=== PATIENT | female | born 1940 | race Caucasian/White ===

== ENCOUNTER 2020-02-10 16:51 | Outpatient (REF) | payer MEDICARE, SELFPAY ==
--- NOTE | 2020-02-10 16:55 | MM_ITS ---
EXAMINATION: MM SCREENING DIGITAL BREAST TOMOSYNTHESIS, BILATERAL CLINICAL INFORMATION: Screening. Asymptomatic. The lifetime risk of breast cancer based on the Tyrer-Cuzick Model is 4%. COMPARISON: Mammography: 08/01/2018, 07/24/2017 TECHNIQUE: Digital breast tomosynthesis is performed in both the craniocaudal and mediolateral oblique views along with computer-aided detection (CAD). Synthesized 2D images are generated from the tomosynthesis. FINDINGS: There are scattered areas of fibroglandular density (ACR BI-RADS breast composition Category b). There are no significant masses, abnormal calcifications, or other abnormalities. There is biopsy clip marker central left breast again noted. No significant changes from prior studies. The axilla and skin contours are unremarkable. MM/MM tomosynthesis screening BI IMPRESSION: No mammographic evidence of malignancy. ASSESSMENT: BI-RADS 1: Negative RECOMMENDATION: Routine annual mammography screening. This patient's information was entered into a reminder system with a target due date for their next mammogram.
== END 2020-02-10 16:52 | disposition home or self-care (01) ==
LOC: HO.MAMMO 16:51
PROVIDERS: PCP Internal Medicine; Visit Provider Internal Medicine
DX: Z12.31 Encounter for screening mammogram for malignant neoplasm of breast (principal)
CPT/HCPCS: 77063; 77067

== ENCOUNTER 2020-04-04 12:34 | Emergency (ER) | payer MEDICARE, SELFPAY ==
[2020-04-04 12:52] VITALS: BP 152/94; BP 187/78; PULSE 80; PULSE 83; RESP 16; TEMP 36.1; O2SAT 96; O2SAT 97; BMI 24.0
--- NOTE | 2020-04-04 13:12 | XR_ITS ---
EXAMINATION: XR KNEE, LEFT CLINICAL INFORMATION: Fall, trauma, pain COMPARISON: None TECHNIQUE: Left knee is imaged in 4 views including crosstable lateral projection. FINDINGS: There is a fracture involving the lateral tibial plateau with mild depression. There may be fracture line extending through the lateral tibial spine. There is no dislocation. The distal femur, fibula, and patella appear intact. There is moderate suprapatellar effusion without visible fatty fluid level. No bony destructive process. XR/XR knee LT 4V IMPRESSION: Fracture lateral tibial plateau with mild depression.
--- NOTE | 2020-04-04 13:14 | ED.GENADULT ---
HPI - General Adult General Chief complaint: Extremity Injury, Lower <Ainsley Mejia NP - Last Filed: 04/04/20 17:49> Stated complaint: left knee pain <Ainsley Mejia NP - Last Filed: 04/04/20 17:49> Time Seen by Provider: 04/04/20 12:56 <Ainsley Mejia NP - Last Filed: 04/04/20 17:49> Source: patient and EMS <Ainsley Mejia NP - Last Filed: 04/04/20 17:49> Mode of arrival: EMS <Ainsley Mejia NP - Last Filed: 04/04/20 17:49> Limitations: no limitations <Ainsley Mejia NP - Last Filed: 04/04/20 17:49> History of Present Illness HPI narrative: 79-year-old female with a past medical history of AFib on Eliquis, anxiety, high cholesterol, hypothyroidism here with left knee pain. The patient tells me she was standing on a step stool which was 1 step up and when she stepped back step stool fell forward onto her causing her to twist her left knee. She was able to catch herself with her arms but landed on her left knee. She denies hitting her head or loss of consciousness. No headache, dizziness, vision changes, nausea or vomiting. No neck pain. The patient tells me she is unable to bear weight on the knee since the injury. <Ainsley Mejia NP - Last Filed: 04/04/20 17:49> Onset (ago): hour(s) <Ainsley Mejia NP - Last Filed: 04/04/20 17:49> Location: lower extremity (left knee) <Ainsley Mejia NP - Last Filed: 04/04/20 17:49> Radiation: non-radiation <Ainsley Mejia NP - Last Filed: 04/04/20 17:49> Severity: moderate <Ainsley Mejia NP - Last Filed: 04/04/20 17:49> Quality: aching <PEGGY Mix Last Filed: 04/04/20 17:49> Pain Consistency: constant <PEGGY Mix Last Filed: 04/04/20 17:49> Relieving factors: immobilization <PEGGY Mix Last Filed: 04/04/20 17:49> Exacerbating factors: movement <Ainsley Mejia NP - Last Filed: 04/04/20 17:49> Associated symptoms: denies other symptoms <PEGGY Mix Last Filed: 04/04/20 17:49> Treatments prior to arrival: none <PEGGY Mix Last Filed: 04/04/20 17:49> Related Data Home medications: Previous Rx's Medication Instructions Recorded levothyroxine 50 mcg tablet 50 mcg PO DAILY #90 tab 01/31/20 oxycodone 2.5 mg PO Q6H PRN #5 tab 04/04/20 baclofen 10 mg tablet 10 mg PO BEDTIME #20 tab 04/05/20 <PEGGY Mix Last Filed: 04/04/20 17:49> Allergies/adverse reactions: Allergies Allergy/AdvReac Type Severity Reaction Status Date / Time lovastatin Allergy Unknown Verified 10/18/19 00:00 No Known Allergies Allergy Unknown Unverified 01/06/20 15:29 atorvastatin AdvReac Unknown stomach Verified 12/22/19 00:00 upset <PEGGY Mix Last Filed: 04/04/20 17:49> Review of Systems Review of Systems: Yes all other systems are reviewed and are negative <PEGGY Mix Last Filed: 04/04/20 17:49> Constitutional: Constitutional: Reports no additional constitutional complaints, Denies body ache(s), Denies chills, Denies fever(s), Denies headache(s) and Denies weakness <PEGGY Mix Last Filed: 04/04/20 17:49> Eyes: Eyes: Reports no additional eye complaints and Denies change in vision <PEGGY Mix Last Filed: 04/04/20 17:49> ENT: Reports system reviewed and no additional complaints, except as documented, Denies dizziness, Denies headache(s), Denies nasal congestion, Denies nasal discharge and Denies neck pain <Ainsley Mejia NP - Last Filed: 04/04/20 17:49> Cardiovascular: Cardiovascular: Reports no additional cardiovascular complaints, Denies chest pain, Denies leg edema and Denies dyspnea <Ainsley Mejia NP - Last Filed: 04/04/20 17:49> Respiratory: Respiratory: Reports no additional respiratory complaints, Denies cough and Denies dyspnea <Ainsley Mejia NP - Last Filed: 04/04/20 17:49> Gastrointestinal: Gastrointestinal: Reports no additional gastrointestinal complaints, Denies abdominal pain, Denies diarrhea, Denies nausea and Denies vomiting <Ainsley Mejia NP - Last Filed: 04/04/20 17:49> Genitourinary: Genitourinary: Reports no additional female genitourinary complaints and Denies urinary incontinence <Ainsley Mejia NP - Last Filed: 04/04/20 17:49> Musculoskeletal: Musculoskeletal: Reports no additional musculoskeletal complaints, Denies back pain, Reports arthralgias, Reports joint swelling, Denies neck pain, Denies numbness and Denies tingling <Ainsley Mejia NP - Last Filed: 04/04/20 17:49> Integumentary/Breasts: Skin/Breast: Reports system reviewed and no additional complaints, except as docu and Denies rash <Ainsley Mejia NP - Last Filed: 04/04/20 17:49> Neurologic: Reports system reviewed and no additional complaints, except as documented, Denies Abnormal speech present, Denies dizziness, Denies headache(s), Denies numbness, Denies tingling and Denies weakness <Ainsley Mejia NP - Last Filed: 04/04/20 17:49> PMFSH Past Medical History Attestation statement: The following information was validated with the patient. <Ainsley Mejia NP - Last Filed: 04/04/20 17:49> Source: old records reviewed and nursing notes reviewed <Ainsley Mejia NP - Last Filed: 04/04/20 17:49> Medical History: Medical History Afib Anxiety High cholesterol Hypothyroid <Ainsley Mejia NP - Last Filed: 04/04/20 17:49> Physical Exam Vital Signs: Vital Signs: Last Vital Signs Temp 97.0 F 04/04/20 12:52 Pulse 93 04/04/20 16:45 Resp 16 04/04/20 16:45 BP 150/72 H 04/04/20 16:45 Pulse Ox 96 04/04/20 16:45 Body Mass Index 24.0 <Ainsley Mejia NP - Last Filed: 04/04/20 17:49> Vital Signs: Last Vital Signs Temp 97.0 F 04/04/20 12:52 Pulse 93 04/04/20 16:45 Resp 16 04/04/20 16:45 BP 150/72 H 04/04/20 16:45 Pulse Ox 96 04/04/20 16:45 Body Mass Index 24.0 <Nick Mcdonald MD - Last Filed: 04/16/20 09:37> Const: General: cooperative, healthy appearing, comfortable and no acute distress <Ainsley Mejia NP - Last Filed: 04/04/20 17:49> Orientation/consciousness: patient oriented x3 <Ainsley Mejia NP - Last Filed: 04/04/20 17:49> Limitations: no limitations <Ainsley Mejia NP - Last Filed: 04/04/20 17:49> HENMT: Head: Yes normal to inspection <Ainsley Mejia NP - Last Filed: 04/04/20 17:49> Ears: hearing grossly normal bilaterally <Ainsley Mejia NP - Last Filed: 04/04/20 17:49> General nose exam: Normal external nose present <Ainsley Mejia NP - Last Filed: 04/04/20 17:49> Face and sinus: Yes normal facial exam <Ainsley Mejia NP - Last Filed: 04/04/20 17:49> Mouth: Normal oral and palatal mucosa present <Ainsley Mejia NP - Last Filed: 04/04/20 17:49> Throat: Yes posterior oropharynx normal <Ainsley Mejia NP - Last Filed: 04/04/20 17:49> Eyes: General: appearance normal, both eyes and all related structures <Ainsley Mejia NP - Last Filed: 04/04/20 17:49> Pupils: Equal, round and reactive pupils present <Ainsley Mejia NP - Last Filed: 04/04/20 17:49> Neck: Neck: Yes normal visual inspection <Ainsley Mejia BOOM CONVEYOR OPERATOR - Last Filed: 04/04/20 17:49> Chest: Chest palpation & inspection: normal inspection of the chest <Ainsley Mejia NP - Last Filed: 04/04/20 17:49> Resp: Effort & Inspection: normal respiratory effort <Ainsley Mejia NP - Last Filed: 04/04/20 17:49> Auscultation: clear to auscultation bilaterally <Ainsley Mejia NP - Last Filed: 04/04/20 17:49> Cardio: Rate: regular rate <Ainsley Mejia NP - Last Filed: 04/04/20 17:49> Rhythm: regular rhythm <Ainsley Mejia NP - Last Filed: 04/04/20 17:49> Peripheral pulses: Peripheral pulses 2+ throughout <Ainsley Mejia NP - Last Filed: 04/04/20 17:49> GI: Inspection: Yes normal to inspection <Ainsley Mejia NP - Last Filed: 04/04/20 17:49> Palpation (GI): Soft to palpation and nontender <Ainsley Mejia BOOM CONVEYOR OPERATOR - Last Filed: 04/04/20 17:49> Auscultation: normal bowel sounds <Ainsley Mejia NP - Last Filed: 04/04/20 17:49> Back/Spine/Pelvis: Thoracic/Lumbar Spine: thoracic and lumbar spine normal to inspection <Ainsley Mejia NP - Last Filed: 04/04/20 17:49> Skin: General skin exam: no rashes or lesions noted <Ainsley Mejia NP - Last Filed: 04/04/20 17:49> Neuro: General: patient oriented x3, no focal motor deficits and normal sensation to monofilament <Ainsley Mejia NP - Last Filed: 04/04/20 17:49> Cranial nerves: Yes Equal, round and reactive pupils present <Ainsley Mejia NP - Last Filed: 04/04/20 17:49> Cognition (Neuro): normal cognition <Ainsley Mejia NP - Last Filed: 04/04/20 17:49> Speech: No Abnormal speech present <Ainsley Mejia NP - Last Filed: 04/04/20 17:49> Gait exam (Neuro): Normal gait present <Ainsley Mejia NP - Last Filed: 04/04/20 17:49> Motor exam (neuro): 5/5 motor strength present throughout <Ainsley Mejia NP - Last Filed: 04/04/20 17:49> Extrem: Other: Left knee has moderate swelling, tenderness with a joint effusion. Able to extend the knee. Pain with flexion. NV intact distally. <Ainsley Mejia NP - Last Filed: 04/04/20 17:49> General: Yes normal to inspection <Ainsley Mejia NP - Last Filed: 04/04/20 17:49> Course Course Course Narrative: 79-year-old female here with left knee pain status post twisting injury. Will need imaging, analgesia. 1400-x-ray consistent with a lateral tibial plateau fracture with moderate effusion. Call out to orthopedics as discussed. 1454-discussed with [facility]. recommended CT without contrast to evaluate fracture. Knee immobilizer and nonweightbearing. 1730-CT shows Comminuted depressed and displaced lateral tibial plateau fracture, as detailed above. Bsnydmte-zf-axeaw lipohemarthrosis. Diffuse bone demineralization. [facility] from Orthopedics was updated on this finding. Recommended knee immobilizer and nonweightbearing and follow up in the office for outpatient surgical procedure. Patient was updated on this. She does live with a family member. She tells me she is able to live on the ground floor and has 2-3 steps to get up into her house. Case Management was made aware of the patient and they did arrange for services in the home as well. Patient wants to go home and does not want any short-term rehab placement. Reviewed worrisome signs and symptoms and when to return to the emergency department. Comfortable discharge home. <Ainsley Mejia NP - Last Filed: 04/04/20 17:49> I have reviewed the chart <Nick Mcdonald MD - Last Filed: 04/16/20 09:37> Procedures Orthopedic Splinting/Casting Injury #1: Side: left <Ainsley Mejia NP - Last Filed: 04/04/20 17:49> Lower Extremity Injury Location: knee <Ainsley Mejia NP - Last Filed: 04/04/20 17:49> Lower Extremity Immobilizer: knee immobilizer <Ainsley Mejia NP - Last Filed: 04/04/20 17:49> Medical Decision Making Imaging Data knee xtray: Attestation: I personally reviewed and interpreted this imaging study as follows: <Ainsley Mejia NP - Last Filed: 04/04/20 17:49> Radiologist's impression: CLINICAL INFORMATION: Fall, trauma, pain COMPARISON: None TECHNIQUE: Left knee is imaged in 4 views including crosstable lateral projection. FINDINGS: There is a fracture involving the lateral tibial plateau with mild depression. There may be fracture line extending through the lateral tibial spine. There is no dislocation. The distal femur, fibula, and patella appear intact. There is moderate suprapatellar effusion without visible fatty fluid level. No bony destructive process. XR/XR knee LT 4V IMPRESSION: Fracture lateral tibial plateau with mild depression. <Ainsley Mejia NP - Last Filed: 04/04/20 17:49> Discharge Plan Discharge Clinical Impression: Fracture of tibial plateau, closed <Ainsley Mejia NP - Last Filed: 04/04/20 17:49> Patient Disposition: Home, Self-Care <Ainsley Mejia NP - Last Filed: 04/04/20 17:49> Instructions: Leg Fracture (ED) <Ainsley Mejia NP - Last Filed: 04/04/20 17:49> Additional Instructions: Call orthopedic department tomorrow to schedule an appointment You should be strict nonweightbearing but are allowed to toe tap as we discussed Use the walker or wheelchair whenever is easier for you Ice the limb, splint with movement but you may loosen at rest Elevation Take the pain medicine with food <Ainsley Mejia NP - Last Filed: 04/04/20 17:49> Prescriptions: New oxycodone 5 mg tablet 2.5 mg PO Q6H PRN (Reason: pain) Qty: 5 RF: 0 No Action levothyroxine 50 mcg tablet 50 mcg PO DAILY Qty: 90 RF: 2 baclofen 10 mg tablet 10 mg PO BEDTIME Qty: 20 RF: 0 <Ainsley Mejia NP - Last Filed: 04/04/20 17:49> Referrals: Yamile Hearn MD [Primary Care Provider] - 2 days Fredrick Curtis MD [Physician] - 2 days <Ainsley Mejia NP - Last Filed: 04/04/20 17:49> Interventions: ED Discharge Assessment Last Done: 04/04/20 17:52 <Ainsley Mejia NP - Last Filed: 04/04/20 17:49> Discharge Date/Time: 04/04/20 17:40 <Ainsley Mejia NP - Last Filed: 04/04/20 17:49>
[2020-04-04 13:45] VITALS: BP 187/78; PULSE 73; RESP 16; O2SAT 99
[2020-04-04] MEDS: Acetaminophen 325 MG TABLET 975 MG PO (13:50)
--- NOTE | 2020-04-04 14:53 | CT_ITS ---
EXAMINATION: CT KNEE, LEFT CLINICAL INFORMATION: Evaluate tibial plateau fracture. COMPARISON: X-ray 04/04/2020 TECHNIQUE: Axial imaging. Sagittal and coronal reconstructions. FINDINGS: Comminuted fracture of the lateral tibial plateau. There is intra-articular extension of the fracture planes, as well as the fracture planes inferiorly extending to the lateral cortex of the proximal tibial metaphysis. There is depression of the articular surface, of approximately up to 7-8 mm. There is associated displacement present, including a region of fracture gap at the articular surface measuring approximately 0.8 cm AP, as seen on image 173 series 10. Fracture planes extending through the tibial spines. There is diffuse bone demineralization. No additional acute fractures identified. Quadriceps tendon insertional enthesopathy. There is zezdyidc-cd-ywzkz lipohemarthrosis. CT/CT knee LT wo con IMPRESSION: Comminuted depressed and displaced lateral tibial plateau fracture, as detailed above. Jibojocw-sx-tuygl lipohemarthrosis. Diffuse bone demineralization.
[2020-04-04] MEDS: oxyCODONE HCl Immed Release 5 MG TABLET 2.5 MG PO (15:14)
--- NOTE | 2020-04-04 15:43 | MHC.CM.ED ---
Met with patient. C/O severe knee pain. Has just medicated with oxycodone about [address] ago[address] knee report and knee immobilizer. Family has walker. Pt states she lives alone, but grand daughter sleeps at her home and her son or daughter live nearby and can help her. CM explained that someone would have to stay with her, as she will need help getting up and using BR. Pt states family will be able to care for her. Pt does not want to go to rehab. Will call family for transportation home. Relayed above conversation to ANDREW
--- NOTE | 2020-04-04 16:16 | MHC.CM.ED ---
Met with pat. Much more comfortable with knee emobilizer applied. Pain medication binging to work. Will complete HCP with pt. Eliza Wayne, daughter, will be HCP.
--- NOTE | 2020-04-04 16:39 | MHC.CM.ED ---
HCP review, completed and signed. Scanned into medical record and faxed to [employer]. Copies to pt
[2020-04-04 16:45] VITALS: BP 150/72; PULSE 93; RESP 16; O2SAT 96
--- NOTE | 2020-04-04 16:49 | PC.NURSE ---
case management at bedside, pt to go home, states family able to assist her, pt states son has walker and her friend has wc
== END 2020-04-04 17:40 | disposition home or self-care (01) ==
PROVIDERS: Emergency Provider Emergency Medicine; PCP Internal Medicine
DX: S82.142A Displaced bicondylar fracture of left tibia, initial encounter for closed fracture (principal); M25.562 Pain in left knee; W01.0XXA Fall on same level from slipping, tripping and stumbling without subsequent striking against object, initial encounter; Y93.9 Activity, unspecified; Y92.9 Unspecified place or not applicable; Y99.9 Unspecified external cause status; Z79.899 Other long term (current) drug therapy
CPT/HCPCS: 29505; 73564; 73700; 99284

== ENCOUNTER 2020-08-22 10:22 | Outpatient (REF) | payer MEDICARE, SELFPAY ==
[2020-08-22 11:31] LABS: Hematocrit 41.7 % (37-47); Hemoglobin 13.4 g/dl (12.0-16.0); Mean Corpuscular HGB Conc 32.1 g/dl (31.0-35.0); Mean Corpuscular Hemoglobin 30.2 pg (27.0-33.0); Mean Corpuscular Volume 94.1 fL (80-98); Mean Platelet Volume 10.4 fL (9.4-12.3); Platelet Count 202 X10*3/uL (160-400); Red Blood Count 4.43 X10*6/uL (4.20-5.50); Red Cell Distribution Width 13.5 % (11.0-16.0); White Blood Count 5.3 X10*3/uL (4.8-10.8)
[2020-08-22 12:01] LABS: Alanine Aminotransferase 19 U/L (0-31); Albumin Level 4.2 g/dL (3.5-5.0); Alkaline Phosphatase 107 U/L (39-117); Anion Gap 10 (12-20); Aspartate Amino Transferase 27 U/L (5-31); Bilirubin Total 0.5 mg/dL (0.0-1.0); Blood Urea Nitrogen 17 mg/dL (9-16); Calcium 9.4 mg/dL (8.4-10.2); Carbon Dioxide 30 mmol/L (22-29); Chloride 105 mmol/L (96-108); Cholesterol 134 mg/dL; Estimated Glomerular Filt Rate > 60; Glucose Fasting 84 mg/dL (60-99); HDL Cholesterol 62 mg/dL; LDL Cholesterol Calculated 63 mg/dl; Potassium 4.1 mmol/L (3.3-5.1); Sodium 141 mmol/L (135-145); Total Protein 6.5 g/dL (6.5-8.0); Triglycerides 46 mg/dL
[2020-08-22 12:08] LABS: TSH reflex Free T4 1.45 uIU/mL (0.32-4.0); Vitamin D 25-OH Total 50.1 ng/mL (>30)
== END 2020-08-22 10:23 | disposition home or self-care (01) ==
LOC: HO.HMGCLDS 10:22
PROVIDERS: PCP Internal Medicine; Visit Provider Internal Medicine
DX: E03.9 Hypothyroidism, unspecified (principal); I48.91 Unspecified atrial fibrillation; S82.209A Unspecified fracture of shaft of unspecified tibia, initial encounter for closed fracture; X58.XXXA Exposure to other specified factors, initial encounter; Y93.9 Activity, unspecified; Y92.9 Unspecified place or not applicable; Y99.9 Unspecified external cause status
CPT/HCPCS: 36415; 80053; 80061; 82306; 84443; 85027

== ENCOUNTER → 2020-08-23 13:08 | Outpatient (REF) | payer MEDICARE, SELFPAY ==
--- NOTE | 2020-08-23 13:12 | ECG_ITS ---
Hook-up date: 2020-08-23 13:17:00 Duration: 41:55:00 Test Indications: Persistent A FIB Medications: 694304 QRS complexes 1424 Ventricular ectopics which represent 1 % of total QRS comp. * Supraventricular ectopics which represent % of total QRS comp. * Paced QRS complexs which represent % of total QRS comp. VENTRICULAR ECTOPY 1279 Isolated 0 Bigeminal Cycles 71 Couplets 1 Runs 3 Beats in Runs 3 Beats LONGEST at 147 BPM at 10:18:42 2020-08-24 3 Beats FASTEST at 147 BPM at 10:18:42 2020-08-24 SUPRAVENTRICULAR ECTOPY * Isolated * Couplets * Runs * Beats in Runs * Beats LONGEST at * BPM at :: -- * Beats FASTEST at * BPM at :: -- HEART RATES 44 MIN at 03:07:36 2020-08-24 75 AVG 129 MAX at 20:42:49 2020-08-23 LONGEST RR 1.8800 secs at 02:15:11 2020-08-24 S-T LEVELS Channel 1 - 128 mm at 13:17:00 2020-08-23 - 128 mm at 13:17:00 2020-08-23 Channel 2 - 128 mm at 13:17:00 2020-08-23 - 128 mm at 13:17:00 2020-08-23 Channel 3 - 128 mm at 03:23:61 -- - 128 mm at 03:23:61 Underlying rhythm is atrial fibrillation; Average ventricular rate 75/min; range 44-129/min; Occasional PVCs (1%); mostly isolated; one 3 beat run at 147/min; Overall, atrial fibrillation appears well controlled; Patient did not report any symptoms in the diary Referred By: Laura Patterson Overread By: LAURA PATTERSON
== END ==
LOC: HO.CARD 13:08
PROVIDERS: Visit Provider Internal Medicine
DX: I48.19 Other persistent atrial fibrillation (principal)
CPT/HCPCS: 93225; 93226

== ENCOUNTER → 2020-09-06 08:03 | Outpatient (BNVA) | payer MEDICARE, SELFPAY | PROVIDERS: PCP Internal Medicine; Visit Provider Internal Medicine | DX: I48.19 Other persistent atrial fibrillation (principal); I36.1 Nonrheumatic tricuspid (valve) insufficiency; I10 Essential (primary) hypertension; I05.9 Rheumatic mitral valve disease, unspecified; R94.39 Abnormal result of other cardiovascular function study; Z87.74 Personal history of (corrected) congenital malformations of heart and circulatory system; Z98.890 Other specified postprocedural states | CPT/HCPCS: 93005; 99212 ==

== ENCOUNTER → 2021-02-13 09:15 | Outpatient (REF) | payer MEDICARE, SELFPAY ==
--- NOTE | 2021-02-13 09:17 | CA_ITS ---
Transthoracic Echocardiogram Patient (Last, First, Middle): Aneta Broussard A Gender: Female Date of : 1940 Age: 80 Procedure Date: 02/13/2021 Procedure Type: Transthoracic Echocardiogram Location: OP Height: 162.56 cm Weight: 65.77 kg BSA: 1.71 m2 Heart Rate: bpm BP: 160 / 80 mmHg Insert Cutter: WINSOME Referring MD: Juarez Coreas MD Symptoms: I36.1 - Nonrheumatic tricuspid (valve) insufficiency Study Quality: Fair ECG Rhythm: Frequent atrial premature beats Conclusions: - The left ventricular systolic function is normal. The visually estimated ejection fraction is between 55-60%. - Moderate biatrial enlargement. - There is mild calcification of the aortic valve. - There is moderate mitral annular calcification. There is mild mitral valve regurgitation. - Mild pulmonary hypertension is present. Findings Left Ventricle Normal left ventricular cavity size. There is mildly increased left ventricular wall thickness. The left ventricular systolic function is normal. The visually estimated ejection fraction is between 55-60%. There is no evidence of regional wall motion abnormalities. Diastolic function is indeterminate on the basis of available data. LV peak GLS -13.5%. Right Ventricle Normal right ventricular cavity size. There is mildly decreased right ventricular systolic function. Atria Moderate biatrial enlargement. Aortic Valve There is mild calcification of the aortic valve. There is no aortic valve stenosis. There is no aortic valve regurgitation. Mitral Valve There is moderate mitral annular calcification. There is mild mitral valve regurgitation. There is no mitral valve stenosis. Pulmonic Valve The pulmonic valve was not well visualized. Tricuspid Valve There is mild tricuspid valve regurgitation. The right ventricular systolic pressure is 39 mmHg. Mild pulmonary hypertension is present. Great Vessels The aortic annulus, sinuses of valsalva, and asc aorta are normal in size. Venous The inferior vena cava is normal in size and collapses greater than 50% with inspiration. Pericardium/Pleural There is no evidence of pericardial effusion. Prior Study Comparison Changes noted compared to prior study dated: 10/01/2019. Tricuspid regurgitation is less prominent. Measurements 2D Linear Measurements IVSd: 1.23 0.6-0.9/0.6-1.0 cm LVIDd: 4.37 3.9-5.3/4.2-5.9 cm LVIDd Index: 2.56 2.4-3.2/2.2-3.1 cm/m2 LVIDs: 3.08 2.0-3.6 cm LVPWd: 1.11 0.7-1.1 cm Ao Root: 2.80 2.1-3.5 cm LA Diam: 4.90 2.7-3.8/3.0-4.0 cm LAIDs Index: 2.87 1.5-2.3 cm/m2 LV Mass: 227.40 67-162/88-224 g LV Mass Index: 132.99 43-95/49-115 g/m2 LVOT Diam: 1.90 3.0+(-)1.3 cm 2D Systolic Function EF 4C: 33.20 >55% EF 2C: 54.30 >55% EF BiP: 45.50 >55% Mitral Valve MV Pk E: 1.02 MV Decel Time: 161.00 E'Lateral: 13.60 E'Medial: 8.73 E/E' Med: 11.70 E/E' Lat: 7.50 PHT: 47.00 MVA PHT: 4.68 Decel [place]: 6.31 Aortic Valve AoV Pk Forrest: 1.37 AoV Pk Grad: 8.00 LVOT LVOT Pk Forrest: 0.92 LVOT Mn Forrest: 0.56 LVOT VTI: 0.17 LVOT Pk Grad: 3.00 LVOT Mn Grad: 2.00 LVOT Diam: 1.90 LVOT Area: 2.84 Diastolic Function MV Pk E: 1.02 E'Medial: 8.73 E/E' Med: 11.70 E' Laterial: 13.60 E/E' Lat: 7.50 Tricuspid Valve TR Pk Forrest: 3.00 TR Pk Grad: 36.00 RA Press: 3.00 RVSP: 39.00 Great Vessels Aorta Ao Root-2D: 2.80 2.0-3.7 cm Ao Asc: 3.10 2.1-3.4 cm Updated in Other Vendor System with Status of Final Juarez Coreas MD electronically signed on 02/14/2021 8:50:54 AM with status of Final
== END ==
LOC: HO.CARD 09:15
PROVIDERS: PCP Internal Medicine; Visit Provider Internal Medicine
DX: I05.9 Rheumatic mitral valve disease, unspecified (principal); I36.1 Nonrheumatic tricuspid (valve) insufficiency; Z87.74 Personal history of (corrected) congenital malformations of heart and circulatory system
CPT/HCPCS: 93306; 93356

== ENCOUNTER → 2021-02-21 08:22 | Outpatient (BNVA) | payer MEDICARE, SELFPAY | PROVIDERS: PCP Internal Medicine; Referring Provider Internal Medicine; Visit Provider Internal Medicine | DX: I48.19 Other persistent atrial fibrillation (principal); I50.9 Heart failure, unspecified; I36.1 Nonrheumatic tricuspid (valve) insufficiency; I10 Essential (primary) hypertension; R94.39 Abnormal result of other cardiovascular function study; Z98.890 Other specified postprocedural states; Z87.74 Personal history of (corrected) congenital malformations of heart and circulatory system | CPT/HCPCS: 99212 ==

== ENCOUNTER 2021-02-22 13:10 | Outpatient (REF) | payer MEDICARE, SELFPAY ==
--- NOTE | ~2021-02-22 | MM_ITS ---
EXAMINATION: MM SCREENING DIGITAL BREAST TOMOSYNTHESIS, BILATERAL CLINICAL INFORMATION: Screening. Asymptomatic. The lifetime risk of breast cancer based on the Tyrer-Cuzick Model is 3.7%. COMPARISON: Mammography: February 10, 2020 and studies dating back to June 13, 2009 TECHNIQUE: Digital breast tomosynthesis is performed in both the craniocaudal and mediolateral oblique views along with computer-aided detection (CAD). Synthesized 2D images are generated from the tomosynthesis. FINDINGS: There are scattered areas of fibroglandular density (ACR BI-RADS breast composition Category b). There are no new significant masses, abnormal calcifications, or other abnormalities. Stable region of architectural distortion seen upper outer aspect of the left breast. MM/MM tomosynthesis screening BI IMPRESSION: There are no significant changes from prior study. ASSESSMENT: BI-RADS 2: Benign RECOMMENDATION: Routine annual mammography screening. This patient's information was entered into a reminder system with a target due date for their next mammogram.
--- NOTE | ~2021-02-22 | MM_ITS ---
EXAMINATION: BONE DENSITOMETRY CLINICAL INDICATION: Unspecified fracture of shaft of unspecified tibia. COMPARISON: Baseline BD dated 06/02/2008. TECHNIQUE: Using a [employer] DXA System (software version: 13.1) manufactured by [employer], dual-energy x-ray absorptiometry was performed of the lumbar spine and left hip. The images are of good technical quality. Summary results are attached. FINDINGS: AP SPINE L1-L4: Current: BMD 1.227 g/cm2, Z-score 2.1, T-score 0.4, normal, 0.2% increase from baseline (<5% change is not significant). Baseline: BMD 1.225 g/cm2. LEFT FEMUR, NECK: Current: BMD 0.713 g/cm2, Z-score -0.3, T-score -2.3, osteopenia. Baseline: BMD 0.831 g/cm2. LEFT FEMUR, TOTAL: Current: BMD 0.765 g/cm2, Z-score -0.1, T-score -1.9, osteopenia, 14.7% decrease from baseline (<5% change is not significant). Baseline: BMD 0.897 g/cm2. IDENTIFIED RISK FACTORS: Menopause, history of fracture (adult). HISTORY OF FRACTURE: None listed. MEDICATIONS: Vitamin D. MM/XR DEXA axial skeleton IMPRESSION: 1. DIAGNOSIS: Osteopenia based on the lowest T-score value of -2.3 in the femoral neck applying World Health Organization criteria. 2. 10-YEAR FRACTURE RISK PREDICTION, FRAX: Major osteoporotic fracture (clinical spine, forearm, hip or shoulder) 25.5%. Hip fracture 7.8%. 3. Treatment Recommendations: NOF guidelines recommend consideration for treatment in postmenopausal women and men age 50 and older presenting with the following: -A hip or vertebral (clinical or morphometric) fracture. -T-score less than or equal to -2.5 at the femoral neck or spine after appropriate evaluation to exclude secondary causes. -Low bone mass at the hip or spine and a 10-year fracture probability by FRAX of greater than or equal to 3% for hip fracture or greater than or equal to 20% for major osteoporotic fracture based on the [place] adapted WHO algorithm. 4. Other Recommendations: All treatment decisions require clinical judgment and consideration of individual patient factors, including patient preferences, comorbidities, previous drug use, risk factors not captured in the FRAX model (e.g. frailty, falls, vitamin D deficiency, increased bone turnover, interval significant decline in bone density) and possible under or overestimation of fracture risk by FRAX. Additional medical evaluation for secondary cause of low bone mineral density may be appropriate. FUTURE SCAN RECOMMENDATION: People with diagnosed cases of osteoporosis or at high risk for fracture should have regular bone mineral density tests. For patients eligible for Medicare, routine testing is allowed once every 2 years. The testing frequency can be increased to one year for patients who have rapidly progressing disease, those who are receiving or discontinuing medical therapy to restore bone mass, or have additional risk factors.
== END 2021-02-22 13:11 | disposition home or self-care (01) ==
LOC: HO.MAMMO 13:10
PROVIDERS: Visit Provider Internal Medicine
DX: Z12.31 Encounter for screening mammogram for malignant neoplasm of breast (principal); Z13.820 Encounter for screening for osteoporosis; M81.0 Age-related osteoporosis without current pathological fracture; Z78.0 Asymptomatic menopausal state; S82.209A Unspecified fracture of shaft of unspecified tibia, initial encounter for closed fracture; Z87.81 Personal history of (healed) traumatic fracture; Z79.899 Other long term (current) drug therapy
CPT/HCPCS: 77063; 77067; 77080

== ENCOUNTER → 2021-08-28 08:37 | Outpatient (BNVA) | payer MEDICARE, SELFPAY | PROVIDERS: PCP Internal Medicine; Referring Provider Internal Medicine; Visit Provider Internal Medicine | DX: I48.19 Other persistent atrial fibrillation (principal); I05.9 Rheumatic mitral valve disease, unspecified; I36.1 Nonrheumatic tricuspid (valve) insufficiency; I10 Essential (primary) hypertension; R94.39 Abnormal result of other cardiovascular function study; Z87.74 Personal history of (corrected) congenital malformations of heart and circulatory system; Z98.890 Other specified postprocedural states | CPT/HCPCS: 93005; 99212 ==

== ENCOUNTER 2021-09-21 08:15 | Outpatient (REF) | payer MEDICARE, SELFPAY ==
[2021-09-21 11:28] LABS: MANUAL DIFF FLAG NO
[2021-09-21 11:39] LABS: Basophils Percent Auto 0.3 % (0-2); Eosinophils Absolute Auto 0.1 X10*3/uL (0.0-0.4); Eosinophils Percent Auto 1.4 % (0-4); Hematocrit 40.8 % (37.0-47.0); Hemoglobin 13.2 g/dl (12.0-16.0); Imm Gran Abs Auto 0.02 X10*3/uL (0.00-0.03); Imm Gran Pct Auto 0.3 % (0.0-0.4); Lymphocytes Absolute Auto 2.1 X10*3/uL (1.2-4.9); Mean Corpuscular HGB Conc 32.4 g/dl (31.0-35.0); Mean Corpuscular Hemoglobin 30.1 pg (27.0-33.0); Mean Corpuscular Volume 93.2 fL (80.0-98.0); Monocytes Absolute Auto 0.8 X10*3/uL (0.1-1.2); Monocytes Percent Auto 11.6 % (2-11); Neutrophils Absolute Auto 3.7 x10*3/uL (2.0-8.3); Neutrophils Percent Auto 55.4 % (45-73); Platelet Count 261 X10*3/uL (160-400); Red Blood Count 4.38 X10*6/uL (4.20-5.50); Red Cell Distribution Width 13.1 % (11.0-16.0); White Blood Count 6.6 X10*3/uL (4.8-10.8)
[2021-09-21 12:01] LABS: Alanine Aminotransferase 18 U/L (0-31); Albumin Level 4.2 g/dL (3.5-5.0); Alkaline Phosphatase 100 U/L (39-117); Anion Gap 11 (12-20); Aspartate Amino Transferase 27 U/L (5-31); Bilirubin Total 0.5 mg/dL (0.0-1.0); Blood Urea Nitrogen 17 mg/dL (9-16); Calcium 9.7 mg/dL (8.4-10.2); Carbon Dioxide 28 mmol/L (22-29); Chloride 105 mmol/L (96-108); Cholesterol 138 mg/dL; Estimated Glomerular Filt Rate > 60; Glucose Fasting 92 mg/dL (60-99); HDL Cholesterol 60 mg/dL; LDL Cholesterol Calculated 68 mg/dl; Potassium 4.1 mmol/L (3.3-5.1); Sodium 140 mmol/L (135-145); Total Protein 6.9 g/dL (6.5-8.0); Triglycerides 50 mg/dL
[2021-09-21 12:05] LABS: TSH reflex Free T4 2.79 uIU/mL (0.32-4.0)
== END 2021-09-21 08:16 | disposition home or self-care (01) ==
LOC: HO.HMGCLDS 08:15
PROVIDERS: PCP Internal Medicine; Visit Provider Internal Medicine
DX: J44.9 Chronic obstructive pulmonary disease, unspecified (principal); I48.19 Other persistent atrial fibrillation; I10 Essential (primary) hypertension; E03.9 Hypothyroidism, unspecified
CPT/HCPCS: 36415; 80053; 80061; 84443; 85025

== ENCOUNTER → 2021-11-09 08:20 | Outpatient (BNVA) | payer MEDICARE, SELFPAY | PROVIDERS: PCP Internal Medicine; Visit Provider Nurse Practitioner Family | DX: K64.9 Unspecified hemorrhoids (principal); K58.2 Mixed irritable bowel syndrome; K59.00 Constipation, unspecified | CPT/HCPCS: 99202; 99212 ==

== ENCOUNTER → 2022-01-11 08:17 | Outpatient (BNVA) | payer MEDICARE, SELFPAY | PROVIDERS: PCP Internal Medicine; Referring Provider Internal Medicine; Visit Provider Nurse Practitioner Family | DX: Z01.818 Encounter for other preprocedural examination (principal); K62.5 Hemorrhage of anus and rectum; K58.9 Irritable bowel syndrome, unspecified | CPT/HCPCS: 99212 ==

== ENCOUNTER 2022-02-27 10:38 | Outpatient (REF) | payer MEDICARE, SELFPAY ==
--- NOTE | ~2022-02-27 | MM_ITS ---
EXAMINATION: MM SCREENING DIGITAL BREAST TOMOSYNTHESIS, BILATERAL CLINICAL INFORMATION: Screening. Asymptomatic. Family history breast cancer, sister. COMPARISON: Mammography: 02/22/2021, 02/10/2020, 08/01/2018 TECHNIQUE: Digital breast tomosynthesis is performed in both the craniocaudal and mediolateral oblique views along with computer-aided detection (CAD). Synthesized 2D images are generated from the tomosynthesis. FINDINGS: There are scattered areas of fibroglandular density (ACR BI-RADS breast composition Category b). There are no significant masses, abnormal calcifications, or other abnormalities. There is biopsy clip marker again noted central left breast. There are scattered bilateral predominantly vascular calcifications. The axilla and skin contours are unremarkable. No significant changes. MM/MM tomosynthesis screening BI IMPRESSION: No mammographic evidence of malignancy. ASSESSMENT: BI-RADS 2: Benign RECOMMENDATION: Routine annual mammography screening. This patient's information was entered into a reminder system with a target due date for their next mammogram.
== END 2022-02-27 10:39 | disposition home or self-care (01) ==
LOC: HO.MAMMO 10:38
PROVIDERS: PCP Internal Medicine; Visit Provider Internal Medicine
DX: Z12.31 Encounter for screening mammogram for malignant neoplasm of breast (principal)
CPT/HCPCS: 77063; 77067

== ENCOUNTER 2022-03-18 08:39 | Day surgery (SDC) | payer MEDICARE, SELFPAY ==
[2022-03-07 13:34] VITALS: BMI 24.0
[2022-03-18 09:20] VITALS: BP 105/88; PULSE 89; RESP 18; TEMP 36.6; O2SAT 95
--- NOTE | 2022-03-18 09:28 | P.HPSUR_ITS ---
Pre-Procedural Eval Section A Date of Service: 03/18/22 The patient is an INPATIENT: No The History & Physical has been completed within 30 days and I have reviewed it.: No Section B Chief Complaint: IBS,bleeding Details of Present Illness: Colon cancer screening, IBS with diarrhea and constipation, rectal bleeding Relevant Family History (Specify if Yes): No Relevant Social History: None Present Medications: see Short Stay Collaborative assessment Medical History: Significant History (Abnormal myocardial perfusion study Afib A nnual physical exam Anxiety Atrial septal defect Cancer, skin, squamous cell COPD (chronic obstructive pulmonary disease) High cholesterol Hypothyroid Osteoporosis Persistent atrial fibrillation Tibia fracture) History of Previous Operations: Relevant previous surgery/procedure and date(s) (Status post atrial septal defect repair Status post bilateral carotid endarterectomy Status post cardiac surgery Status post carotid endarterectomy) Allergies: Allergies Allergy/AdvReac Type Severity Reaction Status Date / Time lovastatin Allergy Intermediate Gastrointestinal Verified 03/07/22 13:36 Upset atorvastatin AdvReac Intermediate Gastrointestinal Verified 03/07/22 13:36 Upset Review of Systems Sugical H&P ROS: Negative: Constitution, Cardiovascular and Respiratory and Yes, Specify: Gastrointestinal (IBS, rectal bleeding) Exam Surgical H&P Exam: Normal: Lungs and Normal: Abdomen and Significant Findings: Heart (Irregularly irregular due to AF) Plan Diagnosis/Plan: Unchanged I have reviewed the history and physical and performed a pertinent physical examination on my patient. No changes have occurred unless specified.
--- NOTE | 2022-03-18 09:29 | P.OP_ITS ---
Operative Note Operative Note Date of Service: 03/18/22 Narrative: Pre-op diagnosis: Colon cancer screening, IBS with diarrhea and constipation, rectal bleeding Post-op diagnosis:?other (Colon polyps, diverticulosis, hemorrhoids) Surgeon: Александр Jackson MD Anesthesia:?MAC Housing Coordinator:?[employer] COLONOSCOPY TILL CECUM WITH BIOPSIES, SNARE POLYPECTOMY, SUBMUCOSAL INJECTION, HEMOCLIP PLACEMENT Consent: Indications for the procedure and potential complications of bleeding, perforation, reaction to medications and missed diagnosis were discussed with the patient and informed consent was obtained. Instrument: Olympus PCF H 190 L variable stiffness pediatric colonoscope Monitoring: Vital signs and clinical assessment, intermittent blood pressure monitoring, continuous EKG monitoring, Pulse oximetry and Carbon Dioxide monitoring were done throughout the procedure. Colon withdrawl time was 52 minutes. Procedure: The patient was placed in the left lateral decubitis position and pre-procedure medications were administered. After a digital rectal examination of the ano-rectum, the video colonoscope was inserted into the rectum and advanced through the colon to the cecum. The colonoscope was slowly withdrawn in a retrograde panoramic fashion and the colon mucosa was carefully examined including a retroflexed view of the rectum. Findings and interventions are described below. Procedure Difficulty: Without difficulty Findings: Terminal Ileum: Not evaluated Cecum: Normal Ascending Colon: Normal Transverse Colon: A 7-8 mm sessile polyp removed with a hot snare Descending Colon: Moderate diverticulosis Sigmoid Colon: Severe diverticulosis with luminal narrowing Rectum: A 4 x 3 cms carpet polyp in the rectum at 5 cms. Polyp was raised with 10 cc of normal saline and removed piece-meal with a stiff snare. Margins of polypectomy site were treated with APC and marked by magalis ink. Polypectomy site was closed with hemoclips x 2. Ano-rectum: Moderate internal hemorrhoids Colon preparation: Good Impression and Post Procedure Diagnosis: Colonoscopy Findings: One small and one large polyps removed Random biopsies were obtained from the right colon. Moderate to severe diverticulosis seen in the left colon Moderate hemorrhoids on retroflexed exam. Plan: Await pathology results. Resume Eliquis on 03/24/22 Patient has an appointment on 04/01/22 in the [facility] with Toshia Contreras FNP-BC. Repeat sigmoidoscopy with colon prep in 3-4 months if rectal polyp is adenomatous to check polypectomy site and 10 years if polyps are hyperplastic. Above findings were reviewed with the patient and colon polyps and diverticulo sis handouts were given in the discharge area
--- NOTE | 2022-03-18 09:29 | PM.OP ---
Brief Operative Note Date of Service: 03/18/22 Pre-op diagnosis: Colon cancer screening, IBS with diarrhea and constipation, rectal bleeding Post-op diagnosis: other (Colon polyps, diverticulosis, hemorrhoids) Procedure: COLONOSCOPY TO CECUM WITH BIOPSIES, SNARE POLYPECTOMY, APC, SUBMUCOSAL INJECTION AND HEMOCLIP PLACEMENT Surgeon: Александр Jackson MD Anesthesia: MAC Was an Health Care / Medical Job Titles used for this Procedure?: Yes Health Care / Medical Job Titles: [employer] Estimated blood loss (mL): 0 Pathology: other ( A. RANDOM RIGHT COLON B. TRANSVERSE COLON POLYP C. RECTAL POLYP) Condition: stable Disposition: PACU
[2022-03-18 09:30] VITALS: BMI 24.0
--- NOTE | 2022-03-18 10:01 | HO.ANESPROP2 ---
HPI - Anesthesia Eval Consult details Narrative: 81 yo female patient for colonoscopy [facility] Active Problems Active Problems: All Active Problems (Updated 03/07/22 @ 13:15 by Sari Purvis RN) Status post atrial septal defect repair (Acute) Mitral annular calcification (Acute) Non-rheumatic tricuspid valve insufficiency (Acute) Essential hypertension (Acute) Rectal bleeding (Acute) Annual physical exam (Acute) Abnormal myocardial perfusion study (Acute). Denies chest pain Status post bilateral carotid endarterectomy (Acute) Atrial septal defect (Acute) Persistent atrial fibrillation (Acute) COPD (chronic obstructive pulmonary disease) (Acute) Osteoporosis (Acute) Hypothyroid (Acute) Afib (Acute). On eliquis. Last dose 03/16/22 Tibia fracture (Acute) Past Medical History Medical History Abnormal myocardial perfusion study Annual physical exam Anxiety Atrial septal defect Cancer, skin, squamous cell COPD (chronic obstructive pulmonary disease) High cholesterol Hypothyroid Osteoporosis Persistent atrial fibrillation Tibia fracture Family History Family History Maternal Aunt Cervical cancer Family history of problems with anesthesia: No Surgical History Surgical History H/O colonoscopy History of esophagogastroduodenoscopy (EGD) Hx of bilateral cataract extraction Status post bilateral carotid endarterectomy Status post cardiac surgery History of Problems with Anesthesia: No Social History Social History Housing: House Are you a primary child care associate teacher to a significant other at home: No Alcohol intake: current Alcohol intake frequency: does not drink Patient Tobacco Use Status: Former Tobacco user Quit Date: 2013 Tobacco use type: Cigarette e-Cigarette/Vaping Use: Never Used Use of substances other than those prescribed or required for medical reasons: No Have you been hit, kicked, punched, or otherwise hurt by someone within the past year? If so, by whom?: No Advance Directives: Yes Advance Directives Information Provided: Yes Advance Directives on File: Yes Advance Directives Date on File: 04/04/20 Recently lost weight without trying: No Eating poorly because of decreased appetite: No Nutrition Risks: Surgical patient >75years Poor oral hygiene: No (upper full denture) Current occupational status: retired Cognitive needs: No Hearing needs: No Vision needs: Yes Meds Allergies Allergy/AdvReac Type Severity Reaction Status Date / Time lovastatin Allergy Intermediate Gastrointestinal Verified 03/07/22 13:36 Upset atorvastatin AdvReac Intermediate Gastrointestinal Verified 03/07/22 13:36 Upset Home Medications Medication Instructions Recorded Confirmed Last Taken Type triamcinolone acetonide 0.1 % appl topical 08/22/20 08/28/21 Unknown History topical cream Exam Exam Date and Time: March 18, 2022 1001 Height,Weight and Vital Signs: Height 5 ft 4 in Weight 63.503 kg Last Vital Signs Temp 97.9 F 03/18/22 09:20 Pulse 89 03/18/22 09:20 Resp 18 03/18/22 09:20 BP 105/88 03/18/22 09:20 Pulse Ox 95 03/18/22 09:20 O2 Del Method 03/18/22 09:20 Airway Mallampati Class: II TM Dist: >3cm Neck ROM: Full Denture: Upper Loose/Missing/Broken Teeth: Yes (Some missing lower) Heart: Irregularly irregular Lungs: CTAB Assessment and Plan Assessment Anesthesia Assessment: Anesthesia Plan Discussed and Chart Reviewed Final Anesthetic Review Family History of Problems with Anesthesia: No History of Problems with Anesthesia: No NPO: Yes ASA Class: III Final Preanesthetic Review: No Changes in Pt Med Stat, Meds/Allgs Chart Reviewed, Consent Obtained/Reviewed and Anes Risks/Benef Reviewed Patient Risk: Intermediate Procedure Risk: Low Assessment/Block/Sedation in SS: Assess/Block/Sedation-SS Anesthetic Plan Anesthetic Plan: MAC: Disposition: Standard PACU
[2022-03-18] MEDS: Lactated Ringers 1,000 ML 100 ML IVCONT (10:07)
[2022-03-18 11:53] VITALS: BP 102/46; PULSE 79; RESP 17; TEMP 36.6; O2SAT 100
[2022-03-18 12:08] VITALS: BP 122/51; PULSE 60; RESP 18; TEMP 36.3; O2SAT 97
[2022-03-18 12:23] VITALS: BP 135/62; PULSE 63; RESP 18; TEMP 36.1; O2SAT 96
== END 2022-03-18 13:50 | disposition home or self-care (01) ==
PROVIDERS: PCP Internal Medicine; Visit Provider Internal Medicine Gastroenterology
PROC: 0DJD8ZZ Inspection of Lower Intestinal Tract, Via Natural or Artificial Opening Endoscopic (ICD-10-PCS; CPT 45378; principal; 2022-03-18 10:10)
DX: K62.5 Hemorrhage of anus and rectum (principal); D12.7 Benign neoplasm of rectosigmoid junction; D12.3 Benign neoplasm of transverse colon; K64.9 Unspecified hemorrhoids; K57.30 Diverticulosis of large intestine without perforation or abscess without bleeding; K58.2 Mixed irritable bowel syndrome; I10 Essential (primary) hypertension; I48.19 Other persistent atrial fibrillation; J44.9 Chronic obstructive pulmonary disease, unspecified; Z79.01 Long term (current) use of anticoagulants; Z88.8 Allergy status to other drugs, medicaments and biological substances
CPT/HCPCS: 45385; 45380; 45381; 88305

== ENCOUNTER → 2022-04-10 09:41 | Outpatient (BNVA) | payer MEDICARE, SELFPAY | PROVIDERS: PCP Internal Medicine; Visit Provider Nurse Practitioner Family | DX: D12.3 Benign neoplasm of transverse colon (principal); D12.8 Benign neoplasm of rectum; K57.30 Diverticulosis of large intestine without perforation or abscess without bleeding; K64.9 Unspecified hemorrhoids; Z98.890 Other specified postprocedural states | CPT/HCPCS: 99212 ==

== ENCOUNTER → 2022-05-27 09:34 | Outpatient (BNVA) | payer MEDICARE, SELFPAY | PROVIDERS: PCP Internal Medicine; Referring Provider Internal Medicine; Visit Provider Internal Medicine | DX: I48.19 Other persistent atrial fibrillation (principal); R94.39 Abnormal result of other cardiovascular function study; I05.9 Rheumatic mitral valve disease, unspecified; I36.1 Nonrheumatic tricuspid (valve) insufficiency; I10 Essential (primary) hypertension; Z87.74 Personal history of (corrected) congenital malformations of heart and circulatory system; Z98.890 Other specified postprocedural states | CPT/HCPCS: 99212 ==

== ENCOUNTER 2022-07-22 08:05 | Day surgery (SDC) | payer MEDICARE, SELFPAY ==
[2022-07-17 10:18] VITALS: BMI 24.7
--- NOTE | 2022-07-19 10:55 | HO.ANESPROP2 ---
Documented by User: Inna Francisco NP 07/19/22 10:59 HPI - Anesthesia Eval Consult details Narrative: 82yo F for Sigmoidoscopy Flexible Cardiac optimized Eliquis for afib PMFSH Active Problems Active Problems: All Active Problems (Updated 05/10/22 @ 12:14 by Yamile Hearn MD) Vitamin D deficiency (Acute) Tubular adenoma (Acute) Tubulovillous adenoma (Acute) Status post atrial septal defect repair (Acute) Mitral annular calcification (Acute) Non-rheumatic tricuspid valve insufficiency (Acute) Essential hypertension (Acute) Rectal bleeding (Acute) Annual physical exam (Acute) Abnormal myocardial perfusion study (Acute) Status post bilateral carotid endarterectomy (Acute) Atrial septal defect (Acute) Persistent atrial fibrillation (Acute) COPD (chronic obstructive pulmonary disease) (Acute) Osteoporosis (Acute) Hypothyroid (Acute) Afib (Acute) Tibia fracture (Acute) Past Medical History Medical History (Updated 05/10/22 @ 12:14 by Yamile Hearn MD) Abnormal myocardial perfusion study Annual physical exam Anxiety Atrial septal defect Cancer, skin, squamous cell COPD (chronic obstructive pulmonary disease) High cholesterol Hypothyroid Osteoporosis Persistent atrial fibrillation Tibia fracture Tubular adenoma Tubulovillous adenoma Family History Family History Maternal Aunt Cervical cancer Family history of problems with anesthesia: No Surgical History Surgical History H/O colonoscopy History of esophagogastroduodenoscopy (EGD) Hx of bilateral cataract extraction Status post bilateral carotid endarterectomy Status post cardiac surgery History of Problems with Anesthesia: No Social History Social History Housing: House Are you a primary childcare center director to a significant other at home: No Alcohol intake: current Alcohol intake frequency: does not drink Patient Tobacco Use Status: Former Tobacco user Quit Date: 2014 Tobacco use type: Cigarette e-Cigarette/Vaping Use: Never Used Use of substances other than those prescribed or required for medical reasons: No Are you DNR?: No Advance Directives: Yes Advance Directives Information Provided: No Advance Directives on File: Yes Advance Directives Date on File: 04/04/20 Current occupational status: retired Cognitive needs: No Hearing needs: No Vision needs: Yes Meds Allergies Allergy/AdvReac Type Severity Reaction Status Date / Time atorvastatin AdvReac Intermediate Gastrointestinal Verified 07/22/22 08:42 Upset lovastatin AdvReac Intermediate Gastrointestinal Verified 07/22/22 08:42 Upset Home Medications Medication Instructions Recorded Confirmed Last Taken Type amlodipine 2.5 mg tablet 2.5 mg PO BEDTIME 07/22/22 07/22/22 07/21/22 History Exam Exam Date and Time: July 19, 2022 1055 Height,Weight and Vital Signs: Height 5 ft 3 in Weight 63.503 kg Narrative Narrative: ECHO 2020 Conclusions: - The left ventricular systolic function is normal.? The visually estimated ejection fraction is between 55-60%. ? - Moderate biatrial enlargement. ? - There is mild calcification of the aortic valve. ? - There is moderate mitral annular calcification.? There is mild mitral valve regurgitation.? - Mild pulmonary hypertension is present.? Per cardiac note: Prior myocardial perfusion imaging showed possible mild ischemia in the distal lateral wall and apex.? No angina.? Continue statins.? LDL is well controlled in the 60s. Assessment and Plan Assessment Anesthesia Assessment: Chart Reviewed Final Anesthetic Review Family History of Problems with Anesthesia: No History of Problems with Anesthesia: No Documented by User: Iraida Roberto MD 07/22/22 09:31 [facility] Past Medical History Medical History (Updated 05/10/22 @ 12:14 by Yamile Hearn MD) Abnormal myocardial perfusion study Annual physical exam Anxiety Atrial septal defect Cancer, skin, squamous cell COPD (chronic obstructive pulmonary disease) High cholesterol Hypothyroid Osteoporosis Persistent atrial fibrillation Tibia fracture Tubular adenoma Tubulovillous adenoma Family History Family History Maternal Aunt Cervical cancer Surgical History Surgical History H/O colonoscopy History of esophagogastroduodenoscopy (EGD) Hx of bilateral cataract extraction Status post bilateral carotid endarterectomy Status post cardiac surgery Social History Social History Housing: House Are you a primary childcare center director to a significant other at home: No Alcohol intake: current Alcohol intake frequency: does not drink Patient Tobacco Use Status: Former Tobacco user Quit Date: 2014 Tobacco use type: Cigarette e-Cigarette/Vaping Use: Never Used Use of substances other than those prescribed or required for medical reasons: No Are you DNR?: No Advance Directives: Yes Advance Directives Information Provided: No Advance Directives on File: Yes Advance Directives Date on File: 04/04/20 Current occupational status: retired Cognitive needs: No Hearing needs: No Vision needs: Yes Meds Allergies Allergy/AdvReac Type Severity Reaction Status Date / Time atorvastatin AdvReac Intermediate Gastrointestinal Verified 07/22/22 08:42 Upset lovastatin AdvReac Intermediate Gastrointestinal Verified 07/22/22 08:42 Upset Home Medications Medication Instructions Recorded Confirmed Last Taken Type amlodipine 2.5 mg tablet 2.5 mg PO BEDTIME 07/22/22 07/22/22 07/21/22 History Exam Airway Mallampati Class: II TM Dist: >3cm Neck ROM: Full Heart: rrr Lungs: cta Assessment and Plan Assessment Anesthesia Assessment: Anesthesia Plan Discussed Final Anesthetic Review NPO: Yes ASA Class: III Final Preanesthetic Review: No Changes in Pt Med Stat, Meds/Allgs Chart Reviewed and Consent Obtained/Reviewed Patient Risk: Intermediate Procedure Risk: Intermediate Anesthetic Plan Anesthetic Plan: MAC: Disposition: Standard PACU
[2022-07-22 08:46] VITALS: BP 166/69; PULSE 75; RESP 16; TEMP 36.5; O2SAT 96
--- NOTE | 2022-07-22 08:49 | P.HPSUR_ITS ---
Pre-Procedural Eval Section A Date of Service: 07/22/22 Changes since office visit: Yes Cold of Flu in the past 2 weeks The History & Physical has been completed within 30 days and I have reviewed it.: No Section B Chief Complaint: Personal history of colonic polyps Details of Present Illness: screening, fu of a large rectal polyp Relevant Family History (Specify if Yes): No Relevant Social History: Tobacco Use (former smoker) Present Medications: see Short Stay Collaborative assessment Medical History: Significant History (Atrial septal defect Cancer, skin, squamous cell COPD (chronic obstructive pulmonary disease) High cholesterol Hypothyroid Osteoporosis Persistent atrial fibrillation Tibia fracture Tubular adenoma Tubulovillous adenoma) History of Previous Operations: Relevant previous surgery/procedure and date(s) (H/O colonoscopy History of esophagogastroduodenoscopy (EGD) Hx of bilateral c ataract extraction Status post bilateral carotid endarterectomy Status post cardiac surgery) Allergies: Allergies Allergy/AdvReac Type Severity Reaction Status Date / Time atorvastatin AdvReac Intermediate Gastrointestinal Verified 07/22/22 08:42 Upset lovastatin AdvReac Intermediate Gastrointestinal Verified 07/22/22 08:42 Upset Review of Systems Sugical H&P ROS: Negative: Constitution, Cardiovascular, Respiratory and Gastrointestinal Exam Surgical H&P Exam: Normal: Heart, Normal: Lungs, Normal: Extremities and Normal: Abdomen Plan Diagnosis/Plan: Unchanged I have reviewed the history and physical and performed a pertinent physical examination on my patient. No changes have occurred unless specified. Time Spent With Patient Time: Total time managing care of this patient today ____ minutes.
[2022-07-22] MEDS: Sodium Phosphate,Mono-Dibasic 133 ML ENEMA PR (09:00)
[2022-07-22] MEDS: Lactated Ringers 1,000 ML 100 ML IVCONT (09:29)
--- NOTE | 2022-07-22 09:44 | W.PM.OPN ---
Operative Note Operative Note Date of Service: 07/22/22 Narrative: FLEXIBLE SIGMOIDOSCOPY TILL 10 CMS WITH SNARE POLYPECTOMY Pre-op diagnosis: Follow-up of a large flat rectal polyp Post-op diagnosis:? Rectal polyp, diverticulosis, hemorrhoids Endoscopist:? Александр Jackson MD Anesthesia:?MAC Consent: Indications for the procedure and potential complications of bleeding, perforation, reaction to medications and missed diagnosis were discussed with the patient and informed consent was obtained. Instrument: Olympus PCF H 190 L variable stiffness pediatric colonoscope Monitoring: Vital signs and clinical assessment, intermittent blood pressure monitoring, continuous EKG monitoring, Pulse oximetry and Carbon Dioxide monitoring were done throughout the procedure. Please see anesthesia flowsheet. Procedure: The patient was placed in the left lateral decubitis position and pre-procedure medications were administered. After a digital rectal examination of the ano-rectum, the video colonoscope was inserted into the rectum and advanced through the colon to 10 cms. It was not possible to advanced further due to solid stools blocking the lumen The colonoscope was slowly withdrawn in a retrograde panoramic fashion and the colon mucosa was carefully examined including a retroflexed view of the rectum. Findings and interventions are described below. Findings: Rectum: A 10-12 mm sessile polyp at site of past polypectomy at 5 cms - removed piecemeal with a cold snare Ano-rectum: Normal Colon preparation: Fair to poor Impression and Post Procedure Diagnosis: Colonoscopy Findings: Recurrent rectal polyp - removed with a cold snare Plan: Await pathology results Repeat Flexible Sigmoidoscopy with Colon prep - in 6 months (unable to use a hot snare or cautery today since pt did not take a colon prep before the procedure) Above findings were reviewed with the patient and colon polyps handout was given in the discharge area ADDENDUM: BIOPSIES SHOWED: Rectum, polypectomy:? Inflammatory polyp.
[2022-07-22 10:09] VITALS: BP 137/65; PULSE 77; RESP 16; TEMP 36.6; O2SAT 97
[2022-07-22 10:23] VITALS: BP 134/72; PULSE 79; RESP 16; TEMP 36.3; O2SAT 97
[2022-07-22 10:30] VITALS: BP 155/65; PULSE 64; RESP 16; TEMP 36.3; O2SAT 97
== END 2022-07-22 10:57 | disposition home or self-care (01) ==
PROVIDERS: PCP Internal Medicine; Visit Provider Internal Medicine Gastroenterology
PROC: 0DJD8ZZ Inspection of Lower Intestinal Tract, Via Natural or Artificial Opening Endoscopic (ICD-10-PCS; CPT 45330; principal; 2022-07-22 09:30)
DX: Z12.11 Encounter for screening for malignant neoplasm of colon (principal); Z86.010 Personal history of colon polyps; K62.1 Rectal polyp; K59.00 Constipation, unspecified; K58.9 Irritable bowel syndrome, unspecified; J44.9 Chronic obstructive pulmonary disease, unspecified; M81.0 Age-related osteoporosis without current pathological fracture; E03.9 Hypothyroidism, unspecified; E78.00 Pure hypercholesterolemia, unspecified; Z85.828 Personal history of other malignant neoplasm of skin; I48.19 Other persistent atrial fibrillation; Z79.01 Long term (current) use of anticoagulants; Z79.899 Other long term (current) drug therapy; Z88.8 Allergy status to other drugs, medicaments and biological substances; Z98.890 Other specified postprocedural states; Z87.891 Personal history of nicotine dependence
CPT/HCPCS: 45338; 88305

== ENCOUNTER 2022-08-27 11:14 | Outpatient (REF) | payer MEDICARE, SELFPAY ==
--- NOTE | ~2022-08-27 | XR_ITS ---
EXAMINATION: XR CHEST CLINICAL INFORMATION: Cough. COMPARISON: Chest 04/29/2018 TECHNIQUE: 2 views of the chest were obtained. FINDINGS: The lungs are well-expanded and clear of acute pneumonic process. There is platelike atelectasis left midlung. The heart size and pulmonary vascularity is normal. There are median sternotomy sutures from previous intervention. XR/XR chest 2V IMPRESSION: Platelike atelectasis left midlung.
[2022-08-27 14:29] LABS: Hematocrit 40.6 % (37.0-47.0); Mean Corpuscular Hemoglobin 29.8 pg (27.0-33.0); Mean Corpuscular Volume 93.1 fL (80.0-98.0); Mean Platelet Volume 10.2 fL (9.4-12.3); Platelet Count 229 X10*3/uL (160-400); Red Blood Count 4.36 X10*6/uL (4.20-5.50); Red Cell Distribution Width 13.6 % (11.0-16.0)
[2022-08-27 15:04] LABS: Alanine Aminotransferase 18 U/L (0-31); Albumin Level 4.2 g/dL (3.5-5.0); Alkaline Phosphatase 92 U/L (39-117); Anion Gap 14 (12-20); Aspartate Amino Transferase 31 U/L (5-31); Bilirubin Direct 0.2 mg/dL (0.0-0.5); Bilirubin Total 0.6 mg/dL (0.0-1.0); Blood Urea Nitrogen 14 mg/dL (9-16); Calcium 9.4 mg/dL (8.4-10.2); Carbon Dioxide 24 mmol/L (22-29); Chloride 108 mmol/L (96-108); Estimated Glomerular Filt Rate > 60; Glucose Random 82 mg/dL (60-115); Potassium 4.4 mmol/L (3.3-5.1); Sodium 142 mmol/L (135-145); Total Protein 6.7 g/dL (6.5-8.0)
[2022-08-27 15:06] LABS: Erythrocyte Sedimentation Rate 14 MM/HR (0-20)
[2022-08-27 15:16] LABS: Thyroid Stimulating Hormone 1.61 uIU/mL (0.32-4.0)
== END 2022-08-27 11:15 | disposition home or self-care (01) ==
LOC: HO.HMGCX 11:14
PROVIDERS: PCP Internal Medicine; Visit Provider Internal Medicine
DX: R05.9 Cough, unspecified (principal); R59.1 Generalized enlarged lymph nodes
CPT/HCPCS: 36415; 71046; 80048; 80076; 84443; 85027; 85652

== ENCOUNTER 2022-08-28 10:16 | Outpatient (REF) | payer MEDICARE, SELFPAY ==
--- NOTE | ~2022-08-28 | US_ITS ---
EXAMINATION: US SOFT TISSUE NECK CLINICAL INFORMATION: Pain and swelling left supraclavicular fossa. Generalized pain in neck but palpable abnormalities are new. COMPARISON: None available. TECHNIQUE: Targeted ultrasound evaluation of the left supraclavicular region approximately 3 cm superior to the clavicle.. FINDINGS: Multiple hypoechoic structures are seen within the region of palpable abnormality in the supraclavicular region of the left neck. Some have central fat however others do not. These have the appearance of possible abnormal lymph nodes. There is some distal sound enhancement present and possibly a complex fluid collection could also be considered adjacent to some abnormal lymph nodes. The largest abnormal lesion which may represent a lymph node measures approximately 1.8 x 1.2 x 1.5 cm in size with somewhat irregular margin and what would be cortical thickening if this does represent a lymph node. US/US soft tiss head and/or neck IMPRESSION: Hypoechoic structures likely representing abnormal lymph nodes about the left supraclavicular region in region of lump. Either short-term follow-up or ultrasound-guided biopsy could be considered.
== END 2022-08-28 10:17 | disposition home or self-care (01) ==
LOC: HO.HMGCX 10:16
PROVIDERS: PCP Internal Medicine; Visit Provider Internal Medicine
DX: R59.1 Generalized enlarged lymph nodes (principal)
CPT/HCPCS: 76536

== ENCOUNTER → 2022-09-19 12:52 | Outpatient (BNV) | payer MEDICARE, SELFPAY | PROVIDERS: PCP Internal Medicine; Visit Provider Internal Medicine | DX: R59.1 Generalized enlarged lymph nodes (principal); R21 Rash and other nonspecific skin eruption | CPT/HCPCS: 99204; 99212; 99213; 99214; G2211 ==

== ENCOUNTER 2022-09-25 13:17 | Outpatient (REF) | payer MEDICARE, SELFPAY ==
--- NOTE | ~2022-09-25 | CT_ITS ---
EXAMINATION: CT CHEST WITH CONTRAST CLINICAL INFORMATION: Lymphadenopathy, past smoker COMPARISON: 11/01/2014 TECHNIQUE: Multidetector volumetric CT imaging of the chest was obtained after the administration of 50 mL of Omnipaque 350 intravenous contrast without immediate adverse reactions. Axial MIP volume rendering provided. Sagittal and coronal reformatted images were obtained. This CT examination was performed using dose optimization techniques as appropriate, variously including the following: *Automated exposure control *Adjustment of mA and/or kV according to patient size (this includes techniques or standardized protocols for targeted exams where dose is matched to indication/reason for exam; i.e. 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 Aortic calcifications. Median sternotomy wires. LUNGS: 3.2 x 2.2 x 3.3 cm spiculated mass is identified in the medial right upper lobe. Spiculations extend to the medial pleural surface. Trachea and bronchi are patent. There is underlying hyperinflation with centrilobular emphysema. There is scattered atelectasis, most prominent in the lingula were 6 mm lung nodules are questioned on 4:39 and 6:23. 3 mm RML nodule, 4:40. MEDIASTINUM: Thyroid is unremarkable. Small hiatal hernia. Multiple abnormal appearing left supraclavicular lymph nodes are identified, largest 1.7 cm. Multiple mediastinal lymph nodes are seen, along largest in the pretracheal region in the range of 2.1 cm. There appears to be right hilar lymphadenopathy measuring 2 x 2.1 x 1.8 cm. HEART AND GREAT VESSELS: Heart is enlarged. No pericardial effusion. Degree of coronary calcifications: Severe. Aorta is nonaneurysmal with atherosclerotic calcifications. Pulmonary arteries are enlarged, main pulmonary artery measuring 4.2 cm. There is limited evaluation of the segmental pulmonary arterial branches due to phase of injection but no large central filling defects are identified to suggest pulmonary thromboembolism. PLEURA: There is no pleural effusion. No pleural mass or thickening. AXILLA: No lymphadenopathy. UPPER ABDOMEN: Renal cysts. Hypertrophic left adrenal gland unchanged from 2015. No upper abdominal pathology recognized. OSSEOUS STRUCTURES: No definite osseous lesions. CT/CT chest w IV con IMPRESSION: 3.3 cm right upper lobe mass with left supraclavicular and mediastinal lymphadenopathy highly suspicious for primary bronchogenic carcinoma. Potential lung nodules as described. At the time of this dictation, PSA service contacted to alert referring physician of findings.
--- NOTE | ~2022-09-25 | CT_ITS ---
EXAMINATION: CT SOFT TISSUE NECK WITH CONTRAST CLINICAL INFORMATION: Past smoker. Lymphadenopathy. COMPARISON: CT chest acquired at 09/25/2022. TECHNIQUE: Following intravenous administration of 65 mL of Omnipaque 350 contrast, helical imaging was performed in the axial plane with generation of coronal and sagittal reformatted images. This CT examination was performed using dose optimization techniques as appropriate, variously including the following: *Automated exposure control *Adjustment of mA and/or kV according to patient size (this includes techniques or standardized protocols for targeted exams where dose is matched to indication/reason for exam; i.e. extremities or head) *Use of iterative reconstruction technique DLP: 472 mGy-cm FINDINGS: There are peripherally enhancing centrally necrotic lymph nodes in the left supraclavicular fossa with a dominant node measuring approximately 1.7 cm in long axis dimension in the axial plane. There are smaller peripherally-enhancing and suspected centrally necrotic lymph nodes near the thoracic inlet in the carotid spaces bilaterally, measuring up to 0.8 cm in diameter. No additional cervical adenopathy is visible. A large spiculated mass measuring up to 3 cm in diameter is present in the right upper lobe with partially visualized mediastinal adenopathy, further assessed on the patient's dedicated chest CT exam. The pulmonary artery is dilated, measuring up to 4.2 cm in transverse dimension. Aside from scattered atherosclerotic wall calcifications, the carotid vasculature opacifies normally. The submandibular and parotid glands are homogeneous in attenuation. No contour abnormality or pathologic enhancement seen within the oral cavity, pharyngeal mucosal space, or larynx. The patient has had prior lens extractions bilaterally. The thyroid gland is mildly heterogeneous in attenuation from underlying subcentimeter nodules. No acute osseous abnormality is visible. Multilevel facet arthropathy noted. There is a rightward curvature of the cervical spine as well. The imaged paranasal sinuses and mastoid air cells are clear. The imaged portions of the brain demonstrate no acute abnormality. CT/CT soft tissue neck w IV con IMPRESSION: Peripherally-enhancing and centrally necrotic supraclavicular adenopathy, left greater than right side, with additional small pathologic lymph nodes in the carotid spaces at the thoracic inlet. Partially visualized 3 cm right upper lobe lung mass.
[2022-09-25] MEDS: iohexoL 350 MG/ML 100 ML INFUS..BTL 65 ML IV (13:57)
== END 2022-09-25 13:18 | disposition home or self-care (01) ==
LOC: HO.CT 13:17
PROVIDERS: PCP Internal Medicine; Visit Provider Internal Medicine
DX: R59.1 Generalized enlarged lymph nodes (principal)
CPT/HCPCS: 70491; 71260; Q9967

== ENCOUNTER 2022-10-04 13:22 | Outpatient (REF) | payer MEDICARE, SELFPAY ==
--- NOTE | ~2022-10-04 | US_ITS ---
EXAMINATION: Ultrasound-guided lymph node biopsy CLINICAL INFORMATION: Enlarged left supraclavicular lymph nodes COMPARISON: Previous ultrasound of the soft tissues of the neck 08/28/2022 TECHNIQUE: Procedure and risks and benefits including bleeding and infection were discussed with the patient and informed consent was obtained. The left neck was prepped and draped in the usual sterile fashion. The skin and soft tissues were anesthetized with 1% lidocaine plain. Using ultrasound guidance and a coaxial system, access to a left supraclavicular lymph node was obtained. 7 20-gauge core biopsies were performed and placed in formalin and flow cytometry solution. FINDINGS: There are abnormal appearing left cervical lymph nodes. Largest lymph node measuring 2.4 x 1.4 x 1.7 cm was targeted for ultrasound-guided core biopsy. US/US biopsy lymph node IMPRESSION: Left cervical supraclavicular lymph node biopsy.
[2022-10-04] MEDS: Lidocaine HCl 1 % MPF 5 ML VIAL SUBCUT (16:08)
== END 2022-10-04 13:23 | disposition home or self-care (01) ==
LOC: HO.US 13:22
PROVIDERS: PCP Internal Medicine; Visit Provider Internal Medicine
DX: R59.1 Generalized enlarged lymph nodes (principal)
CPT/HCPCS: 36415; 38505; 76942; 88184; 88185; 88305; 88341; 88342

== ENCOUNTER 2022-11-05 07:56 | Outpatient (REF) | payer MEDICARE, SELFPAY ==
--- NOTE | ~2022-11-05 | PE_ITS ---
EXAMINATION: Fluorine-18 FDG PET/CT Scan CLINICAL INDICATION: Initial treatment management. Staging lung cancer. PROCEDURE: 60 minutes following the intravenous administration of 17.1 mCi of fluorine 18 FDG, images from the base of the skull to the mid thighs were obtained using a combined PET/CT scanner with CT scan based attenuation correction. No intravenous contrast was administered. Transverse, coronal, sagittal, and volume reconstruction projections were obtained. The patient's blood glucose as determined by a finger stick, was 85 mg/dl immediately prior to injection. The radiotracer was injected intravenously through the right antecubital superficial vein, without any complications. Total CT exam dose-length product 510.52 mGy-cm * These CT images were obtained using dose optimization techniques as appropriate, variously including the following: Automated exposure control * Adjustment of mA and/or kV according to patient size (this includes techniques or standardized protocols for targeted exams where dose is matched to indication/reason for exam; i.e. extremities or head) * Use of iterative reconstruction technique COMPARISON: CT of the chest and soft tissue neck done on 09/25/2022 and ultrasound-guided left supraclavicular lymph node biopsy done on 10/04/2022. FINDINGS: NECK AND VISUALIZED HEAD: Previously biopsied 2.2 x 1.1 cm metastatic left supraclavicular lymph node shows FDG avidity with SUV max of 5.8 (38/223). THORAX: The index spiculated presumed primary malignancy at superior-posterior aspect of the right upper lobe currently measures approximately 2.1 x 1.9 cm with SUV max of 10.6 (57/223). There are no other additional suspicious FDG avid lung nodule identified in either side. Linear pleuroparenchymal opacities within the lingular segment of the left upper lobe likely represent hypoventilatory, atelectatic changes, infiltrate or pleural parenchymal scar or combination thereof. There are multiple FDG avid bilateral paratracheal, aortopulmonary, subcarinal and right perihilar lymph nodes present the most intense FDG avid lymph node is noted around the right hilum with SUV max of 6.4 (77/223). ABDOMEN AND PELVIS: No FDG avid focal liver or adrenal or splenic disease. The gallbladder, biliary tree, pancreas appear unremarkable. Incidental note is made of a unilocular photopenic large cortical renal cyst at the inferior anterior cortex of the right kidney. Colonic diverticulosis. No FDG avid retroperitoneal, mesenteric, pelvic and/or groin lymphadenopathy. MUSCULOSKELETAL: Solitary focal FDG avidity associated with subtle underlying subtle sclerosis involving the posterior superior aspect of L1 vertebral body with SUV max of 6.0 (119/223), highly suspicious for metastatic disease. Follow-up MRI of the spine with and without intravenous contrast may be considered for further full detail evaluation, if clinically appropriate. VASCULAR: Calcific atherosclerotic disease of the aorta and its branches including coronary artery calcifications are noted. No evidence of aneurysm. SUV max OF MEDIASTINAL BLOOD POOL: 2.6 SUV max OF LIVER: 3.0 PET/PET CT fusion skull to thigh IMPRESSION: 1. Previously biopsied 2.2 x 1.1 cm metastatic left supraclavicular lymph node shows FDG avidity with SUV max of 5.8. No additional FDG avid cervical lymphadenopathy is present. 2. The index spiculated presumed primary malignancy at the right lung apex currently measures 2.1 x 1.9 cm with SUV max of 10.6. Linear pleural parenchymal opacity within the lingular segment of the left upper lobe likely represent hypoventilatory, atelectatic changes, infiltrate or pleural parenchymal scar or combination thereof. 3. There are multiple FDG avid bilateral paratracheal, aortopulmonary, subcarinal and right perihilar lymph nodes present with the most intense FDG avid lymph node is seen at the right hilum with SUV max of 6.4. 4. No FDG avid focal liver or adrenal or splenic disease. 5. Solitary focal FDG avidity associated with subtle underlying sclerosis at posterior superior aspect of L1 vertebral body with SUV max of 6.0 (119/223), highly suspicious for metastatic disease. Follow-up MRI of the spine with and without intravenous contrast may be considered for further full detail evaluation, if clinically appropriate.
== END 2022-11-05 07:57 | disposition home or self-care (01) ==
LOC: HO.PET 07:56
PROVIDERS: PCP Internal Medicine; Visit Provider Internal Medicine
DX: Z13.89 Encounter for screening for other disorder (principal)

== ENCOUNTER 2022-11-07 08:32 | Outpatient (REF) | payer MEDICARE, SELFPAY ==
[2022-11-07 11:19] LABS: MANUAL DIFF FLAG NO
[2022-11-07 11:51] LABS: Basophils Percent Auto 0.5 % (0-2); Eosinophils Absolute Auto 0.1 X10*3/uL (0.0-0.4); Eosinophils Percent Auto 1.4 % (0-4); Hematocrit 43.2 % (37.0-47.0); Hemoglobin 13.6 g/dl (12.0-16.0); Imm Gran Abs Auto 0.01 X10*3/uL (0.00-0.03); Imm Gran Pct Auto 0.2 % (0.0-0.4); Lymphocytes Absolute Auto 1.6 X10*3/uL (1.2-4.9); Lymphocytes Percent Auto 28.6 % (20-40); Mean Corpuscular HGB Conc 31.5 g/dl (31.0-35.0); Mean Corpuscular Hemoglobin 29.2 pg (27.0-33.0); Mean Corpuscular Volume 92.7 fL (80.0-98.0); Mean Platelet Volume 10.7 fL (9.4-12.3); Monocytes Absolute Auto 0.7 X10*3/uL (0.1-1.2); Monocytes Percent Auto 11.9 % (2-11); Neutrophils Absolute Auto 3.2 x10*3/uL (2.0-8.3); Neutrophils Percent Auto 57.4 % (45-73); Platelet Count 228 X10*3/uL (160-400); Red Blood Count 4.66 X10*6/uL (4.20-5.50); Red Cell Distribution Width 13.3 % (11.0-16.0); White Blood Count 5.5 X10*3/uL (4.8-10.8)
[2022-11-07 14:23] LABS: Alanine Aminotransferase 17 U/L (0-31); Albumin Level 4.4 g/dL (3.5-5.0); Alkaline Phosphatase 93 U/L (39-117); Anion Gap 13 (12-20); Aspartate Amino Transferase 30 U/L (5-31); Bilirubin Total 0.5 mg/dL (0.0-1.0); Blood Urea Nitrogen 16 mg/dL (9-16); Carbon Dioxide 29 mmol/L (22-29); Chloride 103 mmol/L (96-108); Cholesterol 120 mg/dL; Estimated Glomerular Filt Rate > 60; Glucose Fasting 87 mg/dL (60-99); HDL Cholesterol 53 mg/dL; LDL Cholesterol Calculated 60 mg/dl; Sodium 141 mmol/L (135-145); TSH reflex Free T4 2.64 uIU/mL (0.32-4.0); Total Protein 7.3 g/dL (6.5-8.0); Triglycerides 37 mg/dL; Vitamin D 25-OH Total 33.4 ng/mL (>30)
== END 2022-11-07 08:33 | disposition home or self-care (01) ==
LOC: HO.HMGCLDS 08:32
PROVIDERS: PCP Internal Medicine; Visit Provider Internal Medicine
DX: I10 Essential (primary) hypertension (principal); I48.19 Other persistent atrial fibrillation; E55.9 Vitamin D deficiency, unspecified; E03.9 Hypothyroidism, unspecified
CPT/HCPCS: 36415; 80053; 80061; 82306; 84443; 85025

== ENCOUNTER 2022-11-11 09:37 | Outpatient (AMB) | payer MEDICARE, SELFPAY ==
[2022-11-11 09:38] VITALS: BP 135/60; PULSE 82; O2SAT 97
--- NOTE | 2022-11-11 09:38 | MHC.PC.OV ---
Vital Signs 11/11/22 09:38 Height 5 ft 4 in BMI Reason not done Patient refused/unable BP 135/60 Blood Pressure Location Rt brachial Position Sitting Pulse 82 Pulse Source Pulse Oximeter Pulse Oximetry (%) 97 Oxygen Delivery Method Room Air Intake Visit Reasons: 6 month follow up Allergies atorvastatin Adverse Reaction (Intermediate, Verified 11/11/22 09:38) Gastrointestinal Upset lovastatin Adverse Reaction (Intermediate, Verified 11/11/22 09:38) Gastrointestinal Upset Medication List - Last Reconciled 11/11/22 by Yamile Hearn MD albuterol sulfate 90 mcg/actuation 2 puffs inhalation Q6H PRN amlodipine 2.5 mg PO BEDTIME apixaban (Eliquis) 5 mg PO BID fluoxetine 10 mg PO DAILY levothyroxine 50 mcg PO DAILY lorazepam 0.5 mg PO DAILY PRN rosuvastatin 40 mg PO DAILY umeclidinium-vilanterol 62.5-25 mcg/actuation (Anoro Ellipta) 1 ea inhalation DAILY Tobacco use date assessed: 11/11/22 Fall risk assessment: No Falls in past year Last assessed Fall Risk: 11/11/22 Dental Screening Dental Screen Date: 11/11/22 Did you have a dental visit in the last 12 months?: No Did you have a dental problem in the last 6 months where you did not have access to dental care?: No Was dental information given to patient?: No HPI 6 month follow up HPI Details Pt presents for the follow-up of paroxysmal AFib, hypertension hyperlipidemia. Patient was diagnosed with metastatic adeno CA of the lung follows up with Oncology for the treatment to be started. Patient is feeling well. She denies any shortness of breath cough weight loss or excessive fatigue. She lives alone, taking care of her house [facility] Medical History (Updated 11/11/22 @ 10:12 by Yamile Hearn MD) Abnormal myocardial perfusion study Annual physical exam Anxiety Atrial septal defect Cancer, skin, squamous cell COPD (chronic obstructive pulmonary disease) High cholesterol Hypothyroid Osteoporosis Persistent atrial fibrillation Tibia fracture Tubular adenoma Tubulovillous adenoma Surgical History H/O colonoscopy History of esophagogastroduodenoscopy (EGD) Hx of bilateral cataract extraction Status post bilateral carotid endarterectomy Status post cardiac surgery Family History Maternal Aunt Cervical cancer Social History Household Members: Significant Other Housing: House Are you a primary care program resident to a significant other at home: No Alcohol intake: current Alcohol intake frequency: does not drink Patient Tobacco Use Status: Former Tobacco user Quit Date: 2014 Tobacco use type: Cigarette e-Cigarette/Vaping Use: Never Used Advance Directives Date on File: 04/04/20 service: No Current occupational status: retired Cognitive needs: No Hearing needs: No Vision needs: Yes Questionnaire Thrive Questionnaire Date Thrive assessed: 06/01/21 AUDIT C Alcohol Use Questionnaire (AUDIT-C) 1. How often do you have a drink containing alcohol?: Never 3. How often do you have six or more drinks on one occasion?: Never Total Score: 0 Score Reviewed/Action Taken: Yes SHADY-7 AMB Questionnaire SHADY-7 Date SHADY - 7 assessed: 11/09/21 Source: Developed by Drs. Devang Jordan, Terra Arias, Irvin Gonzalez and colleagues, with an educational kristel from [email or web address]. Review of Systems Const All systems reviewed & are unremarkable except as noted in HPI and below Reports no additional complaints Eyes Reports no additional complaints ENT Reports no additional complaints Card Reports no additional complaints Resp Reports no additional complaints GI Reports no additional complaints Reports no additional complaints Physical exam (Primary Care) Vital Signs: Last Vital Signs Pulse 82 11/11/22 09:38 BP 148/60 H 11/11/22 09:38 Pulse Ox 97 11/11/22 09:38 Oxygen Delivery Method Room Air 11/11/22 09:38 Tobacco/Smoking Status: Tobacco use Status Tobacco use date assessed 11/11/22 11/11/22 09:41 Patient Tobacco Use Status Former Tobacco user 11/11/22 09:41 Tobacco use type Cigarette 11/11/22 09:41 e-Cigarette/Vaping Use Never Used 11/11/22 09:41 Thrive Assessment: Date of Thrive Assessment Date Thrive assessed 06/01/21 11/11/22 09:41 Const General: no acute distress HENMT Head: Yes normal to inspection Face and sinus: Yes normal facial exam Mouth: Normal oral and palatal mucosa present Throat: Yes posterior oropharynx normal Resp Effort & Inspection: normal respiratory effort Auscultation: diminished lung sounds Cardio Rhythm: regular rhythm Heart sounds: S1 normal heart sound present and S2 normal heart sound present GI Inspection: Yes normal to inspection Palpation (GI): Soft to palpation Percussion: Yes normal to percussion Auscultation: normal bowel sounds Assessment and Plan Assessment & Plan (1) Non-small cell cancer of right lung: Comment: PET scan 10/11 showed mets to cervical, mediastinal LNs, ? verterbral body L1, f/u Code(s): C34.91 - Malignant neoplasm of unspecified part of right bronchus or lung Plan: Follow-up with oncology (2) Essential hypertension: Code(s): I10 - Essential (primary) hypertension Plan: Continue amlodipine and low-sodium diet follow-up in 2 month (3) Persistent atrial fibrillation: Comment: sees Dr. Coreas Code(s): I48.19 - Other persistent atrial fibrillation Plan: Continue Eliquis (4) COPD (chronic obstructive pulmonary disease): Code(s): J44.9 - Chronic obstructive pulmonary disease, unspecified Plan: Continue Anoro (5) Hypothyroid: Code(s): E03.9 - Hypothyroidism, unspecified Plan: Continue levothyroxine Medications: Discontinued amlodipine 2.5 mg PO DAILY 90 tabs 3RF Coding Level of Care Code Est Pt Level 4 (85941) Diagnoses Non-small cell cancer of right lung C34.91 Essential hypertension I10 Persistent atrial fibrillation I48.19 COPD (chronic obstructive pulmonary disease) J44.9 Hypothyroid E03.9
== END 2022-11-11 10:14 | disposition home or self-care (01) ==
PROVIDERS: PCP Internal Medicine; Visit Provider Internal Medicine
DX: I10 Essential (primary) hypertension (principal); C34.91 Malignant neoplasm of unspecified part of right bronchus or lung; I48.19 Other persistent atrial fibrillation; J44.9 Chronic obstructive pulmonary disease, unspecified; E03.9 Hypothyroidism, unspecified
CPT/HCPCS: 99214

== ENCOUNTER → 2022-11-21 09:40 | Outpatient (REF) | payer MEDICARE, SELFPAY ==
--- NOTE | 2022-11-21 09:44 | HM_ITS ---
* Total monitoring time 2 days. * Underlying rhythm is atrial fibrillation. [place] 100%. * Occasional ventricular ectopy. [place] of 0.5%. Short runs noted. Longest episode labeled as 15 beats. Overall, nothing sustained. * No significant pauses or AV blocks. * No patient markers or events in diary. MTDD
--- NOTE | 2022-11-21 09:44 | CA_ITS ---
Transthoracic Echocardiogram Patient (Last, First, Middle): Aneta Broussard A Gender: Female Date of : 1940 Age: 82 Procedure Date: 11/21/2022 Procedure Type: Transthoracic Echocardiogram Location: OP Height: 162.56 cm Weight: 65.77 kg BSA: 1.71 m2 Heart Rate: bpm BP: 160 / 72 mmHg Communicable Disease Specialist: TO Referring MD: Juarez Coreas MD Symptoms: I48.19 - Other persistent atrial fibrillation Study Quality: Adequate ECG Rhythm: Atrial Fibrillation Conclusions: - The left ventricular systolic function is mildly decreased. The calculated ejection fraction is 52% by biplane method. - Severe biatrial enlargement. - There is mild calcification of the aortic valve. - There is mild mitral annular calcification. - Mild pulmonary hypertension is present. Findings Left Ventricle Normal left ventricular cavity size. There is normal left ventricular wall thickness. The left ventricular systolic function is mildly decreased. The calculated ejection fraction is 52% by biplane method. There is no evidence of regional wall motion abnormalities. Diastolic function is indeterminate on the basis of available data. Right Ventricle Normal right ventricular cavity size. There is mildly decreased right ventricular systolic function. Atria Severe biatrial enlargement. Aortic Valve There is a normal trileaflet aortic valve. There is mild calcification of the aortic valve. There is no aortic valve stenosis. There is no aortic valve regurgitation. Mitral Valve There is mild mitral annular calcification. There is trace mitral valve regurgitation. There is no mitral valve stenosis. Pulmonic Valve There is trace pulmonic valve regurgitation. Tricuspid Valve Normal tricuspid valve structure. There is mild tricuspid valve regurgitation. Mild pulmonary hypertension is present. Great Vessels The asc aorta is normal in size. Venous The inferior vena cava is dilated and collapses greater than 50% with inspiration. Pericardium/Pleural There is no evidence of pericardial effusion. Prior Study Comparison Changes noted compared to prior study dated: 02/13/2021. Slight decrease in LVEF. Measurements 2D Linear Measurements IVSd: 0.90 0.6-0.9/0.6-1.0 cm LVIDd: 4.80 3.9-5.3/4.2-5.9 cm LVIDd Index: 2.81 2.4-3.2/2.2-3.1 cm/m2 LVIDs: 3.40 2.0-3.6 cm LVPWd: 0.90 0.7-1.1 cm LA Diam: 5.00 2.7-3.8/3.0-4.0 cm LAIDs Index: 2.92 1.5-2.3 cm/m2 LV Mass: 183.98 67-162/88-224 g LV Mass Index: 107.59 43-95/49-115 g/m2 LVOT Diam: 2.00 3.0+(-)1.3 cm 2D Systolic Function EF 4C: 51.20 >55% EF 2C: 54.60 >55% EF BiP: 52.20 >55% Mitral Valve MV Pk E: 1.02 MV Decel Time: 198.00 E'Lateral: 11.60 E'Medial: 8.05 E/E' Med: 12.70 E/E' Lat: 8.80 PHT: 58.00 MVA PHT: 3.79 Decel [place]: 5.18 Aortic Valve AoV Pk [place]: 1.52 AoV Pk Grad: 9.00 LVOT LVOT Pk [place]: 0.92 LVOT Mn [place]: 0.59 LVOT VTI: 0.19 LVOT Pk Grad: 3.00 LVOT Mn Grad: 2.00 LVOT Diam: 2.00 LVOT Area: 3.14 Diastolic Function MV Pk E: 1.02 E'Medial: 8.05 E/E' Med: 12.70 E' Laterial: 11.60 E/E' Lat: 8.80 Right Ventricle TAPSE (mm): 14.90 TVS' Forrest: 10.60 Tricuspid Valve TR Pk [place]: 3.24 TR Pk Grad: 42.00 RA Press: 8.00 RVSP: 50.00 Great Vessels Aorta Sinus of Valsalva: 3.10 2.0-3.[address] [place]: 2.00 1.7-3.4 cm Ao Asc: 3.00 2.1-3.4 cm Updated in Other Vendor System with Status of Final Juarez Coreas MD electronically signed on 11/23/2022 11:17:11 AM with status of Final
== END ==
LOC: HO.CARD 09:40
PROVIDERS: PCP Internal Medicine; Visit Provider Internal Medicine
DX: I48.19 Other persistent atrial fibrillation (principal); Z87.74 Personal history of (corrected) congenital malformations of heart and circulatory system
CPT/HCPCS: 93242; 93306

== ENCOUNTER → 2022-11-21 09:44 | Outpatient (BNV) | payer MEDICARE, SELFPAY | PROVIDERS: PCP Internal Medicine; Visit Provider Internal Medicine | DX: I48.91 Unspecified atrial fibrillation (principal) | CPT/HCPCS: 93244; 93306 ==

== ENCOUNTER 2022-11-29 12:41 | Outpatient (REF) | payer MEDICARE, SELFPAY ==
--- NOTE | ~2022-11-29 | MR_ITS ---
EXAMINATION: MR BRAIN WITHOUT AND WITH CONTRAST CLINICAL INFORMATION: Staging lung carcinoma. COMPARISON: CT scan of the head 05/29/2015. PET CT scan 10/06/2022. TECHNIQUE: Multiplanar, multisequence MRI of the brain was obtained before and after the intravenous administration of 6.5 mL Gadavist. FINDINGS: No diffusion abnormalities are identified to suggest an acute or subacute infarct. No mass effect or midline shift is seen. There is commensurate prominence of the ventricles and sulci consistent with diffuse volume loss. There are extensive areas of increased T2 and FLAIR signal in the periventricular white matter, and in the olga which are most consistent with chronic microvascular ischemic changes. There are chronic infarcts in the bilateral basal ganglia, and there are acute infarcts in the centra semiovale and basal ganglia bilaterally. No extra-axial fluid collections are seen. The brainstem appears normal. On postcontrast imaging, there is no abnormal parenchymal or leptomeningeal enhancement. No pathologic magnetic susceptibility artifact is identified on the gradient refocused acquisition. The cerebellar tonsils have normal contour and position, and the craniocervical junction appears normal. Marrow signal and midline structures are normal. The major intracranial flow-voids at the level of the [place] are preserved. The dural venous sinus flow-voids are maintained. There have been bilateral lens extractions. There is trace right mastoid air cell fluid. There is minimal fluid signal in the bilateral pneumatized petrous apices. There is trace fluid in the dependent left sphenoid sinus. MR/MR head/brain wo/w con IMPRESSION: 1. There are no acute bleeds or territorial infarcts. No masses are demonstrated. There is no abnormal enhancement. 2. There are chronic microvascular ischemic changes and chronic lacunar infarcts. There is diffuse volume loss.
[2022-11-29] MEDS: gadobutroL 7.5 ML VIAL IVPUSH (13:47)
== END 2022-11-29 12:42 | disposition home or self-care (01) ==
LOC: HO.MRI 12:41
PROVIDERS: PCP Internal Medicine; Visit Provider Internal Medicine
DX: C34.90 Malignant neoplasm of unspecified part of unspecified bronchus or lung (principal)
CPT/HCPCS: 70553; A9585

== ENCOUNTER 2022-12-02 14:42 | Outpatient (REF) | payer MEDICARE, SELFPAY ==
--- NOTE | ~2022-12-02 | US_ITS ---
EXAMINATION: Ultrasound-guided lymph node biopsy CLINICAL INFORMATION: Lung cancer. Need additional specimen for genetic testing. COMPARISON: Previous exam September TECHNIQUE: Procedure and risks and benefits including bleeding and infection were discussed with the patient and informed consent was obtained. The patient was positioned in the right decubitus position. The left supraclavicular region was prepped and draped in the usual sterile fashion. The skin and soft tissues were anesthetized with 1% lidocaine plain. Using ultrasound guidance and a coaxial system, access to the largest left supraclavicular lymph node was obtained. 9 18-gauge core biopsies were obtained. Specimens were put in formalin. FINDINGS: There is a 1.9 x 0.9 x 1.3 cm abnormal-appearing left supraclavicular lymph node that was targeted for core biopsy. US/US biopsy lymph node IMPRESSION: Ultrasound-guided left supraclavicular lymph node core biopsy.
== END 2022-12-02 14:43 | disposition home or self-care (01) ==
LOC: HO.US 14:42
PROVIDERS: PCP Internal Medicine; Visit Provider Internal Medicine
DX: C34.91 Malignant neoplasm of unspecified part of right bronchus or lung (principal); R59.1 Generalized enlarged lymph nodes
CPT/HCPCS: 38505; 76942; 88305; 88342

== ENCOUNTER → 2022-12-02 14:44 | Outpatient (BNV) | payer MEDICARE, SELFPAY | PROVIDERS: PCP Internal Medicine; Visit Provider Radiology Diagnostic Radiology | DX: C34.91 Malignant neoplasm of unspecified part of right bronchus or lung (principal) | CPT/HCPCS: 38505; 76942 ==

== ENCOUNTER 2022-12-19 09:07 | Outpatient (AMB) | payer MEDICARE, SELFPAY ==
--- NOTE | 2022-12-19 09:13 | A.OFFVIS_ITS ---
Intake Vital Signs 12/19/22 09:14 Height 5 ft 4 in BMI Reason not done Patient refused/unable BP 158/64 H Blood Pressure Location Lt brachial Position Sitting Pulse 83 Intake Visit Reasons: 6 mth fu after holter/echo Intake Note: 6 month follow up Career Manager Required: No Accompanied by: Self / Same As Patient Allergies atorvastatin Adverse Reaction (Intermediate, Verified 12/19/22 09:16) Gastrointestinal Upset lovastatin Adverse Reaction (Intermediate, Verified 12/19/22 09:16) Gastrointestinal Upset Medication List - Last Reconciled 12/19/22 by Juarez Coreas MD albuterol sulfate 90 mcg/actuation 2 puffs inhalation Q6H PRN amlodipine 2.5 mg PO BEDTIME apixaban (Eliquis) 5 mg PO BID fluoxetine 10 mg PO DAILY levothyroxine 50 mcg PO DAILY lorazepam 0.5 mg PO DAILY PRN rosuvastatin 40 mg PO DAILY umeclidinium-vilanterol 62.5-25 mcg/actuation (Anoro Ellipta) 1 ea inhalation DAILY HPI HPI Comments History of Present Illness Details Aneta returns for follow-up regarding atrial fibrillation, remote history of ASD repair. No known coronary disease, myocardial infarction. There is a history of bilateral carotid endarterectomy. Apparently, she has now been diagnosed with lung cancer and sees Oncology. From cardiac, no specific complaints. Blood pressure is continue to be on the higher side. She is not doing home blood pressures. [facility] Medical History (Updated 12/19/22 @ 10:00 by Juarez Coreas MD) Abnormal myocardial perfusion study Annual physical exam Anxiety Atrial septal defect Cancer, skin, squamous cell COPD (chronic obstructive pulmonary disease) High cholesterol Hypothyroid Osteoporosis Persistent atrial fibrillation Tibia fracture Tubular adenoma Tubulovillous adenoma Surgical History H/O colonoscopy History of esophagogastroduodenoscopy (EGD) Hx of bilateral cataract extraction Status post bilateral carotid endarterectomy Status post cardiac surgery Family History Maternal Aunt Cervical cancer Social History Household Members: Significant Other Housing: House Are you a primary healthcare interpreter to a significant other at home: No Alcohol intake: current Alcohol intake frequency: does not drink Patient Tobacco Use Status: Former Tobacco user Quit Date: 2014 Tobacco use type: Cigarette e-Cigarette/Vaping Use: Never Used Advance Directives Date on File: 04/04/20 service: No Current occupational status: retired Cognitive needs: No Hearing needs: No Vision needs: Yes Review of Systems Const Denies weakness ENT Denies dizziness Card Denies chest pain, Denies chest pain with activity, Denies syncope, Denies rapid heart rate, Denies pedal edema, Denies edema, Denies leg edema, Denies li ghtheadedness, Denies palpitations, Denies dyspnea, Denies dyspnea on exertion and Denies orthopnea Resp Denies cough, Denies dyspnea and Denies dyspnea on exertion GI Denies hematochezia and Denies change in stool character Musc Denies abnormal gait, Denies muscle cramps, Denies muscle weakness, Denies numbness, Denies radiating pain into limb and Denies tingling Neuro Denies abnormal gait, Denies dizziness, Denies syncope, Denies numbness, Denies tingling and Denies weakness Endo Denies palpitations Physical Exam Vital Signs: Last Vital Signs Pulse 83 12/19/22 09:14 BP 158/64 H 12/19/22 09:14 Const General: comfortable and no acute distress Orientation/consciousness: patient oriented x3 HEENT Other: Unremarkable Head: Yes normal to inspection Neck Neck: Yes normal visual inspection Chest Chest palpation & inspection: normal inspection of the chest Resp Auscultation: clear to auscultation bilaterally Cardio Palpation: normal PMI Heart sounds: S1 normal heart sound present, S2 normal heart sound present, no gallops, no murmurs and no rubs GI Palpation (GI): Soft to palpation Back/Spine/Pelvis Other: unremarkable Skin General skin exam: no rashes or lesions noted Neuro General: patient oriented x3 Extrem General: Yes normal to inspection Psych Mental Status: mental status grossly normal Office Procedures EKG Details: EKG with atrial fibrillation, 83/min, incomplete RBBB, non specific ST-T changes. [id number], Complete Assessment & Plan Assessment & Plan (1) Persistent atrial fibrillation: Code(s): I48.19 - Other persistent atrial fibrillation Plan: Not on rate control medications. Stable. Continue Eliquis. (2) Status post atrial septal defect repair: Code(s): Z87.74 - Personal history of (corrected) congenital malformations of heart and circulatory system Plan: Remote history. No recent concerns. (3) Abnormal myocardial perfusion study: Code(s): R94.39 - Abnormal result of other cardiovascular function study Plan: Prior myocardial perfusion imaging showed possible mild ischemia in the distal lateral wall and apex. Clinically, she has got absolutely no angina. May remain on statins. With diagnosis of malignancy, care be conservative. (4) Mitral annular calcification: Code(s): I05.9 - Rheumatic mitral valve disease, unspecified Plan: No significant valvular dysfunction. No specific management for this. (5) Essential hypertension: Code(s): I10 - Essential (primary) hypertension Plan: Increase amlodipine dosing. She will let us know in a month or so about the blood pressures. (6) Status post bilateral carotid endarterectomy: Comment: right 07/2006 & left 06/2006 Code(s): Z98.890 - Other specified postprocedural states Plan: Last carotid ultrasound from 2019 shows no hemodynamically significant stenosis in bilateral carotids. Medications: New amlodipine 5 mg PO DAILY 90 tabs 3RF Discontinued amlodipine 2.5 mg PO DAILY 90 tabs 3RF Coding Level of Care Code Est Pt Level 4 (29388) Diagnoses Persistent atrial fibrillation I48.19 Status post atrial septal defect repair Z87.74 Abnormal myocardial perfusion study R94.39 Mitral annular calcification I05.9 Essential hypertension I10 Status post bilateral carotid endarterectomy Z98.890 CPT Codes EKG - CPT: 17108-[id number], Complete ([id number])
[2022-12-19 09:14] VITALS: BP 158/64; PULSE 83
== END 2022-12-19 09:48 | disposition home or self-care (01) ==
PROVIDERS: PCP Internal Medicine; Referring Provider Internal Medicine; Visit Provider Internal Medicine
DX: I48.19 Other persistent atrial fibrillation (principal); Z87.74 Personal history of (corrected) congenital malformations of heart and circulatory system; R94.39 Abnormal result of other cardiovascular function study; I05.9 Rheumatic mitral valve disease, unspecified; I10 Essential (primary) hypertension; Z98.890 Other specified postprocedural states
CPT/HCPCS: 93010; 99214

== ENCOUNTER → 2022-12-19 09:07 | Outpatient (BNVA) | payer MEDICARE, SELFPAY | PROVIDERS: PCP Internal Medicine; Referring Provider Internal Medicine; Visit Provider Internal Medicine | DX: I48.19 Other persistent atrial fibrillation (principal); R94.39 Abnormal result of other cardiovascular function study; I05.9 Rheumatic mitral valve disease, unspecified; I10 Essential (primary) hypertension; Z87.74 Personal history of (corrected) congenital malformations of heart and circulatory system; Z79.01 Long term (current) use of anticoagulants | CPT/HCPCS: 93005; 99212 ==

== ENCOUNTER 2023-02-18 09:01 | Outpatient (REF) | payer MEDICARE, SELFPAY ==
--- NOTE | ~2023-02-18 | PE_ITS ---
EXAMINATION: Fluorine-18 FDG PET/CT Scan CLINICAL INDICATION: Subsequent treatment management. Malignant neoplasm right lung, restaging, assess response to therapy. PROCEDURE: 68 minutes following the intravenous administration of 16.3 mCi of fluorine 18 FDG, images from the base of the skull to the mid thighs were obtained using a combined PET/CT scanner with CT scan based attenuation correction. No oral contrast was administered. No intravenous contrast was administered. Transverse, coronal, sagittal, and volume reconstruction projections were obtained. The patient's blood glucose as determined by a finger stick, was 88 mg/dl immediately prior to injection. Total CT exam dose-length product 580.59 mGy-cm * These CT images were obtained using dose optimization techniques as appropriate, variously including the following: Automated exposure control * Adjustment of mA and/or kV according to patient size (this includes techniques or standardized protocols for targeted exams where dose is matched to indication/reason for exam; i.e. extremities or head) * Use of iterative reconstruction technique COMPARISON: The previous FDG PET CT scan dated 11/05/2022 is available for comparison. FINDINGS: (Slice numbers described in this report are numbered superiorly to inferiorly with slice #1 in the head) NECK AND VISUALIZED HEAD: No foci of abnormal FDG activity are noted. The distribution of FDG activity is physiological. There is no cervical lymphadenopathy. Presumed physiological muscular uptake in the anterior scalene muscles bilaterally in the left longus coli muscle are noted. THORAX: There is mild FDG activity associated with a right upper lobe opacity showing SUVmax 3.0, slice 63/267. This is much less intense than on the 11/05/2022 study when this showed SUVmax 10.6. There is also slightly smaller on the current study, measuring 1.7 x 1.9 cm in largest transverse dimensions versus 2.1 x 1.9 cm on 11/05/2022. No additional FDG avid foci or suspicious nodules are present in the lungs. There is now no mediastinal, supraclavicular, or axillary lymphadenopathy. Multiple FDG avid mediastinal, right hilar and right proximal peribronchial lymphadenopathy present on 11/05/2022 has resolved. There is no pleural or pericardial fluid, or pneumothorax. ABDOMEN AND PELVIS: There are no foci of abnormal FDG activity in the abdomen or pelvis. Mild FDG activity is present throughout the gastrointestinal tract without a suspicious focal component. There is diverticulosis without evidence of diverticulitis. The hollow viscera are otherwise unremarkable. The liver, gallbladder, and spleen are unremarkable. Multiple bilateral hypodense renal cysts are present, more extensively on the right, unchanged from the prior study and markedly FDG photopenic. The kidneys are otherwise unremarkable. The adrenal glands and pancreas are unremarkable. There is no retroperitoneal, mesenteric, pelvic or inguinal lymphadenopathy. MUSCULOSKELETAL: There is now only very mild FDG activity in the previously more intensely FDG avid focus in the L1 vertebral body, now showing SUVmax 2.8, slice 126/267 versus SUVmax 6.0 previously. There is now a 1.5 cm dense sclerotic focus at this site on the CT images, but this only showed subtle sclerosis on the 11/05/2022 study. There are no other foci of abnormal FDG activity present in the osseous structures. There are diffuse degenerative changes in the spine and poststernotomy changes including multiple sternal wires but no suspicious sclerotic or lytic lesions are present. VASCULAR: Diffuse vascular calcifications including coronary are noted. Reference SUVmax Levels: Mediastinal Blood Pool: 2.3, Slice 81/267 Liver: 3.2, Slice 132/267 PET/PET CT fusion skull to thigh IMPRESSION: 1. There has been a marked partial metabolic response to therapy of the previously visualized intensely FDG avid right upper lobe pulmonary nodule. 2. There has also been a complete metabolic response to therapy of extensive mediastinal, right hilar, and right proximal peribronchial lymphadenopathy present on 11/05/2022. 3. 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 Marked sclerosis at this site is additional CT evidence of healing. 4. No additional abnormalities suspicious for other metastatic or malignant lesions are noted. 5. Diffuse vascular calcifications including coronary.
== END 2023-02-18 09:02 | disposition home or self-care (01) ==
LOC: HO.PET 09:01
PROVIDERS: PCP Internal Medicine; Visit Provider Internal Medicine
DX: Z13.89 Encounter for screening for other disorder (principal)

== ENCOUNTER 2023-02-26 09:53 | Outpatient (REF) | payer MEDICARE, SELFPAY ==
--- NOTE | ~2023-02-26 | US_ITS ---
EXAMINATION: US VENOUS ULTRASOUND WITH DOPPLER LOWER EXTREMITY, RIGHT CLINICAL INFORMATION: Right leg swelling. COMPARISON: None available. TECHNIQUE: Ultrasound of the deep veins is performed from the hip to the calf with compression sonography and color and pulse Doppler assessment. Spectral analysis with color-flow imaging is performed. FINDINGS: There is normal venous compression and respiratory variation and augmented flow. The visualized common femoral vein, superficial femoral vein, profunda femoral vein, popliteal vein, and the trifurcation region shows no evidence of deep venous thrombosis. Fluid collection in the medial right popliteal fossa measures 1.6 x 0.6 x 3.2 cm. If the patient's symptoms persist, followup ultrasound in 5 days 7 days might be of value to exclude proximal propagation from a non-visualized calf vein. US/US venous duplex LE RT IMPRESSION: No DVT demonstrated in the right lower extremity. Medial right popliteal fossa fluid collection measures 1.6 x 0.6 x 3.2 cm.
== END 2023-02-26 09:54 | disposition home or self-care (01) ==
LOC: HO.US 09:53
PROVIDERS: PCP Internal Medicine; Visit Provider Internal Medicine
DX: C34.91 Malignant neoplasm of unspecified part of right bronchus or lung (principal); M79.89 Other specified soft tissue disorders
CPT/HCPCS: 93971

== ENCOUNTER 2023-03-05 10:56 | Outpatient (REF) | payer MEDICARE, SELFPAY ==
--- NOTE | ~2023-03-05 | MM_ITS ---
EXAMINATION: MM SCREENING DIGITAL BREAST TOMOSYNTHESIS, BILATERAL CLINICAL INFORMATION: Screening. Asymptomatic. COMPARISON: Mammography: This study is compared with prior exams dating back to 2018. TECHNIQUE: Digital breast tomosynthesis is performed in both the craniocaudal and mediolateral oblique views along with computer-aided detection (CAD). Synthesized 2D images are generated from the tomosynthesis. FINDINGS: There are scattered areas of fibroglandular density (ACR BI-RADS breast composition Category b). There are no significant masses, abnormal calcifications, or other abnormalities. There is tissue marker present in the left breast from prior benign percutaneous biopsy. MM/MM tomosynthesis screening BI IMPRESSION: No mammographic evidence of malignancy. ASSESSMENT: BI-RADS BI-RADS 2 - Benign Findings RECOMMENDATION: Routine annual mammography screening. 1 year F/U This examination should not preclude the clinical evaluation of a suspicious palpable abnormality. This patient's information was entered into a reminder system with a target due date for their next mammogram.
== END 2023-03-05 10:57 | disposition home or self-care (01) ==
LOC: HO.MAMMO 10:56
PROVIDERS: PCP Internal Medicine; Visit Provider Internal Medicine
DX: Z12.31 Encounter for screening mammogram for malignant neoplasm of breast (principal)
CPT/HCPCS: 77063; 77067

== ENCOUNTER → 2023-03-05 11:00 | Outpatient (BNV) | payer MEDICARE, SELFPAY | PROVIDERS: PCP Internal Medicine; Visit Provider Radiology Diagnostic Radiology | DX: Z12.31 Encounter for screening mammogram for malignant neoplasm of breast (principal) | CPT/HCPCS: 77063; 77067 ==

== ENCOUNTER 2023-04-22 10:08 | Outpatient (AMB) | payer MEDICARE, SELFPAY ==
[2023-04-22 10:22] VITALS: BP 142/60; PULSE 58; O2SAT 94
--- NOTE | 2023-04-22 10:22 | A.OFFPC_ITS ---
Vital Signs 04/22/23 10:22 Height 5 ft 4 in BMI Reason not done Patient refused/unable BP 142/60 H Blood Pressure Location Lt brachial Position Sitting Pulse 58 Pulse Source Pulse Oximeter Pulse Oximetry (%) 94 Oxygen Delivery Method Room Air Intake Visit Reasons: 3 month follow up Intake Note: Pt is here today for 3 months follow up visit. Allergies atorvastatin Adverse Reaction (Intermediate, Verified 04/22/23 10:23) Gastrointestinal Upset lovastatin Adverse Reaction (Intermediate, Verified 04/22/23 10:23) Gastrointestinal Upset Medication List - Last Reconciled 04/22/23 by Yamile Hearn MD albuterol sulfate 90 mcg/actuation 2 puffs inhalation Q6H PRN amlodipine 5 mg PO DAILY apixaban (Eliquis) 5 mg PO BID fluoxetine 10 mg PO DAILY levothyroxine 50 mcg PO DAILY lorazepam 0.5 mg PO DAILY PRN rosuvastatin 40 mg PO DAILY umeclidinium-vilanterol 62.5-25 mcg/actuation (Anoro Ellipta) 1 ea inhalation DAILY Tobacco use date assessed: 04/22/23 Fall risk assessment: No Falls in past year Last assessed Fall Risk: 04/22/23 Dental Screening Dental Screen Date: 04/22/23 Did you have a dental visit in the last 12 months?: Yes Did you have a dental problem in the last 6 months where you did not have access to dental care?: No Was dental information given to patient?: Patient has dentist HPI 3 month follow up HPI Details Patient presents for the follow-up. She has been getting immunotherapy for metastatic lung CA and tolerating the treatment well. Patient has been having elevated blood pressure on a few occasions. She denies chest pain shortness of breath palpitations headaches. Patient remains in AFib and has been asymptomatic. COPD is controlled on Anoro. Patient follows up with magnet maker for extensive squamous cell CA on the lower extremities. [facility] Medical History (Updated 04/22/23 @ 11:02 by Yamile Hearn MD) Tubular adenoma Tubulovillous adenoma Annual physical exam Abnormal myocardial perfusion study Atrial septal defect Persistent atrial fibrillation COPD (chronic obstructive pulmonary disease) Osteoporosis Tibia fracture Cancer, skin, squamous cell Anxiety Hypothyroid High cholesterol Surgical History Hx of bilateral cataract extraction History of esophagogastroduodenoscopy (EGD) H/O colonoscopy Status post bilateral carotid endarterectomy Status post cardiac surgery Family History Maternal Aunt Cervical cancer Social History Household Members: Significant Other Housing: House Are you a primary floor care specialist to a significant other at home: No Alcohol intake: current Alcohol intake frequency: does not drink Patient Tobacco Use Status: Former Tobacco user Quit Date: 2014 Tobacco use type: Cigarette e-Cigarette/Vaping Use: Never Used Advance Directives Date on File: 04/04/20 service: No Current occupational status: retired Cognitive needs: No Hearing needs: No Vision needs: Yes Questionnaire PHQ-9 Over the last 2 weeks, how often have you been bothered by any of the following problems? 1. Little interest or pleasure in doing things: not at all 2. Feeling down, depressed, or hopeless: not at all 3. Trouble falling or staying asleep, or sleeping too much: not at all 4. Feeling tired or having little energy: not at all 5. Poor appetite or overeating: not at all 6. Feeling bad about yourself - or that you are a failure or have let yourself or your family down: not at all 7. Trouble concentrating on things, such as reading the newspaper or watching television: not at all 8. Moving or speaking so slowly that other people could have noticed. Or the opposite - being so fidgety or restless that you have been moving around a lot more than usual: not at all 9. Thoughts that you would be better off or of hurting yourself in some way: not at all Total score: 0 Depression Screening Interpretation: Negative Depression Screening Done: Yes Source: Developed by Drs. Devang Jordan, Terra Arias, Irvin Gonzalez and colleagues, with an educational kristel from [employer]. Thrive Questionnaire Date Thrive assessed: 04/22/23 I am a: Patient What is your living situation today?: I have a steady place to live Within the past 12 months, did the food you bought not last and you didn't have the money to get more?: Never true Within the past 12 months, did you worry whether your food would run out before you got money to buy more?: Never true Do you have trouble paying for medicines?: No Do you have trouble getting transportation to medical appointments?: No Do you have trouble paying your heating and electricity bill?: No Do you have trouble taking care of your child, family member or friend?: No Do you have trouble with day-to-day activities such as bathing, preparing meals, shopping, managing finances, etc.?: No Are you currently unemployed and looking for a job?: No Are you interested in more education?: No Please select the resources that you would like help with: None Currently or been in a relationship where the following occur: no concerns reported SHADY-7 AMB Questionnaire SHADY-7 Date SHADY - 7 assessed: 04/22/23 Feeling nervous, anxious, or on edge: 0 = Not at all Not being able to stop or control worryin = Not at all Worrying too much about different things: 0 = Not at all Trouble relaxin = Not at all Being so restless that it is hard to sit still: 0 = Not at all Becoming easily annoyed or irritable: 0 = Not at all Feeling afraid as if something awful might happen: 0 = Not at all Total SHADY-7 score (0-4 normal; 5-9 mild; 10-14 moderate; 15-21 severe): 0 Source: Developed by Drs. Devang Jordan, Terra Arias, Irvin Gonzalez and colleagues, with an educational kristel from [employer]. Review of Systems Const All systems reviewed & are unremarkable except as noted in HPI and below Reports no additional complaints Eyes Reports no additional complaints ENT Reports no additional complaints Card Reports no additional complaints Resp Reports no additional complaints GI Reports no additional complaints Reports no additional complaints Physical exam (Primary Care) Vital Signs: Last Vital Signs Pulse 58 04/22/23 10:22 BP 142/60 H 04/22/23 10:22 Pulse Ox 94 04/22/23 10:22 Oxygen Delivery Method Room Air 04/22/23 10:22 Tobacco/Smoking Status: Tobacco use Status Tobacco use date assessed 04/22/23 04/22/23 10:31 Patient Tobacco Use Status Former Tobacco user 04/22/23 10:31 Tobacco use type Cigarette 04/22/23 10:31 e-Cigarette/Vaping Use Never Used 04/22/23 10:31 PHQ-9: PHQ-9 Score PHQ-9: Total score 0 04/22/23 10:31 Depression Screening Interpretation: Negative Thrive Assessment: Date of Thrive Assessment Date Thrive assessed 04/22/23 04/22/23 10:31 Currently or been in a relationship where the following occur: no concerns reported Const General: no acute distress HENMT Face and sinus: Yes normal facial exam Neck Neck: Yes supple Resp Effort & Inspection: normal respiratory effort Auscultation: diminished lung sounds Cardio Rhythm: abnormal rhythm irregularly irregular Heart sounds: S1 normal heart sound present and S2 normal heart sound present GI Inspection: Yes normal to inspection Palpation (GI): Soft to palpation Assessment and Plan Assessment & Plan (1) Persistent atrial fibrillation: Code(s): I48.19 - Other persistent atrial fibrillation Plan: Continue Eliquis follow-up with Cardiology (2) Hypothyroid: Code(s): E03.9 - Hypothyroidism, unspecified Plan: Continue levothyroxine (3) COPD (chronic obstructive pulmonary disease): Code(s): J44.9 - Chronic obstructive pulmonary disease, unspecified Plan: Continue Trelegy (4) Non-small cell cancer of right lung: Comment: PET scan 10/11 showed mets to cervical, mediastinal LNs, ? verterbral body L1, f/u Code(s): C34.91 - Malignant neoplasm of unspecified part of right bronchus or lung Plan: Follow-up with oncology (5) HTN (hypertension): Code(s): I10 - Essential (primary) hypertension Plan: Increase amlodipine to 7.5 mg a day and patient will have a blood pressure monitored at oncology, she will return in 3 months for wellness visit Orders: Orders Comprehensive [place]. Panel Fast 3 Months C34.91 - Malignant neoplasm of unspecified part of right bronchus or lung, E03.9 - Hypothyroidism, unspecified, I10 - Essential (primary) hypertension, I48.19 - Other persistent atrial fibrillation, J44.9 - Chronic obstructive pulmonary disease, unspecified Hemoglobin A1c 3 Months C34.91 - Malignant neoplasm of unspecified part of right bronchus or lung, E03.9 - Hypothyroidism, unspecified, I10 - Essential (primary) hypertension, I48.19 - Other persistent atrial fibrillation, J44.9 - Chronic obstructive pulmonary disease, unspecified Lipid Panel 3 Months C34.91 - Malignant neoplasm of unspecified part of right bronchus or lung, E03.9 - Hypothyroidism, unspecified, I10 - Essential (primary) hypertension, I48.19 - Other persistent atrial fibrillation, J44.9 - Chronic obstructive pulmonary disease, unspecified Coding Level of Care Code Est Pt Level 4 (43544) Diagnoses Persistent atrial fibrillation I48.19 Hypothyroid E03.9 COPD (chronic obstructive pulmonary disease) J44.9 Non-small cell cancer of right lung C34.91 HTN (hypertension) I10
== END 2023-04-22 11:09 | disposition home or self-care (01) ==
PROVIDERS: PCP Internal Medicine; Visit Provider Internal Medicine
DX: I48.19 Other persistent atrial fibrillation (principal); E03.9 Hypothyroidism, unspecified; J44.9 Chronic obstructive pulmonary disease, unspecified; C34.91 Malignant neoplasm of unspecified part of right bronchus or lung; I10 Essential (primary) hypertension
CPT/HCPCS: 99214

== ENCOUNTER 2023-06-12 08:41 | Outpatient (AMB) | payer MEDICARE, SELFPAY ==
[2023-06-12 08:56] VITALS: BP 136/58; PULSE 66; O2SAT 97
--- NOTE | 2023-06-12 08:56 | A.OFFVIS_ITS ---
Intake Vital Signs 06/12/23 08:56 Height 5 ft 4 in BMI Reason not done Patient refused/unable BP 136/58 L Blood Pressure Location Lt brachial Position Sitting Pulse 66 Pulse Source Pulse Oximeter Pulse Oximetry (%) 97 Oxygen Delivery Method Room Air Intake Visit Reasons: 6 month follow up Intake Note: Pt presents to the office today for a 6 month follow up. Allergies atorvastatin Adverse Reaction (Intermediate, Verified 06/12/23 08:59) Gastrointestinal Upset lovastatin Adverse Reaction (Intermediate, Verified 06/12/23 08:59) Gastrointestinal Upset Medication List - Last Reconciled 06/12/23 by Juarez Coreas MD albuterol sulfate 90 mcg/actuation 2 puffs inhalation Q6H PRN amlodipine 7.5 mg PO DAILY apixaban (Eliquis) 5 mg PO BID fluoxetine 10 mg PO DAILY levothyroxine 50 mcg PO DAILY lorazepam 0.5 mg PO DAILY PRN pembrolizumab 200 mg IV Q3W rosuvastatin 40 mg PO DAILY umeclidinium-vilanterol 62.5-25 mcg/actuation (Anoro Ellipta) 1 ea inhalation DAILY HPI HPI Comments History of Present Illness Details Aneta returns for follow-up regarding atrial fibrillation, remote history of ASD repair. No known coronary disease, myocardial infarction. There is a history of bilateral carotid endarterectomy. She also has lung cancer and sees Oncology. Overall, doing good. No new complaints. Nothing specifically from cardiac. [facility] Medical History Tubular adenoma Tubulovillous adenoma Annual physical exam Abnormal myocardial perfusion study Atrial septal defect Persistent atrial fibrillation COPD (chronic obstructive pulmonary disease) Osteoporosis Tibia fracture Cancer, skin, squamous cell Anxiety Hypothyroid High cholesterol Surgical History Hx of bilateral cataract extraction History of esophagogastroduodenoscopy (EGD) H/O colonoscopy Status post bilateral carotid endarterectomy Status post cardiac surgery Family History Maternal Aunt Cervical cancer Social History Household Members: Significant Other Housing: House Are you a primary client care consultant to a significant other at home: No Alcohol intake: current Alcohol intake frequency: does not drink Patient Tobacco Use Status: Former Tobacco user Quit Date: 2014 Tobacco use type: Cigarette e-Cigarette/Vaping Use: Never Used Advance Directives Date on File: 04/04/20 service: No Current occupational status: retired Cognitive needs: No Hearing needs: No Vision needs: Yes Review of Systems Const All systems reviewed & are unremarkable except as noted in HPI and below Reports as per HPI and Reports no additional complaints Eyes Reports as per HPI and Denies no additional complaints ENT Denies no additional complaints and Reports as per HPI Card Reports rapid heart rate, Reports palpitations and Denies dyspnea Resp Reports as per HPI, Denies no additional complaints and Denies dyspnea GI Reports as per HPI and Denies no additional complaints Reports as per HPI Musc Reports no additional complaints and Reports as per HPI Skin/Breast Reports system reviewed and no additional complaints, except as documented Neuro Reports no additional complaints and Reports as per HPI Psych Reports no additional complaints and Reports as per HPI Endo Reports palpitations Horacio/Lymph Reports no additional complaints and Reports as per HPI Aller/Immun Reports no additional complaints and Reports as per HPI Physical Exam Vital Signs: Last Vital Signs Pulse 66 06/12/23 08:56 BP 136/58 L 06/12/23 08:56 Pulse Ox 97 06/12/23 08:56 Oxygen Delivery Method Room Air 06/12/23 08:56 Const General: comfortable and no acute distress Orientation/consciousness: patient oriented x3 HEENT Other: Unremarkable Head: Yes normal to inspection Neck Neck: Yes normal visual inspection Chest Chest palpation & inspection: normal inspection of the chest Resp Auscultation: clear to auscultation bilaterally Cardio Palpation: normal PMI Heart sounds: S1 normal heart sound present, S2 normal heart sound present, no gallops, no murmurs and no rubs GI Palpation (GI): Soft to palpation Back/Spine/Pelvis Other: unremarkable Skin General skin exam: no rashes or lesions noted Neuro General: patient oriented x3 Extrem General: Yes normal to inspection Psych Mental Status: mental status grossly normal Assessment & Plan Assessment & Plan (1) Persistent atrial fibrillation: Code(s): I48.19 - Other persistent atrial fibrillation Plan: Not on rate control medications. Stable. Continue Eliquis. (2) Status post atrial septal defect repair: Code(s): Z87.74 - Personal history of (corrected) congenital malformations of heart and circulatory system Plan: Remote history. No recent concerns. (3) Abnormal myocardial perfusion study: Code(s): R94.39 - Abnormal result of other cardiovascular function study Plan: Prior myocardial perfusion imaging showed possible mild ischemia in the distal lateral wall and apex. Clinically, she has got absolutely no angina. May remain on statins. Last LDL 60 mg/dL. With diagnosis of malignancy, likely conservative unless any overt symptoms. (4) Mitral annular calcification: Code(s): I05.9 - Rheumatic mitral valve disease, unspecified Plan: No significant valvular dysfunction. No specific management for this. (5) Essential hypertension: Code(s): I10 - Essential (primary) hypertension Plan: Increase amlodipine to 10 mg daily. (6) Status post bilateral carotid endarterectomy: Comment: right 07/2006 & left 06/2006 Code(s): Z98.890 - Other specified postprocedural states Plan: Last carotid ultrasound from 2019 shows no hemodynamically significant stenosis in bilateral carotids. May repeat. Orders: Orders US carotid duplex BI Today I65.23 - Occlusion and stenosis of bilateral carotid arteries, Z98.890 - Other specified postprocedural states CA echo transthoracic complete 6 Months I25.10 - Atherosclerotic heart disease of [place] coronary artery without angina pectoris, I42.9 - Cardiomyopathy, unspecified Medications: New amlodipine 10 mg PO DAILY 90 tabs 3RF Coding Level of Care Code Est Pt Level 4 (63401) Diagnoses Persistent atrial fibrillation I48.19 Status post atrial septal defect repair Z87.74 Abnormal myocardial perfusion study R94.39 Mitral annular calcification I05.9 Essential hypertension I10 Status post bilateral carotid endarterectomy Z98.890
== END 2023-06-12 09:23 | disposition home or self-care (01) ==
PROVIDERS: PCP Internal Medicine; Visit Provider Internal Medicine
DX: I48.19 Other persistent atrial fibrillation (principal); Z87.74 Personal history of (corrected) congenital malformations of heart and circulatory system; R94.39 Abnormal result of other cardiovascular function study; I05.9 Rheumatic mitral valve disease, unspecified; I10 Essential (primary) hypertension; Z98.890 Other specified postprocedural states
CPT/HCPCS: 99214

== ENCOUNTER → 2023-06-12 08:41 | Outpatient (BNVA) | payer MEDICARE, SELFPAY | PROVIDERS: PCP Internal Medicine; Visit Provider Internal Medicine | DX: I48.19 Other persistent atrial fibrillation (principal); I05.9 Rheumatic mitral valve disease, unspecified; I10 Essential (primary) hypertension; R94.39 Abnormal result of other cardiovascular function study; Z98.890 Other specified postprocedural states; Z87.74 Personal history of (corrected) congenital malformations of heart and circulatory system | CPT/HCPCS: 99212 ==

== ENCOUNTER 2023-07-29 08:51 | Outpatient (REF) | payer MEDICARE, SELFPAY ==
--- NOTE | ~2023-07-29 | US_ITS ---
EXAMINATION: US EXTRACRANIAL CAROTID DUPLEX, BILATERAL CLINICAL INFORMATION: Occlusion and stenosis of bilateral carotid arteries COMPARISON: Carotid ultrasound 10/04/2019, carotid duplex 09/15/2018 TECHNIQUE: Real-time ultrasound and Doppler techniques (integrating B-mode 2-D vascular images, Doppler spectral analysis and color-flow Doppler imaging) were utilized to interrogate the extracranial carotid arteries, the vertebral arteries and proximal subclavian arteries bilaterally. The degree of stenosis is determined by criteria similar to NASCET. FINDINGS: Right Side: 1. There is mild atherosclerotic plaque seen in the bifurcation/proximal ICA region. 2. The common carotid artery PSV proximally is 91.2 cm/s and distally 63.7 cm/s. 3. The proximal internal carotid artery velocities are 105 cm/s systolic and 27.5 cm/s diastolic. 4. The proximal external carotid artery PSV is 85 cm/s. 5. The vertebral artery shows antegrade flow. 6. The subclavian artery waveforms are normal. Left Side: 1. There is mild atherosclerotic plaque seen in the bifurcation/proximal ICA region. 2. The common carotid artery PSV proximally is 98.5 cm/s and distally 81.5 cm/s. 3. The proximal internal carotid artery velocities are 192 cm/s systolic and 24.9 cm/s diastolic. 4. The proximal external carotid artery PSV is 108 cm/s. 5. The vertebral artery shows antegrade flow. 6. The subclavian artery waveforms are normal. US/US carotid duplex BI IMPRESSION: 1. RIGHT: Minimal, non-hemodynamically significant stenosis of the proximal right internal carotid artery corresponding to a 0-49% stenosis by velocity criteria. 2. LEFT: Moderate, hemodynamically significant stenosis of the proximal left internal carotid artery corresponding to a 50-79% stenosis by velocity criteria. 3. The degree of stenosis on the right is unchanged from the most recent prior, but increased from most recent prior on the left. 4. Right vertebral artery waveform is suspicious for early/pre-steal, although no stenosis is visualized in the right subclavian artery.
== END 2023-07-29 08:52 | disposition home or self-care (01) ==
LOC: HO.HMGCX 08:51
PROVIDERS: PCP Internal Medicine; Visit Provider Internal Medicine
DX: I65.23 Occlusion and stenosis of bilateral carotid arteries (principal); Z98.890 Other specified postprocedural states
CPT/HCPCS: 93880

== ENCOUNTER 2023-08-05 08:00 | Outpatient (REF) | payer MEDICARE, SELFPAY ==
--- NOTE | ~2023-08-05 | PE_ITS ---
EXAMINATION: Fluorine-18 FDG PET/CT Scan CLINICAL INDICATION: Subsequent treatment management. Non-small cell cancer of right lung. Restaging. PROCEDURE: 55 minutes following the intravenous administration of 17.3 mCi of fluorine 18 FDG, images from the base of the skull to the mid thighs were obtained using a combined PET/CT scanner with CT scan based attenuation correction. No oral contrast was administered. No intravenous contrast was administered. Transverse, coronal, sagittal, and volume reconstruction projections were obtained. The patient's blood glucose as determined by a finger stick, was 87 mg/dl immediately prior to injection. Total CT exam dose-length product 514.54 mGy-cm * These CT images were obtained using dose optimization techniques as appropriate, variously including the following: Automated exposure control * Adjustment of mA and/or kV according to patient size (this includes techniques or standardized protocols for targeted exams where dose is matched to indication/reason for exam; i.e. extremities or head) * Use of iterative reconstruction technique COMPARISON: No previous PET/CT scans dated 02/18/2023 and 11/05/2022 are available for comparison. FINDINGS: (Slice numbers described in this report are numbered superiorly to inferiorly with slice #1 in the head) NECK AND VISUALIZED HEAD: No foci of abnormal FDG activity are noted. The distribution of FDG activity is physiological. There is no cervical lymphadenopathy. THORAX: There is weak FDG activity in a spiculated right upper lobe pulmonary nodule, SUVmax 1.5, slice 60/267. This is less intense than on the most recent 02/18/2023 PET/CT scan when this showed SUVmax 3.0 and much less intense than on the baseline 11/05/2022 study when this showed SUVmax 10.6. Irregular spiculated mass is difficult to measure but also appears smaller on the CT images, now measuring 1.6 x 1.6 cm in largest transverse dimensions versus 1.7 x 1.9 cm previously. No additional foci of abnormal FDG activity or suspicious pulmonary nodules are present in the chest. There is some minimal scarring or atelectasis in the lung bases bilaterally, slightly more prominently on the right with no associated abnormal FDG activity. There is no pleural or pericardial fluid, or pneumothorax. There is no mediastinal, supraclavicular, or axillary lymphadenopathy. ABDOMEN AND PELVIS: There are no foci of abnormal FDG activity in the abdomen or pelvis. Mild FDG activity is present throughout the gastrointestinal tract without a suspicious focal component. There is diverticulosis without evidence of diverticulitis. The hollow viscera are otherwise unremarkable. The liver, gallbladder, and spleen are unremarkable. Multiple bilateral hypodense renal cysts are present, more extensively on the right, unchanged from the prior study and markedly FDG photopenic. The kidneys are otherwise unremarkable. The adrenal glands and pancreas are unremarkable. There is no retroperitoneal, mesenteric, pelvic or inguinal lymphadenopathy. MUSCULOSKELETAL: There is now only weak FDG activity in the L1 vertebral body, SUVmax 2.3. This is slightly less intense than on 02/18/2023 when this showed SUVmax 2.8, and much less intense than on the baseline 11/05/2022 study when this showed SUVmax 6.0. There is a sclerotic focus on the corresponding CT images now which is larger and more dense than on the 02/18/2023 study, measuring 1.7 cm in largest transverse dimension. No additional foci of abnormal FDG activity are present in the osseous structures. There are mild diffuse degenerative changes in the spine and poststernotomy changes are present including multiple sternal wires. There is no abnormal FDG activity in the sternum or in any other site. No additional suspicious sclerotic or lytic lesions are visualized. VASCULAR: Diffuse vascular calcifications including coronary. Reference SUVmax Levels: Mediastinal Blood Pool: 2.0, Slice 81/267 Liver: 2.8, Slice 113/267 PET/PET CT fusion skull to thigh IMPRESSION: 1. There continues to be a marked partial metabolic response to therapy of a previously visualized intensely FDG avid right upper lobe pulmonary nodule and an FDG avid metastasis in the L1 vertebral body. Both of these are now slightly less intense than on the 02/18/2023 most recent previous study, and much less intense than on the baseline 11/05/2022 study. 2. There continues to be complete metabolic response to therapy of extensive mediastinal, right hilar, and left supraclavicular FDG avid lymphadenopathy present on the baseline 11/05/2022 study. 3. No additional abnormalities suspicious for other metastatic or malignant lesions are present. 4. Diffuse vascular calcifications including coronary.
== END 2023-08-05 08:01 | disposition home or self-care (01) ==
LOC: HO.PET 08:00
PROVIDERS: PCP Internal Medicine; Visit Provider Internal Medicine
DX: Z13.89 Encounter for screening for other disorder (principal)

== ENCOUNTER 2023-08-07 13:21 | Outpatient (AMB) | payer MEDICARE, SELFPAY ==
[2023-08-07 14:04] VITALS: BP 128/56; PULSE 65; O2SAT 95; BMI 23.7
--- NOTE | 2023-08-07 14:04 | A.OFFPC_ITS ---
Vital Signs 08/07/23 14:04 Height 5 ft 4 in Weight 138 lb BMI 23.7 BP 128/56 L Blood Pressure Location Rt brachial Position Sitting Pulse 65 Pulse Source Pulse Oximeter Pulse Oximetry (%) 95 Oxygen Delivery Method Room Air Intake Visit Reasons: Follow up Intake Note: Pt is here today for a follow up visit on lab results. Allergies atorvastatin Adverse Reaction (Intermediate, Verified 08/07/23 14:05) Gastrointestinal Upset lovastatin Adverse Reaction (Intermediate, Verified 08/07/23 14:05) Gastrointestinal Upset Medication List - Last Reconciled 08/07/23 by Yamile Hearn MD albuterol sulfate 90 mcg/actuation 2 puffs inhalation Q6H PRN amlodipine 10 mg PO DAILY apixaban (Eliquis) 5 mg PO BID fluoxetine 10 mg PO DAILY levothyroxine 50 mcg PO DAILY lorazepam 0.5 mg PO DAILY PRN pembrolizumab 200 mg IV Q3W rosuvastatin 40 mg PO DAILY umeclidinium-vilanterol 62.5-25 mcg/actuation (Anoro Ellipta) 1 ea inhalation DAILY Tobacco use date assessed: 08/07/23 Fall risk assessment: No Falls in past year Last assessed Fall Risk: 08/07/23 Dental Screening Dental Screen Date: 08/07/23 Did you have a dental visit in the last 12 months?: Yes Did you have a dental problem in the last 6 months where you did not have access to dental care?: No Was dental information given to patient?: Patient has dentist HPI Follow up HPI Details Patient presents for the follow-up on hypertension hyperlipidemia chronic AFib COPD. Patient is undergoing treatment for metastatic lung cancer with Keytruda with good response on the most recent PET scan. Patient developed recurrence of skin cancers on her right lower extremity and face since starting treatment with Keytruda. 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 [facility] Medical History (Updated 08/07/23 @ 14:36 by Yamile Hearn MD) Tubular adenoma Tubulovillous adenoma Annual physical exam Abnormal myocardial perfusion study Atrial septal defect Persistent atrial fibrillation COPD (chronic obstructive pulmonary disease) Osteoporosis Tibia fracture Cancer, skin, squamous cell Anxiety Hypothyroid High cholesterol Surgical History Hx of bilateral cataract extraction History of esophagogastroduodenoscopy (EGD) H/O colonoscopy Status post bilateral carotid endarterectomy Status post cardiac surgery Family History Maternal Aunt Cervical cancer Social History Household Members: Significant Other Housing: House Are you a primary acute care clinical nurse specialist to a significant other at home: No Alcohol intake: current Alcohol intake frequency: does not drink Patient Tobacco Use Status: Former Tobacco user Quit Date: 2014 Tobacco use type: Cigarette e-Cigarette/Vaping Use: Never Used Advance Directives Date on File: 04/04/20 service: No Current occupational status: retired Cognitive needs: No Hearing needs: No Vision needs: Yes Questionnaire Thrive Questionnaire Date Thrive assessed: 04/22/23 SHADY-7 AMB Questionnaire SHADY-7 Date SHADY - 7 assessed: 04/22/23 Source: Developed by Drs. Devang Jordan, Terra Arias, Irvin Gonzalez and colleagues, with an educational kristel from [employer]. Review of Systems Const All systems reviewed & are unremarkable except as noted in HPI and below Eyes Reports no additional complaints Card Reports no additional complaints Resp Reports no additional complaints GI Reports no additional complaints Reports no additional complaints Physical exam (Primary Care) Vital Signs: Last Vital Signs Pulse 65 08/07/23 14:04 BP 128/56 L 08/07/23 14:04 Pulse Ox 95 08/07/23 14:04 Oxygen Delivery Method Room Air 08/07/23 14:04 BMI result Body Mass Index 23.7 Tobacco/Smoking Status: Tobacco use Status Tobacco use date assessed 08/07/23 08/07/23 14:09 Patient Tobacco Use Status Former Tobacco user 08/07/23 14:09 Tobacco use type Cigarette 08/07/23 14:09 e-Cigarette/Vaping Use Never Used 08/07/23 14:09 Thrive Assessment: Date of Thrive Assessment Date Thrive assessed 04/22/23 08/07/23 14:09 Const General: no acute distress HENMT Head: Yes normal to inspection Face and sinus: Yes normal facial exam Eyes General: appearance normal, both eyes and all related structures Neck Neck: Yes supple Resp Effort & Inspection: normal respiratory effort Auscultation: diminished lung sounds Cardio Rhythm: abnormal rhythm irregularly irregular Heart sounds: S1 normal heart sound present and S2 normal heart sound present GI Inspection: Yes normal to inspection Palpation (GI): Soft to palpation Percussion: Yes normal to percussion Auscultation: normal bowel sounds Assessment and Plan Assessment & Plan (1) High cholesterol: Code(s): E78.00 - Pure hypercholesterolemia, unspecified Plan: Patient has been on rosuvastatin (2) Non-small cell cancer of right lung: Comment: PET scan 10/11 showed mets to cervical, mediastinal LNs, ? verterbral body L1, f/u Code(s): C34.91 - Malignant neoplasm of unspecified part of right bronchus or lung Plan: Continue current treatment follow-up with Oncology (3) Essential hypertension: Code(s): I10 - Essential (primary) hypertension Plan: Continue current treatment (4) Persistent atrial fibrillation: Code(s): I48.19 - Other persistent atrial fibrillation Plan: Continue Eliquis for anticoagulation (5) COPD (chronic obstructive pulmonary disease): Code(s): J44.9 - Chronic obstructive pulmonary disease, unspecified Plan: Continue Anoro Orders: Orders Lipid Panel 2 Weeks E78.00 - Pure hypercholesterolemia, unspecified Coding Level of Care Code Est Pt Level 4 (87436) Diagnoses High cholesterol E78.00 Non-small cell cancer of right lung C34.91 Essential hypertension I10 Persistent atrial fibrillation I48.19 COPD (chronic obstructive pulmonary disease) J44.9
== END 2023-08-07 15:15 | disposition home or self-care (01) ==
PROVIDERS: PCP Internal Medicine; Visit Provider Internal Medicine
DX: E78.00 Pure hypercholesterolemia, unspecified (principal); C34.91 Malignant neoplasm of unspecified part of right bronchus or lung; I48.19 Other persistent atrial fibrillation; J44.9 Chronic obstructive pulmonary disease, unspecified; I10 Essential (primary) hypertension
CPT/HCPCS: 99214

== ENCOUNTER 2023-10-17 09:26 | Outpatient (AMB) | payer MEDICARE, SELFPAY ==
--- NOTE | 2023-10-17 10:00 | AM.OFFWIN_ITS ---
Intake Vital Signs 3 10/17/23 10:01 Height 5 ft 4 in Weight 135 lb BMI 23.2 BP 126/76 Blood Pressure Location Lt brachial Position Sitting Pulse 57 Pulse Source Pulse Oximeter Temp 97.6 F Temp Source Oral Pulse Oximetry (%) 91 L Oxygen Delivery Method Room Air Intake Visit Reasons: EP rt ear ache Intake Note: pt is here c/o RT ear ache. Started 2 days ago. Patient Tobacco Use Status: Former Tobacco user Allergies atorvastatin Adverse Reaction (Intermediate, Verified 10/17/23 10:01) Gastrointestinal Upset lovastatin Adverse Reaction (Intermediate, Verified 10/17/23 10:01) Gastrointestinal Upset Do you need a note to return to daycare/school/sports/work: No HPI HPI Comments 2 History of Present Illness0 Details 83 y/o female patient who presents to [facility] with c/o right ear pain x 2 days. H/o Lung CA currently on Keytruda. H/o surgery right Jaw/neck by [facility] ~ 1 month ago. Wears Dentures, needs to see Dentist (last seen 2-3 years ago). [facility] Medical History (Updated 08/07/23 @ 14:36 by Yamile Hearn MD) Tubular adenoma Tubulovillous adenoma Annual physical exam Abnormal myocardial perfusion study Atrial septal defect Persistent atrial fibrillation COPD (chronic obstructive pulmonary disease) Osteoporosis Tibia fracture Cancer, skin, squamous cell Anxiety Hypothyroid High cholesterol Surgical History Hx of bilateral cataract extraction History of esophagogastroduodenoscopy (EGD) H/O colonoscopy Status post bilateral carotid endarterectomy Status post cardiac surgery Family History Maternal Aunt Cervical cancer Social History Household Members: Significant Other Housing: House Are you a primary primary care nurse practitioner to a significant other at home: No Alcohol intake: current Alcohol intake frequency: does not drink Patient Tobacco Use Status: Former Tobacco user Tobacco use type: Cigarette e-Cigarette/Vaping Use: Never Used Advance Directives Date on File: 04/04/20 service: No Current occupational status: retired Cognitive needs: No Hearing needs: No Vision needs: Yes Review of Systems Const All systems reviewed & are unremarkable except as noted in HPI and below Physical Exam Vital Signs: Last Vital Signs Temp 97.6 F 10/17/23 10:01 Pulse 57 10/17/23 10:01 BP 126/76 10/17/23 10:01 Pulse Ox 91 L 10/17/23 10:01 Oxygen Delivery Method Room Air 10/17/23 10:01 BMI result Body Mass Index 23.2 Const General: comfortable and no acute distress Orientation/consciousness: patient oriented x3 HEENT Head: Yes normocephalic Ears: external ears normal and TM abnormal obstructed by cerumen bilateral General nose exam: Normal nasal mucous membranes and turbinates present Face and sinus: Yes sinuses nontender Mouth: moist mucous membranes Teeth and gingiva: dentures (Upper Jaw, partials lower Jaw) Throat: Yes posterior oropharynx normal Neck Neck: Yes full ROM, Yes no lymphadenopathy and Yes trachea midline Thyroid: Thyroid normal Lymphatic: no lymphadenopathy noted Neck images: 2 1. Well healed Scar visible Neuro General: patient oriented x3, gait normal and moves all extremities Psych Speech and movement: Normal speech and movement present Office Procedures Cerumen Removal From which ear canal was the cerumen removed: bilateral Removal: irrigation Notes: patient tolerated procedure well [id number] Irrigation/Lavage Assessment & Plan Assessment & Plan (1) Cerumen impaction: Code(s): H61.20 - Impacted cerumen, unspecified ear Qualifiers: Laterality: bilateral Qualified Code(s): H61.23 - Impacted cerumen, bilateral Plan: Amb Bilateral Ear irrigation/lavage. TM clear and intact, mild redness no signs of infection. No drainage. (2) Acute pain of right ear: Code(s): H92.01 - Otalgia, right ear Plan: Acetaminophen for pain relief H/o surgery Right mandible/Neck (Dermatology) Advised to f/u with Dentist for further evaluation. Ice/Hot Orders: Orders 2 AMB Cerumen Removal Today H61.23 - Impacted cerumen, bilateral Medications: New 2 acetaminophen 1,000 mg (2 x 500 mg) PO Q6H PRN 30 caps 0RF pain (scale score 1- 3) H92.01 - Otalgia, right ear penicillin V potassium 500 mg PO TID 7 days 21 tabs 0RF H92.01 - Otalgia, right ear Coding Level of Care Code Est Pt Level 4 (45103) Diagnoses Bilateral impacted cerumen H61.23 Laterality: bilateral Acute pain of right ear H92.01 CPT Codes Office Procedure - CPT: [id number] Irrigation/Lavage ([id number]) Time Spent (min) 20
[2023-10-17 10:01] VITALS: BP 126/76; PULSE 57; TEMP 36.4; O2SAT 91; BMI 23.2
== END 2023-10-17 11:00 | disposition home or self-care (01) ==
PROVIDERS: PCP Internal Medicine; Visit Provider Nurse Practitioner Family
DX: H61.23 Impacted cerumen, bilateral (principal); H92.01 Otalgia, right ear
CPT/HCPCS: 69209; 99214

== ENCOUNTER → 2023-11-17 08:41 | Outpatient (REF) | payer MEDICARE, SELFPAY ==
--- NOTE | 2023-11-17 08:44 | CA_ITS ---
Transthoracic Echocardiogram Patient (Last, First, Middle): Aneta Broussard A Gender: Female Date of : 1940 Age: 83 Procedure Date: 11/17/2023 Procedure Type: Transthoracic Echocardiogram Location: OP Height: 162. cm Weight: 58.97 kg BSA: 1.62 m2 Heart Rate: 69 bpm BP: 150 / 55 mmHg Technician [employer]: LEO Referring MD: Juarez Coreas MD Symptoms: I25.10 - Atherosclerotic heart disease of [place] coronary artery without... Study Quality: Adequate ECG Rhythm: Atrial Fibrillation Conclusions: - The left ventricular systolic function is normal. The visually estimated ejection fraction is between 65-70%. - Severe biatrial enlargement. - There is moderate tricuspid valve regurgitation. - Moderate pulmonary hypertension is present. Findings Left Ventricle Normal left ventricular cavity size. There is mildly increased left ventricular wall thickness. The left ventricular systolic function is normal. The visually estimated ejection fraction is between 65-70%. There is no evidence of regional wall motion abnormalities. Diastolic function is indeterminate on the basis of available data. LV peak -17.1%; unclear if variable due to atrial fibrillation. Right Ventricle Mildly increased right ventricular cavity size. There is moderately decreased right ventricular systolic function. Atria Severe biatrial enlargement. Aortic Valve There is a normal trileaflet aortic valve. There is no aortic valve stenosis. There is no aortic valve regurgitation. Mitral Valve There is mild mitral annular calcification. There is mild mitral valve regurgitation. There is no mitral valve stenosis. Pulmonic Valve The pulmonic valve is likely normal. Tricuspid Valve Normal tricuspid valve structure. There is moderate tricuspid valve regurgitation. Moderate pulmonary hypertension is present. Great Vessels The asc aorta is normal in size. Small plaque is seen in the sinuses of Valsalva. Venous The inferior vena cava is mildly dilated and collapses greater than 50% with inspiration. Pericardium/Pleural There is no evidence of pericardial effusion. Prior Study Comparison No significant change compared to prior study dated: 11/21/2022. Measurements 2D Linear Measurements IVSd: 1.05 0.6-0.9/0.6-1.0 cm LVIDd: 4.61 3.9-5.3/4.2-5.9 cm LVIDd Index: 2.85 2.4-3.2/2.2-3.1 cm/m2 LVIDs: 3.27 2.0-3.6 cm LVPWd: 1.03 0.7-1.1 cm LA Diam: 4.80 2.7-3.8/3.0-4.0 cm LAIDs Index: 2.96 1.5-2.3 cm/m2 LV Mass: 209.50 67-162/88-224 g LV Mass Index: 129.32 43-95/49-115 g/m2 LVOT Diam: 2.00 3.0+(-)1.3 cm 2D Systolic Function EF 4C: 64.00 >55% EF 2C: 70.40 >55% EF BiP: 67.20 >55% Mitral Valve MV VTI: 0.35 MV Pk Forrest: 1.38 MV Mn Forrest: 0.67 MV Pk Grad: 8.00 MV Mn Grad: 3.00 MV Pk E: 1.33 MV PK A: 0.42 MV Decel Time: 228.00 E/A: 3.20 E'Lateral: 14.00 E'Medial: 8.88 E/E' Med: 15.00 E/E' Lat: 9.50 PHT: 67.00 MVA PHT: 3.28 MVA Continuity: 2.16 Decel Gooding: 5.86 Aortic Valve AoV Pk Forrest: 1.57 AoV Mn Forrest: 1.11 AoV VTI: 0.38 AoV Pk Grad: 10.00 Aov Mn Grad: 6.00 KAITLIN Cont.VTI: 2.02 LVOT LVOT Pk Forrest: 1.08 LVOT Mn Forrest: 0.72 LVOT VTI: 0.24 LVOT Pk Grad: 5.00 LVOT Mn Grad: 2.00 LVOT Diam: 2.00 LVOT Area: 3.14 Diastolic Function MV Pk E: 1.33 MV Pk A: 0.42 E/A: 3.20 E'Medial: 8.88 E/E' Med: 15.00 E' Laterial: 14.00 E/E' Lat: 9.50 Right Ventricle TAPSE (mm): 12.40 TVS' Forrest: 7.29 Tricuspid Valve TR Pk Forrest: 3.58 TR Pk Grad: 51.00 RA Press: 8.00 RVSP: 59.00 Great Vessels Aorta Sinus of Valsalva: 3.20 2.0-3.5 cm Ao Asc: 3.10 2.1-3.4 cm Pulmonary Valve PV Pk Forrest: 0.91 Peak PV Grad: 3.00 Updated in Other Vendor System with Status of Final Juarez Coreas MD electronically signed on 11/18/2023 12:35:16 PM with status of Final
== END ==
LOC: HO.CARD 08:41
PROVIDERS: PCP Internal Medicine; Visit Provider Internal Medicine
DX: I25.10 Atherosclerotic heart disease of native coronary artery without angina pectoris (principal); I42.9 Cardiomyopathy, unspecified
CPT/HCPCS: 93306

== ENCOUNTER → 2023-11-17 08:44 | Outpatient (BNV) | payer MEDICARE, SELFPAY | PROVIDERS: PCP Internal Medicine; Visit Provider Internal Medicine | DX: I36.1 Nonrheumatic tricuspid (valve) insufficiency (principal); I34.0 Nonrheumatic mitral (valve) insufficiency; I34.81 Nonrheumatic mitral (valve) annulus calcification; I51.7 Cardiomegaly | CPT/HCPCS: 93306; 93356 ==

== ENCOUNTER 2023-12-08 13:10 | Outpatient (AMB) | payer MEDICARE, SELFPAY ==
[2023-12-08 13:13] VITALS: BP 128/60; PULSE 88
--- NOTE | 2023-12-08 13:13 | MHC.OFFVIS ---
Vital Signs 12/08/23 13:13 Height 5 ft 4 in BMI Reason not done Patient refused/unable BP 128/60 Blood Pressure Location Lt brachial Position Sitting Pulse 88 Intake Visit Reasons: r/s 11/27/23 6 mos followup Career Services Director Required: No Accompanied by: Self / Same As Patient Allergies atorvastatin Adverse Reaction (Intermediate, Verified 10/17/23 10:01) Gastrointestinal Upset lovastatin Adverse Reaction (Intermediate, Verified 10/17/23 10:01) Gastrointestinal Upset Medication List - Last Reconciled 12/08/23 by Juarez Coreas MD acetaminophen 1,000 mg (2 x 500 mg) PO Q6H PRN albuterol sulfate 90 mcg/actuation 2 puffs inhalation Q6H PRN amlodipine 10 mg PO DAILY apixaban (Eliquis) 5 mg PO BID fluoxetine 10 mg PO DAILY levothyroxine 50 mcg PO DAILY lorazepam 0.5 mg PO DAILY PRN pembrolizumab 200 mg IV Q3W rosuvastatin 40 mg PO DAILY umeclidinium-vilanterol 62.5-25 mcg/actuation (Anoro Ellipta) 1 ea inhalation DAILY HPI Comments Details: Aneta returns for follow-up regarding atrial fibrillation, remote history of ASD repair. No known coronary disease, myocardial infarction. There is a history of bilateral carotid endarterectomy. She also has lung cancer and sees Oncology. Since last seen, she states she is generally doing good. No specific complaints like angina or in fact anything cardiac sounding. [facility] [place] Medical History (Updated 08/07/23 @ 14:36 by Yamile Hearn MD) Tubular adenoma Tubulovillous adenoma Annual physical exam Abnormal myocardial perfusion study Atrial septal defect Persistent atrial fibrillation COPD (chronic obstructive pulmonary disease) Osteoporosis Tibia fracture Cancer, skin, squamous cell Anxiety Hypothyroid High cholesterol Surgical History Hx of bilateral cataract extraction History of esophagogastroduodenoscopy (EGD) H/O colonoscopy Status post bilateral carotid endarterectomy Status post cardiac surgery Family History Maternal Aunt Cervical cancer Social History Household Members: Significant Other Housing: House Are you a primary clinical care coordinator to a significant other at home: No Alcohol intake: current Alcohol intake frequency: does not drink Patient Tobacco Use Status: Former Tobacco user Tobacco use type: Cigarette e-Cigarette/Vaping Use: Never Used Advance Directives Date on File: 04/04/20 service: No Current occupational status: retired Cognitive needs: No Hearing needs: No Vision needs: Yes Review of Systems Const Denies chills, Denies fatigue, Denies fever(s), Denies weight gain and Denies weight loss ENT Denies dizziness Card Denies chest pain, Denies leg edema, Denies lightheadedness, Denies palpitations, Denies dyspnea on exertion, Denies orthopnea and Denies other Resp Denies cough and Denies dyspnea on exertion GI Denies hematochezia and Denies change in stool character Musc Denies abnormal gait, Denies muscle weakness, Denies numbness, Denies radiating pain into limb and Denies tingling Neuro Denies abnormal gait, Denies dizziness, Denies numbness and Denies tingling Endo Denies fatigue and Denies palpitations Physical Exam Vital Signs: Last Vital Signs Pulse 88 12/08/23 13:13 BP 128/60 12/08/23 13:13 Const General: comfortable and no acute distress Orientation/consciousness: patient oriented x3 HEENT Other: Unremarkable Head: Yes normal to inspection Neck Neck: Yes normal visual inspection Chest Chest palpation & inspection: normal inspection of the chest Resp Auscultation: clear to auscultation bilaterally Cardio Palpation: normal PMI Heart sounds: S1 normal heart sound present, S2 normal heart sound present, no gallops, Murmur heart sound present systolic II/ and at the right sternal border and no rubs GI Palpation (GI): Soft to palpation Back/Spine/Pelvis Other: unremarkable Skin General skin exam: no rashes or lesions noted Neuro General: patient oriented x3 Extrem General: Yes normal to inspection Psych Mental Status: mental status grossly normal Office Procedures EKG Details: EKG with atrial fibrillation at a rate of 73/Min; incomplete right bundle-branch block pattern and can not exclude old anterior infarct. Similar to prior. [id number], Complete Assessment & Plan Assessment & Plan (1) Persistent atrial fibrillation: Code(s): I48.19 - Other persistent atrial fibrillation Category: Medical Plan: Not on rate control medications. Stable. Continue Eliquis. (2) Status post atrial septal defect repair: Code(s): Z87.74 - Personal history of (corrected) congenital malformations of heart and circulatory system Category: Surgical Plan: Remote history. No recent concerns. (3) Abnormal myocardial perfusion study: Code(s): R94.39 - Abnormal result of other cardiovascular function study Category: Medical Plan: Prior myocardial perfusion imaging showed possible mild ischemia in the distal lateral wall and apex. Clinically, she has got absolutely no angina. May remain on statins. Last LDL 60 mg/dL. With diagnosis of malignancy, likely conservative unless any overt symptoms. (4) Non-rheumatic tricuspid valve insufficiency: Code(s): I36.1 - Nonrheumatic tricuspid (valve) insufficiency Category: Medical Plan: On the recent echocardiogram, moderate tricuspid regurgitation with moderate pulmonary hypertension. No symptoms or signs of right heart failure. (5) Status post bilateral carotid endarterectomy: Comment: right 07/2006 & left 06/2006 Code(s): Z98.890 - Other specified postprocedural states Category: Surgical Plan: Carotid Doppler-07/2023-moderate stenosis left internal carotid; minimal on the right side. Due to malignancy history, likely conservative care only. (6) Essential hypertension: Code(s): I10 - Essential (primary) hypertension Category: Medical Plan: Stable. Plan Follow-up in 6 months. She will call with concerns. Coding Level of Care Code Est Pt Level 4 (84634) Diagnoses Persistent atrial fibrillation I48.19 Status post atrial septal defect repair Z87.74 Abnormal myocardial perfusion study R94.39 Non-rheumatic tricuspid valve insufficiency I36.1 Status post bilateral carotid endarterectomy Z98.890 Essential hypertension I10 CPT Codes EKG - CPT: [id number]-[id number], Complete ([id number])
== END 2023-12-08 13:34 | disposition home or self-care (01) ==
PROVIDERS: PCP Internal Medicine; Visit Provider Internal Medicine
DX: I48.19 Other persistent atrial fibrillation (principal); Z87.74 Personal history of (corrected) congenital malformations of heart and circulatory system; R94.39 Abnormal result of other cardiovascular function study; I36.1 Nonrheumatic tricuspid (valve) insufficiency; Z98.890 Other specified postprocedural states; I10 Essential (primary) hypertension
CPT/HCPCS: 93010; 99214

== ENCOUNTER → 2023-12-08 13:10 | Outpatient (BNVA) | payer MEDICARE, SELFPAY | PROVIDERS: PCP Internal Medicine; Visit Provider Internal Medicine | DX: I10 Essential (primary) hypertension (principal); I36.1 Nonrheumatic tricuspid (valve) insufficiency; I48.19 Other persistent atrial fibrillation; R94.39 Abnormal result of other cardiovascular function study; Z98.890 Other specified postprocedural states; Z87.74 Personal history of (corrected) congenital malformations of heart and circulatory system | CPT/HCPCS: 93005; 99212 ==

== ENCOUNTER 2024-02-05 09:11 | Outpatient (AMB) | payer MEDICARE, SELFPAY ==
[2024-02-05 09:24] VITALS: BP 122/56; PULSE 89; O2SAT 100; BMI 21.3
--- NOTE | 2024-02-05 09:24 | MHC.PC.OV ---
Vital Signs 02/05/24 09:24 Height 5 ft 4 in Weight 124 lb BMI 21.3 BP 122/56 L Blood Pressure Location Lt brachial Position Sitting Pulse 89 Pulse Source Pulse Oximeter Pulse Oximetry (%) 100 Oxygen Delivery Method Room Air Intake Visit Reasons: 6m Follow-up Intake Note: Pt is here today for 6 months follow up visit. Allergies atorvastatin Adverse Reaction (Intermediate, Verified 02/05/24 09:27) Gastrointestinal Upset lovastatin Adverse Reaction (Intermediate, Verified 02/05/24 09:27) Gastrointestinal Upset Tobacco use date assessed: 02/05/24 Fall risk assessment: No Falls in past year Last assessed Fall Risk: 02/05/24 Dental Screening Dental Screen Date: 02/05/24 Did you have a dental visit in the last 12 months?: Yes Did you have a dental problem in the last 6 months where you did not have access to dental care?: No Was dental information given to patient?: Patient has dentist HPI 6m Follow-up HPI Details Patient presents for the follow-up on hypertension hyperlipidemia COPD hypothyroidism metastatic lung CA improving on pembrolizumab. Patient has been physically active walking daily for at least 2 miles. [facility] Medical History (Updated 02/05/24 @ 09:50 by Yamile Hearn MD) Tubular adenoma Tubulovillous adenoma Annual physical exam Abnormal myocardial perfusion study Atrial septal defect Persistent atrial fibrillation COPD (chronic obstructive pulmonary disease) Tibia fracture Cancer, skin, squamous cell Anxiety Hypothyroid High cholesterol Surgical History Hx of bilateral cataract extraction History of esophagogastroduodenoscopy (EGD) H/O colonoscopy Status post bilateral carotid endarterectomy Status post cardiac surgery Family History Maternal Aunt Cervical cancer Social History Household Members: Significant Other Housing: House Are you a primary customer care professional to a significant other at home: No Alcohol intake: current Alcohol intake frequency: does not drink Patient Tobacco Use Status: Former Tobacco user Tobacco use type: Cigarette e-Cigarette/Vaping Use: Never Used Advance Directives Date on File: 04/04/20 service: No Current occupational status: retired Cognitive needs: No Hearing needs: No Vision needs: Yes Questionnaire Thrive Questionnaire Date Thrive assessed: 04/22/23 AUDIT C Alcohol Use Questionnaire (AUDIT-C) 1. How often do you have a drink containing alcohol?: Never 3. How often do you have six or more drinks on one occasion?: Never Total Score: 0 SHADY-7 AMB Questionnaire SHADY-7 Date SHADY - 7 assessed: 04/22/23 Source: Developed by Drs. Devang Jordan, Terra Arias, Irvin Gonzalez and colleagues, with an educational kristel from [employer]. Review of Systems Const All systems reviewed & are unremarkable except as noted in HPI and below ENT Reports no additional complaints Card Reports no additional complaints Resp Reports no additional complaints GI Reports no additional complaints Reports no additional complaints Physical exam (Primary Care) Vital Signs: Last Vital Signs Pulse 89 02/05/24 09:24 BP 122/56 L 02/05/24 09:24 Pulse Ox 100 02/05/24 09:24 Oxygen Delivery Method Room Air 02/05/24 09:24 BMI result Body Mass Index 21.3 Tobacco/Smoking Status: Tobacco use Status Tobacco use date assessed 02/05/24 02/05/24 09:29 Patient Tobacco Use Status Former Tobacco user 02/05/24 09:26 Tobacco use type Cigarette 02/05/24 09:26 e-Cigarette/Vaping Use Never Used 02/05/24 09:26 Thrive Assessment: Date of Thrive Assessment Date Thrive assessed 04/22/23 02/05/24 09:26 Const General: no acute distress HENMT Head: Yes normal to inspection Mouth: Normal oral and palatal mucosa present Neck Neck: Yes no lymphadenopathy and Yes supple Resp Effort & Inspection: normal respiratory effort Auscultation: diminished lung sounds Cardio Rhythm: regular rhythm Heart sounds: S1 normal heart sound present and S2 normal heart sound present GI Inspection: Yes normal to inspection Palpation (GI): Soft to palpation Coding Level of Care Code Est Pt Level 4 (64577) Complex EM visit Add On G2211 Diagnoses Non-small cell cancer of right lung C34.91 HTN (hypertension) I10 Abnormal myocardial perfusion study R94.39 Persistent atrial fibrillation I48.19 COPD (chronic obstructive pulmonary disease) J44.9 Hypothyroid E03.9 Assessment & Plan Assessment & Plan (1) Non-small cell cancer of right lung: Comment: PET scan 10/11 showed mets to cervical, mediastinal LNs, ? verterbral body L1, f/u Code(s): C34.91 - Malignant neoplasm of unspecified part of right bronchus or lung Category: Medical Plan: Follow-up with [facility] (2) HTN (hypertension): Code(s): I10 - Essential (primary) hypertension Category: Medical Plan: Continue current medications (3) Abnormal myocardial perfusion study: Comment: Asymptomatic ,medically treated, follow-up with [facility] Code(s): R94.39 - Abnormal result of other cardiovascular function study Category: Medical Plan: Continue current medications and regular physical activity (4) Persistent atrial fibrillation: Code(s): I48.19 - Other persistent atrial fibrillation Category: Medical Plan: Anticoagulated on Eliquis (5) COPD (chronic obstructive pulmonary disease): Code(s): J44.9 - Chronic obstructive pulmonary disease, unspecified Category: Medical Plan: Controlled on Anoro (6) Hypothyroid: Code(s): E03.9 - Hypothyroidism, unspecified Category: Medical Plan: Stable on levothyroxine
== END 2024-02-05 09:48 | disposition home or self-care (01) ==
PROVIDERS: PCP Internal Medicine; Visit Provider Internal Medicine
DX: I48.19 Other persistent atrial fibrillation (principal); C34.91 Malignant neoplasm of unspecified part of right bronchus or lung; J44.9 Chronic obstructive pulmonary disease, unspecified; I10 Essential (primary) hypertension; R94.39 Abnormal result of other cardiovascular function study; E03.9 Hypothyroidism, unspecified

== ENCOUNTER → 2024-02-05 09:11 | Outpatient (BNVA) | payer MEDICARE, SELFPAY | PROVIDERS: PCP Internal Medicine; Visit Provider Internal Medicine | DX: C34.91 Malignant neoplasm of unspecified part of right bronchus or lung (principal); I10 Essential (primary) hypertension; R94.39 Abnormal result of other cardiovascular function study; I48.19 Other persistent atrial fibrillation; J44.9 Chronic obstructive pulmonary disease, unspecified | CPT/HCPCS: 99212 ==

== ENCOUNTER 2024-03-11 10:21 | Outpatient (REF) | payer MEDICARE, SELFPAY ==
--- NOTE | ~2024-03-11 | MM_ITS ---
EXAMINATION: MM SCREENING DIGITAL BREAST TOMOSYNTHESIS, BILATERAL CLINICAL INFORMATION: Screening. Asymptomatic. COMPARISON: Mammography: Comparison is made with available priors TECHNIQUE: Digital breast mammography with tomosynthesis is performed in both the craniocaudal and mediolateral oblique views along with computer-aided detection (CAD). FINDINGS: There are scattered areas of fibroglandular density (ACR BI-RADS breast composition Category b). There are no significant masses, abnormal calcifications, or other abnormalities. MM/MM tomosynthesis screening BI IMPRESSION: No mammographic evidence of malignancy. ASSESSMENT: BI-RADS BI-RADS 1 - Negative RECOMMENDATION: Routine annual mammography screening. 1 year F/U This examination should not preclude the clinical evaluation of a suspicious palpable abnormality. This patient's information was entered into a reminder system with a target due date for their next mammogram. Electronically signed by: Tootie Rust DO 03/22/2024 09:30 AM J[facility]
== END 2024-03-11 10:22 | disposition home or self-care (01) ==
LOC: HO.MAMMO 10:21
PROVIDERS: PCP Internal Medicine; Visit Provider Internal Medicine
DX: Z12.31 Encounter for screening mammogram for malignant neoplasm of breast (principal)
CPT/HCPCS: 77063; 77067

== ENCOUNTER → 2024-03-11 11:00 | Outpatient (BNV) | payer MEDICARE, SELFPAY | PROVIDERS: PCP Internal Medicine; Visit Provider Internal Medicine | DX: Z12.31 Encounter for screening mammogram for malignant neoplasm of breast (principal) | CPT/HCPCS: 77063; 77067 ==

== ENCOUNTER 2024-04-06 08:58 | Outpatient (REF) | payer MEDICARE, SELFPAY ==
--- NOTE | ~2024-04-06 | PE_ITS ---
EXAMINATION: Fluorine-18 FDG PET/CT Scan CLINICAL INDICATION: Subsequent treatment management. Non-small cell cancer of the right lung, assess response to treatment. PROCEDURE: 62 minutes following the intravenous administration of 15.9 mCi of fluorine 18 FDG, images from the base of the skull to the mid thighs were obtained using a combined PET/CT scanner with CT scan based attenuation correction. No oral contrast was administered. No intravenous contrast was administered. Transverse, coronal, sagittal, and volume reconstruction projections were obtained. The patient's blood glucose as determined by a finger stick, was 94 mg/dl immediately prior to injection. Total CT exam dose-length product 425.37 mGy-cm * These CT images were obtained using dose optimization techniques as appropriate, variously including the following: Automated exposure control * Adjustment of mA and/or kV according to patient size (this includes techniques or standardized protocols for targeted exams where dose is matched to indication/reason for exam; i.e. extremities or head) * Use of iterative reconstruction technique COMPARISON: Several prior FDG PET/CT scans are available for comparison, the most recent dated 08/05/2023 and the baseline dated 11/05/2022. FINDINGS: (Slice numbers described in this report are numbered superiorly to inferiorly with slice #1 in the head) NECK AND VISUALIZED HEAD: No foci of abnormal FDG activity are noted. The distribution of FDG activity is physiological. There is no cervical lymphadenopathy. THORAX: A spiculated right upper lobe pulmonary nodule appears similar to the 08/05/2023 most recent prior PET/CT scan, now showing SUVmax 1.9, versus SUVmax 1.6 previously. This now measures 1.8 x 1.7 cm in largest transverse dimensions, not significantly changed from the previous measurements of 1.6 x 1.6 cm. This remains much less intensely FDG avid than on the baseline 11/05/2022 PET/CT scan when this showed SUVmax 10.6 and this has also significantly decreased in size on the CT images since 11/05/2022.No additional foci of abnormal FDG activity or suspicious pulmonary nodules are present in the chest. There is some minimal scarring or atelectasis in the lung bases bilaterally, slightly more prominently on the right with no associated abnormal FDG activity. There is no pleural or pericardial fluid, or pneumothorax. There is no mediastinal, supraclavicular, or axillary lymphadenopathy. ABDOMEN AND PELVIS: There are no foci of abnormal FDG activity in the abdomen or pelvis. Mild FDG activity is present throughout the gastrointestinal tract without a suspicious focal component. There is diverticulosis without evidence of diverticulitis. The hollow viscera are otherwise unremarkable. The liver, gallbladder, and spleen are unremarkable. Multiple bilateral hypodense renal cysts are present, more extensively on the right, unchanged from the prior study and markedly FDG photopenic. The kidneys are otherwise unremarkable. The adrenal glands and pancreas are unremarkable. The pelvic organs are unremarkable. There is no retroperitoneal, mesenteric, pelvic or inguinal lymphadenopathy. MUSCULOSKELETAL: There is weak FDG activity in the L1 vertebral body, SUVmax 2.5, slice 117/267. This is similar to the 08/05/2023 study when this showed SUVmax 2.3, but much less and the baseline 11/05/2022 study when this showed SUVmax 6.0. There is a sclerotic focus at this site which is unchanged from the fourth 2023 study measuring 1.7 cm. There are no additional foci of abnormal FDG activity in the osseous structures. Poststernotomy changes with multiple sternal wires are noted with no associated abnormal FDG activity. There are no additional suspicious sclerotic or lytic lesions present or additional osseous foci of abnormal FDG activity. VASCULAR: Diffuse vascular calcifications including coronary are noted. Reference SUVmax Levels: Mediastinal Blood Pool: 2.2, Slice 78/267 Liver: 3.0, Slice 115/267 PET/PET CT fusion skull to thigh IMPRESSION: 1. Stable malignant disease in a right upper lobe pulmonary nodule which remains markedly improved in both size and FDG avidity since the baseline 11/05/2022 PET/CT scan. 2. Mild FDG activity in the L1 vertebral body is also much less intensely FDG avid than on the baseline 11/05/2022 PET/CT scan, and this abnormality remains stable when compared to the most recent 08/05/2023 study. This probably represents a healed metastasis, as the FDG avidity is similar to the other vertebral bodies. 3. There are no additional abnormalities suspicious for other metastatic or malignant lesions. Diffuse vascular calcifications including coronary. Electronically signed by: Walter Koenig MD 04/13/2024 01:13 PM [facility]
== END 2024-04-06 08:59 | disposition home or self-care (01) ==
LOC: HO.PET 08:58
PROVIDERS: PCP Internal Medicine; Visit Provider Internal Medicine
DX: Z13.89 Encounter for screening for other disorder (principal)

== ENCOUNTER 2024-07-19 12:54 | Outpatient (AMB) | payer MEDICARE, SELFPAY ==
--- NOTE | 2024-07-19 13:13 | A.OFFVIS_ITS ---
Vital Signs 07/19/24 13:14 Height 5 ft 4 in Weight 124 lb BMI 21.3 BMI Reason not done Patient refused/unable BP 130/60 Blood Pressure Location Lt brachial Position Sitting Pulse 68 Pulse Source Pulse Oximeter Intake Visit Reasons: 6 mth f/up Allergies atorvastatin Adverse Reaction (Intermediate, Verified 02/05/24 09:27) Gastrointestinal Upset lovastatin Adverse Reaction (Intermediate, Verified 02/05/24 09:27) Gastrointestinal Upset Medication List - Last Reconciled 07/19/24 by Juarez Coreas MD acetaminophen 1,000 mg (2 x 500 mg) PO Q6H PRN albuterol sulfate 90 mcg/actuation 2 puffs inhalation Q6H PRN amlodipine 10 mg PO DAILY apixaban (Eliquis) 5 mg PO BID fluoxetine 10 mg PO DAILY levothyroxine 50 mcg PO DAILY lorazepam 0.5 mg PO DAILY PRN pembrolizumab 200 mg IV Q3W rosuvastatin 40 mg PO DAILY umeclidinium-vilanterol 62.5-25 mcg/actuation (Anoro Ellipta) 1 ea inhalation DAILY HPI Comments Details: Aneta returns for follow-up regarding atrial fibrillation, history of ASD repair another concerns. No known coronary disease, myocardial infarction but there is a history of bilateral carotid endarterectomy. She also has lung cancer and sees Oncology. Overall, she states she feels good. No new concerns. No cardiac symptoms sp ecifically. [facility] Medical History (Updated 02/05/24 @ 09:50 by Yamile Hearn MD) Tubular adenoma Tubulovillous adenoma Annual physical exam Abnormal myocardial perfusion study Atrial septal defect Persistent atrial fibrillation COPD (chronic obstructive pulmonary disease) Tibia fracture Cancer, skin, squamous cell Anxiety Hypothyroid High cholesterol Surgical History Hx of bilateral cataract extraction History of esophagogastroduodenoscopy (EGD) H/O colonoscopy Status post bilateral carotid endarterectomy Status post cardiac surgery Family History Maternal Aunt Cervical cancer Social History Household Members: Significant Other Housing: House Are you a primary palliative care specialist to a significant other at home: No Alcohol intake: current Alcohol intake frequency: does not drink Patient Tobacco Use Status: Former Tobacco user Tobacco use type: Cigarette e-Cigarette/Vaping Use: Never Used Advance Directives Date on File: 04/04/20 service: No Current occupational status: retired Cognitive needs: No Hearing needs: No Vision needs: Yes Review of Systems Const Denies weakness ENT Denies dizziness Card Denies chest pain, Denies chest pain with activity, Denies syncope, Denies rapid heart rate, Denies pedal edema, Denies edema, Denies leg edema, Denies lightheadedness, Denies palpitations, Denies dyspnea, Denies dyspnea on exertion and Denies orthopnea Resp Denies cough, Denies dyspnea and Denies dyspnea on exertion GI Denies hematochezia and Denies change in stool character Musc Denies abnormal gait, Denies muscle cramps, Denies muscle weakness, Denies numbn ess, Denies radiating pain into limb and Denies tingling Neuro Denies abnormal gait, Denies dizziness, Denies syncope, Denies numbness, Denies tingling and Denies weakness Endo Denies palpitations Physical Exam Vital Signs: Last Vital Signs Pulse 68 07/19/24 13:14 BP 130/60 07/19/24 13:14 BMI result Body Mass Index 21.3 Const General: comfortable and no acute distress Orientation/consciousness: patient oriented x3 HEENT Other: Unremarkable Head: Yes normal to inspection Neck Neck: Yes normal visual inspection Chest Chest palpation & inspection: normal inspection of the chest Resp Auscultation: clear to auscultation bilaterally Cardio Palpation: normal PMI Heart sounds: S1 normal heart sound present, S2 normal heart sound present, no gallops, Murmur heart sound present systolic II/ and no rubs GI Palpation (GI): Soft to palpation Back/Spine/Pelvis Other: unremarkable Skin General skin exam: no rashes or lesions noted Neuro General: patient oriented x3 Extrem General: Yes normal to inspection Psych Mental Status: mental status grossly normal Assessment & Plan Assessment & Plan (1) Persistent atrial fibrillation: Code(s): I48.19 - Other persistent atrial fibrillation Category: Medical Plan: Not on rate control medications. Continue Eliquis. In the prior EKG from last year, atrial fibrillation with a rate of 73/Min. (2) Status post atrial septal defect repair: Code(s): Z87.74 - Personal history of (corrected) congenital malformations of heart and circulatory system Category: Surgical Plan: Remote history. No recent concerns. (3) Abnormal myocardial perfusion study: Comment: Asymptomatic ,medically treated, follow-up with [facility] Code(s): R94.39 - Abnormal result of other cardiovascular function study Category: Medical Plan: Prior myocardial perfusion imaging showed possible mild ischemia in the distal lateral wall and apex. Clinically, she has got absolutely no angina. May remain on statins. Last LDL 60 mg/dL. With comorbidities and malignancy history, recommend conservative care. (4) Non-rheumatic tricuspid valve insufficiency: Code(s): I36.1 - Nonrheumatic tricuspid (valve) insufficiency Category: Medical Plan: On the echocardiogram, moderate tricuspid regurgitation with moderate pulmonary hypertension. No symptoms or signs of right heart failure. (5) Status post bilateral carotid endarterectomy: Comment: right 07/2006 & left 06/2006 Code(s): Z98.890 - Other specified postprocedural states Category: Surgical Plan: Carotid Doppler-07/2023-moderate stenosis left internal carotid; minimal on the right side. Repeat ultrasound is pending at this time. Most likely conservative care only. (6) Essential hypertension: Code(s): I10 - Essential (primary) hypertension Category: Medical Plan: Stable. Plan Follow-up in 6 months. She will call with any interim concerns. Coding Level of Care Code Est Pt Level 4 (87093) Complex EM visit Add On G2211 Diagnoses Persistent atrial fibrillation I48.19 Status post atrial septal defect repair Z87.74 Abnormal myocardial perfusion study R94.39 Non-rheumatic tricuspid valve insufficiency I36.1 Status post bilateral carotid endarterectomy Z98.890 Essential hypertension I10
[2024-07-19 13:14] VITALS: BP 130/60; PULSE 68; BMI 21.3
--- OUTSIDE RECORDS SUMMARY | 2024-07-19 14:28 | XMS_ITS ---
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 Name Role Phone Yamile Hearn MD Primary Care Provider Edmar Rubin Unavailable [phone] Allergies No Known Allergies REASON FOR VISIT At Risk Footcare, Painful Nail(s) aggrevated by shoes and causing difficulty standing/walking., Painful Toe(s) Medications Medication SIG (Take, Route, Frequency, Duration) Notes Start Date End Date Status Betamethasone Dipropionate Aug 0.05 % External for 10 Unknown Jantoven 5 MG Oral for 90 Unkn own Warfarin Sodium 5 MG 1 tablet Orally Onc e a day Unknown Vit K07-Heyubzfgri-Enag-Jmeb Unk nown Simvastatin 40 MG Oral for 90 Unknown FLUoxetine HCl 10 MG 1 capsule Orally On ce a day Active Eliquis 5 MG as directed Orally Active amLODIPine Besylate 10 MG 1 tablet Orall y Once a day Active Levothyroxine Sodium 50 MCG Oral for 30 Active FLUoxetine HCl 10 MG Oral for 90 Active Rosuvastatin Calcium 40 MG 1 tablet Oral ly Once a day Active Social History Tobacco Use: Social History Observation Description Date Details (start date - stop date) Never Smoker NA - NA Alcohol Screen Question Answer Notes Did you have a drink containing alcohol in the p ast year? Yes Points 0 Interpretation Negative Tobacco use other than smoking: Question Answer Notes Are you an other tobacco user? No Tobacco Control (Standard) Question Answer Notes Tobacco use: Nonsmoker Additional Findings: Tobacco non-user Current no nsmoker Problems Problem Type SNOMED Code ICD Code Onset Dates Problem Status W/U Status Risk Notes Problem Bilateral atherosclerosis of arteries of lower limbs (disorder) (87910967851039704 ) 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 (I70.203) Active confirmed Q7(A), Q8(2B), Q9(1B,2 C) Problem Acquired hammer toe of right foot (6428289899733928) Other hammer toe(s) (acquired), right foot (M20.41) Active confirmed Problem Localized, primary osteoarthritis of the ankle and/or foot (170104839) Arthritis of joint of lesser toe, right (M19.071) Active confirmed Vital Signs Height 5 ft 4 in in 06/29/2024 Weight 120 lbs 06/29/2024 BMI 20.6 kg/m2 06/29/2024 Blood pressure systolic 130 mm Hg 06/30/19 25 Blood pressure diastolic 60 mm Hg 025 Procedures Procedure Date Ordered Date Performed Result Body Sit e 09289-GOWLWYA NAIL, 1-5 06/29/2024 N/A 89858-ZYNU SKIN LESIONS, 2 TO 4 06/29/2024 N/A [id number] DYSTROPHIC NAILS ANY # 06/29/2024 N/A Encounters Encounter Location Date Provider Diagnosis [facility] [address] [place] [address] 06/29/2024 Edmar Maier 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 I70.203 ; Tinea unguium B35.1 ; Pain in right toe(s) M79.674 ; Pain in left toe(s) M79.675 ; Other hammer toe(s) (acquired), right foot M20.41 and Arthritis of joint of lesser toe, right M19.071 Assessments Encounter Date Diagnosis (ICD Code) Assessment Notes Treatment Notes Treatment Clinical Notes Section Notes 06/29/2024 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 (ICD-10 - I70.203) Q7(A), Q8(2B), Q9(1B,2C) 06/29/2024 Tinea unguium (ICD-10 - B35.1) 06/29/2024 Pain in right toe(s) (ICD-10 - M79.674) 06/29/2024 Pain in left toe(s) (ICD-10 - M79.675) 06/29/2024 Other hammer toe(s) (acquired), right foot (ICD-10 - M20.41) 06/29/2024 Arthritis of joint of lesser toe, right (ICD-10 - M19.071) Plan Of Treatment Pending Test Test Name Order Date X ray : Foot, right 3V 06/29/2024 26182-JPAEJNY NAIL, 1-5 06/29/2024 51865-MUGV SKIN LESIONS, 2 TO 4 06/30/19 25 K0684-UFOFMJIQ DYSTROPHIC NAILS ANY # Next Appt Details Follow Up: prn, Reason: Provider Name:Edmar Lainez Livier , 10/01/2024 09:00:00 AM, [address] [place] [address], [phone], Procedure Notes * Category Sub-Category Detail Notes Keratoma Treatment Parring or Cutting o f Benign Hyperkeratotic Lesion(s) (-56) 2-4 Lesions - Due to the at risk nature of the patients medical condition as documented in the exam findings, performance of this keratoderma treatment is medically necessary as its management by an unskilled/untrained nonprofessional would put this patients foot and overall health at risk. Therefore, the benign hyperkeratotic lesions, ( 4 ) in total, locations as stated and described in the exam ( Medial, IPJ, TA, Medial, DIPJ, T9, Plantar Heel(s), B/L ), were pared, and/or cut utilizing a sterile 15 blade, tissue nippers, and/or power dremel instrumentation by the physician of record - 92549, Q8 Debride Nails 1-5 Procedure: Due to the cli nical pathology outlined in the exam findings, performance of this nail treatment is medically necessary as its management by an unskilled/untrained nonprofessional would put this patients foot and overall health at risk. Therefore, debridement to affected nail(s), as described in exam ( TA, T4, T5, T9 ), was performed exclusively by the physician of record to reduce/remove overall nail length, girth, thickness, subungual debris, and necrotic tissue, by manual and/or electrical means through the use of a nail nipper and/or dremel stylegrinder, to a more viable healthy nail plate or bed tissue 5 nails or fewer in number. Silver nitrate was used for any petechial bleeding as necessary. Definitive antifungal treatment options, both pharmaceutical and surgical, have been reviewed and discussed with the patient. The patient solely prefers the use of intermittent/as needed professional debridement services for their nail condition and understands that additional periodic treatments may be required as necessary to maintain effective symptomatic relief - 17381 Nail Reduction Nail Reduction (-27) Trimming o f all dystrophic nails - Due to the at risk nature of the patients medical condition as documented in the exam findings, performance of this nail treatment is medically necessary as its management by an unskilled/untrained nonprofessional would put this patients foot and overall health at risk. Therefore, the dystrophic nails, in locations as stated and described in the exam ( T1, T2, T3, T6, T7, T8 ), were debrided by the phisician of record to reduce/remove overall nail length and girth, by manual and electrical means with use of a nail nipper and/or dremel, to more viable healthy nail plate or bed tissue - G0127, Q8 Progress Notes * Aneta PLATA ADOB:1940 (84 yo F)Acc No.[id number]:06/29/2024 Progress Notes Patient:?Aneta PLATA Provider:?Edmar Maier DPM :1940???Age:84 Y???Sex:Female D ate:06/29/2024 [facility] Pcp:Yamile Hearn MD Subjective: * Chief Complaints: * ???At Risk FootcarePainful N ail(s) aggrevated by shoes and causing difficulty standing/walking.Painful Toe(s) * HPI: ???At Risk footcare:?Pt States Last PCP Visit:?Date?04/26/2024 States has an appt with PCP soon - end of Jun ???Toe pain:?Nature:?tenderness.?Location:?Right foot, 5th toe.?Duration:?several weeks.?Course:?worse.?Aggravated by:?any pressure, shoes.?Treatments:?rest/alter normal daily activity, change in shoes.? * ROS:?General/Constitutional:?Nausea?denies.?Vomiting?denies.?Hunger Thirst?denies.?Loss appetite?denies.?Chills?denies, denies.?Fatigue?denies.?Fever?denies.?Night Sweats?denies.?Unexplained weight loss?denies.?Unexplained weight gain?denies.?Ophthalmologic:?Blurred vision?denies.?Red eye?denies.?HEENTM:?Dentures?admits.?Dizziness?denies.?Glasses/contacts?admits.?Retinopathy?de nies.?Blurred/double vision?denies.?TMJ?denies.?Discharge/drainage?denies.?Implants?denies.?Sore throat?denies.?Dental implants?denies.?Hard of hearing ?denies.?Difficulty chewing/swallowing/speaking?denies.?Nose bleeds?admits, denies.?Sore mouth?denies.?Swollen glands?denies.?Respiratory:?On Oxygen?denies.?Pneumonia/pleurisy?denies.?Bronchitis?admits, denies.?Emphysema?denies.?Coughing?denies.?Cough blood?denies.?Shortness of breath?admits, denies.?Wheezing?denies.?Cardiovascular:?Pacemaker?denies.?MVP?denies.?WPW?denies.?CHF?denies.?Heart attack?denies, denies.?Septal defect?denies.?Rapid beat?denies, denies.?Chest pain ?denies.?Atrial Fib.?admits.?Murmur/Palpitations?denies, denies.?Gastrointestinal:?Hemorrhoids?denies.?Stomach/Abdominal pain?denies.?Dark blood stool?denies.?Irritable bowel ?denies.?Constipation?denies, denies.?Diarrhea?denies.?Vomiting?denies.?Hematology:?Swelling?denies.?Clots?denies.?Varicose Veins?denies.?Bruising?admits, on anticoagulants.?Bleeding problem?admits, on anticoagulants.?Genitourinary:?Blood urine?denies.?Frequent/Painfu/urination/bladder control?denies.?Kidney stones?denies, denies.?Infection (UTI)?denies.?Nephropathy?denies.?sex trans dis (STD)?denies.?Prostate?denies.?Musculoskeletal:?Hammertoes?admits.?Bunions?denies.?Scoliosis/kyphosis?denies.?Back Pain?denies.?Muscle Cramps/ Resting?denies.?Muscle cramps / walking?admits.?Generalized aches and pains?denies.?Weakness?denies.?Integ.:?Moore?denies.?Scars?denies.?Corns/calluses?admits.?Ingrown nails?admits.?Painful nails?admits.?Open Sores?denies.?Rashes?denies.?Neurologic:?Difficulty sleeping?denies.?Bipolar?denies.?Brain disorder?denies.?Numbness?denies.?Balance trouble?denies.?Confusion?denies.?Fainting/blackouts?denies.?Headache?denies.?Ti ngling?denies.?Tremors?denies.? * Medical History:? * Surgical History:?carotid ar funmi 2009 * Hospitalization/Major Diagno stic Procedure:?Denies Past Hospitalization * Family History:?Mother: dece ased.?Father: .? * Social History:?Tobacco Use:?Tobacco use other than smoking?Are you an other tobacco user??No ?Tobacco Control (Standard)?Tobacco use:?Nonsmoker ?Additional Findings: Tobacco non-user?Current nonsmoker ???Drugs/Alcohol:?Drugs?Have you used drugs other than those for medical reasons in the past 12 months??No ?Alcohol Screen?Did you have a drink containing alcohol in the past year??Yes ?Points?0 ?Interpretation?Negative ???Miscellaneous:?Caffeine: yes, 2-3 cups per day. ?Children: yes, 4. ?Exercise: yes, walking, yoga. ?Living with: family. ?Marital status: . ?Occupation: retired. * Medications:?TakingRosuvasta tin Calcium 40 MG Tablet 1 tablet Orally Once a day amLODIPine Besylate 10 MG Tablet 1 tablet Orally Once a day FLUoxetine HCl 10 MG Capsule 1 capsule Orally Once a day Eliquis 5 MG Tablet as directed Orally Levothyroxine Sodium 50 MCG Tablet Oral FLUoxetine HCl 10 MG Capsule Oral Taking Rosuvastatin Calcium 40 MG Tablet 1 tablet Orally Once a day Taking amLODIPine Besylate 10 MG Tablet 1 tablet Orally Once a day Taking FLUoxetine HCl 10 MG Capsule 1 capsule Orally Once a day Taking Eliquis 5 MG Tablet as directed Orally Taking Levothyroxine Sodium 50 MCG Tablet Oral Taking FLUoxetine HCl 10 MG Capsule Oral UnknownSimvastatin 40 MG Tablet Oral Warfarin Sodium 5 MG Tablet 1 tablet Orally Once a day Vit D09-Izqzhwqjpm-Kioj-Iofe Betamethasone Dipropionate Aug 0.05 % Ointment External Jantoven 5 MG Tablet Oral Medication List reviewed and reconciled with the patientUnknown Simvastatin 40 MG Tablet Oral Unknown Warfarin Sodium 5 MG Tablet 1 tablet Orally Once a day Unknown Vit I34-Fjvawvvnpm-Yzyh-Vdlx Unknown Betamethasone Dipropionate Aug 0.05 % Ointment External Unknown Jantoven 5 MG Tablet Oral Medication List reviewed and reconciled with the patient * Allergies:?N.K.D.A.yes[Aller gies Verified] Objective: * Vitals:?Ht: 5 ft 4 in, Wt:12 0, BMI: 20.6, Shoe size:7, BP:130/60mm Hg, Wt-k.43 kg. * Examination: ???Vascular: ?DP PULSES (B):?0/4, B/L.?PT PULSES (B):?0/4, B/L.?CAPILLARY FILL TIME:?delayed, all digits, B/L.?TROPHIC CONDITION-TEXTURE/ELASTICITY/TURGOR/HAIR GROWTH (B):?decreased, fragile, thin, shiny skin, with sparse to absent hair growth, B/L.?TEMPERTURE GRADIENT (C):?decreased, cool to cool, proximal to distal, B/L.?PIGMENTATION:?mottled, B/L.?EDEMA (C):?1/4, non-pitting, without aching pain, Leg(s), Ankle(s), B/L.?CLAUDICATION (C):?denies, B/L.?REST PAIN:?denies, B/L.?PARESTHESIA (C):?absent, B/L.?BURNING (C):?absent, B/L.?Nails: ?NAILS are:?Elongated, overgrown, dystrophic, lytic, greater than 3mm thick, discolored and friable with crumbly malodorous subungual debris, with pain on palpation, ( TA, T4, T5, T9 ), all other nails not described with characteristics as possessing mycosis are elongated, overgrown, and dystrophic ( T1, T2, T3, T6, T7, T8 ).?Dermatologic: ?SKIN FINDINGS:?Skin exam reveals Keratotic lesion(s) located at, Medial,?IPJ, TA, Medial, DIPJ, T9, Plantar Heel(s), B/L.?Neurological: ?SENSORY:?Neurological exam reveals intact sensorium, pain sensation normal, vibration sensation intact, pinprick sensation is normal in the lower extremities, Pt denies, anesthesia, burning, paresthesia, tingling, B/L.?Orthopedic: ?MUSCLE STRENGTH:?5/5 all groups in a symmetrical fashion, B/L.?DIGITAL DEFORMITIES:?Digital contracture, PIPJ, T9, non-reducible with WB or to push-up test, no over, nor underlapping.?FOOTWEAR:? shoe gear properties exacerbate patients foot/toe deformity.?General Examination: ?GENERAL APPEARANCE:?Reveals a pleasant, alert, well nourished, well- developed, well hydrated individual, who demonstrates proper attention to hygiene/body habitus, and is in no acute distress, Pt serves as own historian for office visit today.?ORIENTED:?person, place, and time.?X-Rays - IMAGING REPORT: ?Clinical Indication(s):? Evaluate Biomechanical Deformity.?Views:?3 views of Foot, AP, LO, MO, RIGHT??Taken by trained?Podiatric Escrow Manager (?EF ).?Findings:?mild generalized decrease in bone density.?Digits:? show asymmetrical joint space narrowing at the PIPJ consistent with clinical finding of hammertoe deformity,show exostosis of bone at distal phalanx in area of pain.?Fracture:? Negative fractures identified.? Assessment: * Assessment: 1.?Tinea unguium - B35.1???2 .?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 - I70.203 (Primary)???Specify :Q8???Notes :Q7(A), Q8(2B), Q9(1B,2C)???3.?Pain in right toe(s) - M79.674???4.?Pain in left toe(s) - M79.675???5.?Other hammer toe(s) (acquired), right foot - M20.41???Specify :Dx New problem, Prognosis Uncertain (4) Acute problem, Complicated w/ Multiple Tx Options(4)???6.?Arthritis of joint of lesser toe, right - M19.071??? Plan: * Treatment: 2.?Tinea unguium?Procedure: 66771-UQYHXRR NAIL, 1-5 3.?Pain in right toe(s)?Imaging: X ray : Foot, right 3V * Procedures:?Debride Nails 1-5:?Procedure:?Due to the clinical pathology outlined in the exam findings, performance of this nail treatment is medically necessary as its management by an unskilled/untrained nonprofessional would put this patients foot and overall health at risk. Therefore, debridement to affected nail(s), as described in exam ( TA, T4, T5, T9 ), was performed exclusively by the physician of record to reduce/remove overall nail length, girth, thickness, subungual debris, and necrotic tissue, by manual and/or electrical means through the use of a nail nipper and/or dremel stylegrinder, to a more viable healthy nail plate or bed tissue 5 nails or fewer in number. Silver nitrate was used for any petechial bleeding as necessary. Definitive antifungal treatment options, both pharmaceutical and surgical, have been reviewed and discussed with the patient. The patient solely prefers the use of intermittent/as needed professional debridement services for their nail condition and understands that additional periodic treatments may be required as necessary to maintain effective symptomatic relief - 03906.?Keratoma Treatment:?Parring or Cutting of Benign Hyperkeratotic Lesion(s)?(-56) 2-4 Lesions - Due to the at risk nature of the patients medical condition as documented in the exam findings, performance of this keratoderma treatment is medically necessary as its management by an unskilled/untrained nonprofessional would put this patients foot and overall health at risk. Therefore, the benign hyperkeratotic lesions, ( 4 ) in total, locations as stated and described in the exam ( Medial, IPJ, TA, Medial, DIPJ, T9, Plantar Heel(s), B/L ), were pared, and/or cut utilizing a sterile 15 blade, tissue nippers, and/or power dremel instrumentation by the physician of record - 06356, Q8.?Nail Reduction:?Nail Reduction?(-27) Trimming of all dystrophic nails - Due to the at risk nature of the patients medical condition as documented in the exam findings, performance of this nail treatment is medically necessary as its management by an unskilled/untrained nonprofessional would put this patients foot and overall health at risk. Therefore, the dystrophic nails, in locations as stated and described in the exam (?T1, T2, T3, T6, T7, T8?), were debrided by the phisician of record to reduce/remove overall nail length and girth, by manual and electrical means with use of a nail nipper and/or dremel, to more viable healthy nail plate or bed tissue - G0127, Q8.? * Procedure Codes:?G0127 FARSHAD ING DYSTROPHIC NAILS ANY #, Modifiers: XS , [id number] X-RAY EXAM OF RIGHT FOOT 3V, Modifiers: 26 , [id number] DEBRIDE NAIL, 1-5, Modifiers: XS 73875 TRIM SKIN LESIONS, 2 TO 4, Modifiers: XS , Q8 * Preventive Medicine:? ??Counseling:?Discussion:?-04: Office or other outpatient visit for the evaluation and management of a new patient, which required a medically appropriate history and/or examination and MODERATE level of DECISION MAKING for: 1 OR MORE CHRONIC PROBLEM(S) THATS WORSENING, 2 STABLE CHRONIC PROBLEMS, A NEWLY DIAGNOSED PROBLEM WITH UNCERTAIN PROGNOSIS, AN ACUTE COMPLICATED INJURY WITH MULTIPLE TREATMENT OPTIONS, OR AN ACUTE PROBLEM WITH ACCOMPANYING SYSTEMIC SYMPTOMS, THAT POSE(S) A MODERATE RISK OF MORBIDITY. THIS CONDITION MAY ALSO INCLUDE RX DRUG MANAGEMENT, OR A DECISON FOR MINOR SURGERY. The visit on the day of the encounter encompassed interpreting the data and educating the patient as to the nature of their condition, treatment options available according to their individual PMH, meds, allergies, and overall health/living conditions, as well as any potential risks or complications that may occur from a failure to adhere to, and participate in, the recommended course of therapy. The discussion included a complete verbal, and/or written explanation of the examination results, any x-rays taken, the proposed diagnosis, and outline of the treatment plan. A schedule for future care needs was also explained. The patient verbalized an understanding of the instructions at this time and agreed to be an active participant in their treatment. If the patient should think of any questions or concerns after the visit, I have encouraged the patient to call the office.?Digital Surgery:?We elected to try conservative treatment at the present time, due to the patients age, medical history, and circulatory constraints.?Digital Treatment:?HT- I explained to the patient the possible etiologies of Hammertoes, including genetics/foot type/shoegear/activity level/exercise routine and the risks/benefits of all the different treatment options for their pain including: No treatment at all, Rest, Ice, New/supportive/wider/deeper Shoe gear, Digital Padding/Strapping/Taping/Bracing/Gel protective sleeves, Foot/Ankle AFO Bracing, Stretching exercises, Deep Tissue Massage, Arch support/shoe inserts with splay metatarsal padding, and Custom orthoses. I insisted that any digital devices be removed daily and not worn overnight for safety. The patient is to carefully examine the toes daily for any skin irritation while using any splinting or padding device. The advantages and disadvantages of each option were discussed and the patients questions re: shoe gear, padding, custom vs prefabricated inserts, activity level, and consistency in home treatment regimens for optimal success were answered to their verbally confirmed satisfaction.?Shoe Gear Counseling:?The patient and I reviewed the types of shoes they should be wearing. My recommendation included obtaining a well-fitted shoe with a good supportive, non-foldable nor twistable sole, plenty of toe/room for the forefoot, and proper arch support. Based on todays examination, I recommended the patient look for new shoes, by having their feet professionally measured. We discussed that generally the best time of the day for a shoe fitting is the afternoon. Different shoes types and brands to best match the patients occupation and vocation were discussed. Specific brand selection will be up to the patient, their individual foot condition/deformities, and fit. The patient and I reviewed the standard new shoe break in period by wearing them for a few hours a day while checking for redness or sores as wear time is increased. The patient verbally confirmed to understanding the information discussed.? ??Screening/Special Tests:?Fall Risk?Screening:?No falls in the past year ?FALLS: Screening for Future Fall Risk?Have you had any falls with injury in the past year??No * Follow Up:?prn * Images: * Sign off status: Completed true * Provider:?Edmar Maier DPM Date:?2024 Generated for Nargis velasco/Shemar/Omaira on:?07/19/2024 02:28 PM EDT History and Physical Notes * HPI (History of Present Illness) Category Sub-Category Detail Notes Category Not es Toe pain Nature: tenderness Location: Right foot, 5th toe Duration: several weeks Course: worse Aggravated by: any pressure, shoes Treatments: rest/alter normal da patricia activity, change in shoes At Risk footcare Pt States Last PCP Visit: Date: 04/26 States has an appt with PCP soon - end of Jun Examination Category Sub-Category Detail Notes Category Not es Neurological SENSORY: Neurological exa m reveals intact sensorium, pain sensation normal, vibration sensation intact, pinprick sensation is normal in the lower extremities, Pt denies, anesthesia, burning, paresthesia, tingling, B/L Dermatologic SKIN FINDINGS: Skin exam reveal s Keratotic lesion(s) located at, Medial, IPJ, TA, Medial, DIPJ, T9, Plantar Heel(s), B/L Orthopedic FOOTWEAR EVALUATION: shoe gear p roperties exacerbate patients foot/toe deformity DIGITAL DEFORMITIES: Digital contracture , PIPJ, T9, non-reducible with WB or to push-up test, no over, nor underlapping MUSCLE STRENGTH: 5/5 all groups in a symmetrical fashion, B/L General Examination GENERAL APPEARANCE: Reveals a pleasant, alert, well nourished, well-developed, well hydrated individual, who demonstrates proper attention to hygiene/body habitus, and is in no acute distress, Pt serves as own historian for office visit today ORIENTED: person, place, and t rock Vascular DP PULSES (B): 0/4, B/L PT PULSES (B): 0/4, B/L CAPILLARY FILL TIME: delayed, all digits , B/L TEMPERTURE GRADIENT (C): decreased, cool to cool, proximal to distal, B/L TROPHIC CONDITION-TEXTURE/ELASTICITY/TURGOR/HAIR GROWTH (B): decreased, fragile, thin, shiny skin, wi th sparse to absent hair growth, B/L EDEMA (C): 1/4, non-pitting, wi thout aching pain, Leg(s), Ankle(s), B/L CLAUDICATION (C): denies, B/L REST PAIN: denies, B/L PIGMENTATION: mottled, B/L PARESTHESIA (C): absent, B/L BURNING (C): absent, B/L Nails NAILS are: Elongated, overg rown, dystrophic, lytic, greater than 3mm thick, discolored and friable with crumbly malodorous subungual debris, with pain on palpation, ( TA, T4, T5, T9 ), all other nails not described with characteristics as possessing mycosis are elongated, overgrown, and dystrophic ( T1, T2, T3, T6, T7, T8 ) X-Rays - IMAGING REPORT Findings: mild generalized decrease in bone density Fracture: Negative fractures i dentified Digits: show asymmetrical kellie int space narrowing at the PIPJ consistent with clinical finding of hammertoe deformity,show exostosis of bone at distal phalanx in area of pain Views: 3 views of Foot, AP, LO, MO, RIGHT Taken by trained Podiatric Escrow Manager ( EF ) Clinical Indication(s): Evaluate Biomech anical Deformity
--- OUTSIDE RECORDS SUMMARY | 2024-07-19 14:28 | XMS_ITS | Patient Health Record ---
[facility] Janessa с[facility]гей [place] Address [address] [place] [address] Care Team Providers Care Fountain Pen Turner Name Role Phone Yamile Hearn MD Primary Care Provider Edmar Rubin Unavailable [phone] Allergies No Known Allergies Reason For Referral No Information Medications Medication SIG (Take, Route, Frequency, Duration) Notes Start Date End Date Status Betamethasone Dipropionate Aug 0.05 % External for 10 Unknown Jantoven 5 MG Oral for 90 Unkn own Warfarin Sodium 5 MG 1 tablet Orally Onc e a day Unknown Vit D92-Mkelwoawzd-Nzgs-Iquj Unk nown FLUoxetine HCl 10 MG 1 capsule Orally On ce a day Active Eliquis 5 MG as directed Orally Active Rosuvastatin Calcium 40 MG 1 tablet Oral ly Once a day Active amLODIPine Besylate 10 MG 1 tablet Orall y Once a day Active Levothyroxine Sodium 50 MCG Oral for 30 Active FLUoxetine HCl 10 MG Oral for 90 Active Simvastatin 40 MG Oral for 90 Unknown Social History Alcohol Screen Question Answer Notes Did you have a drink containing alcohol in the p ast year? Yes Points 0 Interpretation Negative Tobacco use other than smoking: Question Answer Notes Are you an other tobacco user? No Problems Problem Type SNOMED Code ICD Code Onset Dates Problem Status W/U Status Risk Notes Problem Acquired hammer toe of right foot (5694572009153886) Other hammer toe(s) (acquired), right foot (M20.41) Active confirmed Problem Bilateral atherosclerosis of arteries of lower limbs (disorder) (95324416772975071 ) 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 (I70.203) Active confirmed Q7(A), Q8(2B), Q9(1B,2 C) Problem Localized, primary osteoarthritis of the ankle and/or foot (046476653) Arthritis of joint of lesser toe, right (M19.071) Active confirmed Vital Signs Blood pressure diastolic 60 mm Hg 06/29/2024 Height 5 ft 4 in in 06/29/2024 Blood pressure systolic 130 mm Hg 06/29/2024 Weight 120 lbs 06/29/2024 BMI 20.6 kg/m2 06/29/2024 Procedures Procedure Date Ordered Date Performed Result Body Sit e 70589-KPJJURK NAIL, 1-5 06/29/2024 N/A 92316-FAHT SKIN LESIONS, 2 TO 4 06/29/2024 N/A R5004-DGRXNPVL DYSTROPHIC NAILS ANY # 06/29/2024 N/A Encounters Encounter Location Date Provider Diagnosis [facility] [place] [address] [place] [address] 06/29/2024 Edmar Maier 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 I70.203 ; Tinea unguium B35.1 ; Pain in right toe(s) M79.674 ; Pain in left toe(s) M79.675 ; Other hammer toe(s) (acquired), right foot M20.41 and Arthritis of joint of lesser toe, right M19.071 Assessments Encounter Date Diagnosis (ICD Code) Assessment Notes Treatment Notes Treatment Clinical Notes Section Notes 06/29/2024 Tinea unguium (ICD-10 - B35.1) 06/29/2024 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 (ICD-10 - I70.203) Q7(A), Q8(2B), Q9(1B,2C) 06/29/2024 Pain in right toe(s) (ICD-10 - M79.674) 06/29/2024 Pain in left toe(s) (ICD-10 - M79.675) 06/29/2024 Other hammer toe(s) (acquired), right foot (ICD-10 - M20.41) 06/29/2024 Arthritis of joint of lesser toe, right (ICD-10 - M19.071) Plan Of Treatment Pending Test Test Name Order Date X ray : Foot, right 2V 08/11/2017 X ray : Foot, right 3V 06/29/2024 67878-UEUGHLK NAIL, 1-5 06/29/2024 48074-ZOAN SKIN LESIONS, 2 TO 4 06/30/19 25 W0862-MKSGZHRL DYSTROPHIC NAILS ANY # 50,C4815-ELJ TENDON SHEATH/LIGAMENT 0 09/10/2017 Next Appt Details Provider Name:Edmar Maier , 10/01/2024 09:00:00 AM, [address] [place], [address], Insurance Providers Payer Name Payer Address Payer Phone Subscriber Number Group Number Insured Name Patient Relationship to Insured Coverage Start Date Coverage End Date Medicare National [facility] [employer], an [employer] [address] [place] [address] [id number] Aneta Broussard Self - patient is the insured 7 [employer] [address] [place] [address] [phone] [id number] Aneta Broussard Self - patient is the insured 7 Medical (General) History Medical History History ICD Code Broken bones Skin Cancer Measles Mumps Chicken pox CAD (Cholesterol) covid-19 Depression High Blood Pressure Lung cancer A fib Surgical History Surgery Date(Month/Year) carotid artery 2010
== END 2024-07-19 13:32 | disposition home or self-care (01) ==
LOC: HO.HCS 12:54
PROVIDERS: PCP Internal Medicine; Visit Provider Internal Medicine
DX: I48.19 Other persistent atrial fibrillation (principal); Z87.74 Personal history of (corrected) congenital malformations of heart and circulatory system; R94.39 Abnormal result of other cardiovascular function study; I36.1 Nonrheumatic tricuspid (valve) insufficiency; Z98.890 Other specified postprocedural states; I10 Essential (primary) hypertension
CPT/HCPCS: 99214; G2211

== ENCOUNTER → 2024-07-19 12:54 | Outpatient (BNVA) | payer MEDICARE, SELFPAY | PROVIDERS: PCP Internal Medicine; Visit Provider Internal Medicine | DX: I48.19 Other persistent atrial fibrillation (principal); I36.1 Nonrheumatic tricuspid (valve) insufficiency; I10 Essential (primary) hypertension; R94.39 Abnormal result of other cardiovascular function study; Z87.74 Personal history of (corrected) congenital malformations of heart and circulatory system; Z98.890 Other specified postprocedural states | CPT/HCPCS: 99212 ==

== ENCOUNTER 2024-08-02 09:34 | Outpatient (REF) | payer MEDICARE, SELFPAY ==
--- NOTE | ~2024-08-02 | US_ITS ---
CLINICAL HISTORY: Z98.890 - Other specified postprocedural states US Bilateral Carotid Duplex Comparison: None Findings: Moderate plaque within the bilateral common carotid arteries. Mild plaque within the bilateral carotid bulbs. There is spectral broadening throughout. An irregular heart rhythm was documented. Peak systolic velocities: Right CCA: 93 cm/s. Right ICA: 142 cm/s. End-diastolic velocity 25.1 cm/s ICA/CCA ratio: 1.5. Right ECA: Unremarkable. Right vertebral artery flow antegrade. Left CCA: 111 cm/s. Left ICA: 211 cm/s. End-diastolic velocity 43.9 cm/s ICA/CCA ratio: 1.9. Left ECA: Unremarkable. Left vertebral artery flow antegrade. IMPRESSION: 1. There is hemodynamically significant stenosis within the bilateral internal carotid arteries. Based on the sonographic NASCET index, there is stenosis of the bilateral internal carotid arteries in the range of 50-69%. 2. There is a cardiac arrhythmia. This document has been electronically signed by: Haven Wong MD on 08/02/2024 15:19:41
--- OUTSIDE RECORDS SUMMARY | 2024-08-02 10:39 | XMS_ITS | Patient Health Record ---
[facility]essa сергей [place] Address [address] [place] [address] Care Team Providers Care Automotive Hardware Engineer Name Role Phone Yamile Hearn MD Primary Care Provider Edmar Rubin Unavailable [phone] Allergies No Known Allergies Reason For Referral No Information Medications Medication SIG (Take, Route, Frequency, Duration) Notes Start Date End Date Status Betamethasone Dipropionate Aug 0.05 % External for 10 Unknown Jantoven 5 MG Oral for 90 Unkn own Warfarin Sodium 5 MG 1 tablet Orally Onc e a day Unknown Vit O44-Mpmigjwzrc-Kpjb-Ussg Unk nown FLUoxetine HCl 10 MG 1 [...] Problem Acquired hammer toe of right foot (3722231280249172) Other hammer toe(s) (acquired), right foot (M20.41) Active confirmed Problem Bilateral atherosclerosis of arteries of lower limbs (disorder) (70757759151496706 ) 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 (I70.203) Active confirmed Q7(A), Q8(2B), Q9(1B,2 C) Problem Localized, primary osteoarthritis of the ankle and/or foot (747462602) Arthritis of joint of lesser toe, right (M19.071) Active confirmed Vital Signs Blood pressure diastolic 60 mm Hg 06/29/2024 Height 5 ft 4 in in 06/29/2024 Blood pressure systolic 130 mm Hg 06/29/2024 Weight 120 lbs 06/29/2024 BMI 20.6 kg/m2 06/29/2024 Procedures Procedure Date Ordered Date Performed Result Body Sit e 19082-KWIJCCB NAIL, 1-5 06/29/2024 N/A 98570-RBLI SKIN LESIONS, 2 TO 4 06/29/2024 N/A T7074-SCCQLSNC DYSTROPHIC NAILS ANY # 06/29/2024 N/A Encounters Encounter Location Date Provider Diagnosis [facility] [place] [address] [place] [address] 06/29/2024 Edmar Maier Atherosclerosis of artery of [...] X ray : Foot, right 3V 06/29/2024 72074-GJRDBPV NAIL, 1-5 06/29/2024 18830-TBAE SKIN LESIONS, 2 TO 4 06/30/19 25 V5509-UGBXJUUJ DYSTROPHIC NAILS ANY # 50,P3048-UIQ TENDON SHEATH/LIGAMENT 0 09/10/2017 Next Appt Details Provider Name:Edmar Maier , 10/01/2024 09:00:00 AM, [address] [place], [address], Insurance Providers Payer Name Payer Address Payer Phone Subscriber Number Group Number Insured Name Patient Relationship to Insured Coverage Start Date Coverage End Date Medicare National [facility] [email or web address] [address] [place] [address] [id number] Aneta Broussard Self - patient is the insured 7 [employer] Blue [employer] [address] [place] [address] [phone] [id number] Aneta Broussard Self - patient is the insured 7 Medical (General) History Medical History History ICD Code Broken bones Skin Cancer Measles Mumps Chicken pox CAD (Cholesterol) covid-19 Depression High Blood Pressure Lung cancer A fib Surgical History Surgery Date(Month/Year) carotid artery 2010
--- OUTSIDE RECORDS SUMMARY | 2024-08-02 10:39 | XMS_ITS ---
Author Organization [facility] Address [address] [place] [address] Care Team Providers Care Coil Connector Repairer Name Role Phone Yamile Hearn MD Primary Care Provider Edmar Rubin Unavailable [phone] Allergies No Known Allergies REASON FOR VISIT [...] Orally Onc e a day Unknown Vit D52-Wcdklzkdzm-Qcmv-Duzm Unk nown Simvastatin 40 MG Oral for [...] atherosclerosis of arteries of lower limbs (disorder) (07330889931005075 ) 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 (I70.203) Active confirmed Q7(A), Q8(2B), Q9(1B,2 C) Problem Acquired hammer toe of right foot (3108823891689623) Other hammer toe(s) (acquired), right foot (M20.41) Active confirmed Problem Localized, primary osteoarthritis of the ankle and/or foot (093100612) Arthritis of joint of lesser toe, right (M19.071) Active confirmed Vital Signs Blood pressure systolic 130 mm Hg 06/30/19 25 Blood pressure diastolic 60 mm Hg 025 Height 5 ft 4 in in 06/29/2024 Weight 120 lbs 06/29/2024 BMI 20.6 kg/m2 06/29/2024 Procedures Procedure Date Ordered Date Performed Result Body Sit e 15441-NQBIGTT NAIL, 1-5 06/29/2024 N/A 47006-SATF SKIN LESIONS, 2 TO 4 06/29/2024 N/A M7560-ASBGXNFF DYSTROPHIC NAILS ANY # 06/29/2024 N/A Encounters Encounter Location Date Provider Diagnosis [facility] [place] [address] [place] [address] 06/29/2024 Edmar Maier Atherosclerosis of artery of [...] X ray : Foot, right 3V 06/29/2024 61980-KQKHWEC NAIL, 1-5 06/29/2024 09893-VYVM SKIN LESIONS, 2 TO 4 06/30/19 25 A6631-KXYAIJSI DYSTROPHIC NAILS ANY # Next Appt Details Follow Up: prn, Reason: Provider Name:Edmar Lainez Livier , 10/01/2024 09:00:00 AM, [address] [place] [address], [address], Procedure Notes * Category Sub-Category Detail [...] instrumentation by the physician of record - 74627, Q8 Debride Nails 1-5 Procedure: Due to [...] necessary to maintain effective symptomatic relief - 45124 Nail Reduction Nail Reduction (-27) Trimming o [...] * Aneta PLATA ADOB:1940 (84 yo F)Acc No.[id number]:06/29/2024 Progress Notes Patient:?Aneta PLATA Provider:?Edmar Maier DPM :1940???Age:84 Y???Sex:Female D ate:06/29/2024 [facility] Pcp:Yamile Hearn MD Subjective: * Chief Complaints: [...] 1 tablet Orally Once a day Vit C88-Plmpwytrmr-Cown-Jbir Betamethasone Dipropionate Aug 0.05 % Ointment External Jantoven 5 MG Tablet Oral Medication List reviewed and reconciled with the patientUnknown Simvastatin 40 MG Tablet Oral Unknown Warfarin Sodium 5 MG Tablet 1 tablet Orally Once a day Unknown Vit E80-Xqvbwxcicy-Ikfk-Lgrc Unknown Betamethasone Dipropionate Aug 0.05 % Ointment [...] Foot, AP, LO, MO, RIGHT??Taken by trained?Podiatric Melter Assistant (?EF ).?Findings:?mild generalized decrease in bone density.?Digits:? [...] - M19.071??? Plan: * Treatment: 2.?Tinea unguium?Procedure: 83174-QPRXQFX NAIL, 1-5 3.?Pain in right toe(s)?Imaging: X [...] necessary to maintain effective symptomatic relief - 02775.?Keratoma Treatment:?Parring or Cutting of Benign Hyperkeratotic Lesion(s)?(-56) [...] instrumentation by the physician of record - 04330, Q8.?Nail Reduction:?Nail Reduction?(-27) Trimming of all dystrophic [...] DYSTROPHIC NAILS ANY #, Modifiers: XS , [id number] X-RAY EXAM OF RIGHT FOOT 3V, Modifiers: 26 , [id number] DEBRIDE NAIL, 1-5, Modifiers: XS 80627 TRIM SKIN LESIONS, 2 TO 4, Modifiers: [...] Maier DPM Date:?2024 Generated for Nargis velasco/Shemar/Omaira on:?08/02/2024 10:39 AM EDT History and Physical Notes * HPI [...] LO, MO, RIGHT Taken by trained Podiatric Melter Assistant ( EF ) Clinical Indication(s): Evaluate Biomech anical Deformity
== END 2024-08-02 09:35 | disposition home or self-care (01) ==
LOC: HO.US 09:34
PROVIDERS: PCP Internal Medicine; Visit Provider Nurse Practitioner Family
DX: Z98.890 Other specified postprocedural states (principal); I65.23 Occlusion and stenosis of bilateral carotid arteries
CPT/HCPCS: 93880

== ENCOUNTER → 2024-08-02 09:35 | Outpatient (BNV) | payer MEDICARE, SELFPAY | PROVIDERS: PCP Internal Medicine; Visit Provider Radiology Diagnostic Radiology | DX: I65.23 Occlusion and stenosis of bilateral carotid arteries (principal); I49.9 Cardiac arrhythmia, unspecified | CPT/HCPCS: 93880 ==

== ENCOUNTER 2024-08-17 13:08 | Outpatient (AMB) | payer MEDICARE, SELFPAY ==
--- NOTE | 2024-08-17 13:11 | A.OFFVIS_ITS ---
Intake Vital Signs 08/17/24 13:12 Height 5 ft 4 in Weight 125 lb BMI 21.5 BP 120/60 Blood Pressure Location Lt brachial Position Sitting Respiration 18 Pulse 63 Pulse Source Pulse Oximeter Temp 98.0 F Temp Source Oral Pulse Oximetry (%) 96 Oxygen Delivery Method Room Air Intake Visit Reasons: AWV Allergies atorvastatin Adverse Reaction (Intermediate, Verified 02/05/24 09:27) Gastrointestinal Upset lovastatin Adverse Reaction (Intermediate, Verified 02/05/24 09:27) Gastrointestinal Upset HPI AWV HPI Details Initiated the conversation about Advanced Directives. Advanced Directives help? patients prepare for current and future decisions about their medical treatment? and place of care. Discussed with patient that it is a process where a patients? current condition and prognosis are reviewed, their wishes for information? regarding their illness are elicited, and likely medical dilemmas are presented? and options discussed. The form can be amended as needed, reviewed yearly and? make changes as needed IPPE/AWV ? year old presents? for her ? Annual? Wellness Visit, initial visit.? Medical / Social History Reviewed? Past Medical History ?Yes? . ? [place]? of Care / Care Team list updated ?Yes . ? Surgical/Hospitalization? History ?Yes . ? Current Medications? (including OTC and supplements) ?Yes . ? Family History ?Yes? . ? Tobacco? Control form ?Yes . ? AUDIT-C (Alcohol use) form? ?Yes . ? Illicit drug use in Social? History ?Yes . ? Current diagnosis of? depression? ?No ? Appropriate PHQ2/PHQ9? completed ?Yes . ? Data entered by ?Medical? Product Marketing Analyst and reviewed by provider ? Fall Risk ? Fall? History? Have you had any falls with? injury in the past year? ?No . ? Have you had two or more? falls in the past year? ?No . ? Fall Risk Assessment: ?No? falls in the past year . ? HRA filled out by? the patient, reviewed by Provider and scanned. ? IPPE/AWV ? Balance? [place]? ?Yes . ? Tandem? walk ?Yes . ? Walk and? Turn ?Yes . ? Rise from? sit to stand ?Yes . ?Vision? Corrective? lens ?Yes ? Vision? screen ? Up-to-date, has an appointment [] for vision? screening and glaucoma screening ?Hearing? Whisper? test ?pass .? Initiated the conversation about Advanced Directives. Advanced Directives help? patients prepare for current and future decisions about their medical treatment? and place of care. Discussed with patient that it is a process where a patients? current condition and prognosis are reviewed, their wishes for information? regarding their illness are elicited, and likely medical dilemmas are presented? and options discussed. The form can be amended as needed, reviewed yearly and? make changes as needed Written? Plan?Completed. See Patient? Documents. [facility] Medical History (Updated 08/17/24 @ 13:46 by Yamile Hearn MD) Tubular adenoma Tubulovillous adenoma Annual physical exam Abnormal myocardial perfusion study Atrial septal defect Persistent atrial fibrillation COPD (chronic obstructive pulmonary disease) Tibia fracture Cancer, skin, squamous cell Anxiety Hypothyroid High cholesterol Surgical History Hx of bilateral cataract extraction History of esophagogastroduodenoscopy (EGD) H/O colonoscopy Status post bilateral carotid endarterectomy Status post cardiac surgery Family History Maternal Aunt Cervical cancer Social History Household Members: Significant Other Housing: House Are you a primary hearing healthcare practitioner to a significant other at home: No Alcohol intake: current Alcohol intake frequency: does not drink Patient Tobacco Use Status: Former Tobacco user Tobacco use type: Cigarette e-Cigarette/Vaping Use: Never Used Advance Directives Date on File: 04/04/20 service: No Current occupational status: retired Cognitive needs: No Hearing needs: No Vision needs: Yes Questionnaire Medicare Wellness Checkup What is your age?: 80 or older What gender do you identify with?: female During the past 4 weeks, how much have you been bothered by emotional problems such as feeling anxious, depressed, irritable, sad or downhearted, and blue?: slightly During the past 4 weeks, has your physical & emotional health limited your social activities with family, friends, neighbors, or groups?: not at all During the past 4 weeks, how much bodily pain have you generally had?: mild pain During the past 4 weeks, was someone available to help you if you needed & wanted help?: yes, quite a bit During the past 4 weeks, what was the hardest physical activity you could do for at least 2 minutes?: moderate Can you go shopping for groceries or clothes without someone's help?: Yes Can you prepare your own meals?: Yes Can you do your housework without help?: Yes Because of any health problems, do you need the help of another person with your personal care needs such as eating, bathing, dressing or getting around the house?: No Can you handle your own money without help?: Yes During the past 4 weeks, how would you rate your health in general?: good During the past 4 weeks how have things been going for you?: good & bad parts about equal Are you having difficulties driving your car?: no Do you always fasten your seat belt when you are in a car?: yes, usually During past 4 weeks, have you been bothered by the following: never: Sexual problems?, Trouble eating well?, Teeth or denture problems? and Problems using the telephone?, seldom: Falling or dizzy when standing up and often: Tiredness or fatigue? Have you fallen 2 or more times in the past year?: No Are you afraid of falling?: No Are you a smoker?: no During the past 4 weeks, how many drinks of wine, beer, or other alcoholic beverages did you have?: no alcohol at all Do you exercise for about 20 minutes 3 or more times a week?: yes, most of the time Have you been given information to help with the following?: no: Hazards in your house that might hurt you? and no: Keeping track of your medications? How often do you have trouble taking medicines the way you have been told to take them?: I always take medicine as prescribed How confident are you that you can control & manage most of your health pr oblems?: somewhat confident What is your race?: White Mini Mental State Exam (MMSE) Orientation What is the (year) (season) (date) (day) (month)?: year, season, date, day and month Where are we (state) (county) (town or city) (hospital) (floor)?: state, county, town or city, hospital/clinic and floor Registration Name of 3 unrelated objects clearly and slowly, then ask patient to repeat all 3 of them. (1st repeat determines score. Make sure they can repeat all three): object 1, object 2 and object 3 Attention & Calculation (CHOOSE ONE) Spell WORLD backwards (DLROW): 5 letters Recall Ask patient to repeat the 3 items from question #3.: object 1, object 2 and object 3 Language Show patient a wristwatch & ask what it is. Repeat for pencil.: watch and pencil Ask the patient to repeat the phrase 'No ifs, ands, or buts' after you.: correct Ask the patient to 'take a piece of paper with their right hand' 'fold paper in half' 'place paper on floor': take paper in right hand, fold paper in half and place paper on floor Print the sentence 'CLOSE YOUR EYES' on a piece. If patient actually closes eyes then score.: followed written direction Give patient a blank piece of paper & ask to write a sentence. Score if it contains a noun & verb.: sentence contains subject and verb Score Score: 29 PHQ-9 Over the last 2 weeks, how often have you been bothered by any of the following problems? 1. Little interest or pleasure in doing things: not at all 2. Feeling down, depressed, or hopeless: not at all 3. Trouble falling or staying asleep, or sleeping too much: not at all 4. Feeling tired or having little energy: several days 5. Poor appetite or overeating: not at all 6. Feeling bad about yourself - or that you are a failure or have let yourself or your family down: not at all 7. Trouble concentrating on things, such as reading the newspaper or watching television: not at all 8. Moving or speaking so slowly that other people could have noticed. Or the opposite - being so fidgety or restless that you have been moving around a lot more than usual: not at all 9. Thoughts that you would be better off or of hurting yourself in some way: not at all Total score: 1 Depression Screening Interpretation: Negative Depression Screening Done: Yes 37939 - PHQ-9 Billing: Yes Source: Developed by Drs. Devang Jordan, Terra Arias, Irvin Gonzalez and colleagues, with an educational kristel from [employer]. Review of Systems Const All systems reviewed & are unremarkable except as noted in HPI and below Eyes Reports no additional complaints ENT Reports no additional complaints Card Reports no additional complaints Resp Reports no additional complaints GI Reports no additional complaints Reports no additional complaints Physical Exam Vital Signs: Last Vital Signs Temp 98.0 F 08/17/24 13:12 Pulse 63 08/17/24 13:12 Resp 18 08/17/24 13:12 BP 120/60 08/17/24 13:12 Pulse Ox 96 08/17/24 13:12 Oxygen Delivery Method Room Air 08/17/24 13:12 BMI result Body Mass Index 21.5 Const General: no acute distress HEENT Head: Yes normal to inspection Ears: hearing grossly normal bilaterally Neck Neck: Yes no lymphadenopathy and Yes supple Resp Effort & Inspection: normal respiratory effort Auscultation: clear to auscultation bilaterally Cardio Rhythm: regular rhythm Heart sounds: S1 normal heart sound present and S2 normal heart sound present GI Inspection: Yes normal to inspection Palpation (GI): Soft to palpation Percussion: Yes normal to percussion Auscultation: normal bowel sounds Extrem General: Yes no clubbing, cyanosis or edema Assessment & Plan Assessment & Plan (1) HTN (hypertension): Code(s): I10 - Essential (primary) hypertension Plan: Controlled on amlodipine (2) Non-small cell cancer of right lung: Comment: PET scan 10/11 showed mets to cervical, mediastinal LNs, ? verterbral body L1, addenoCa on Keytruda since October 2022 f/u , PET scan 04/13 stable right upper lobe pulmonary nodule improved from baseline, he will let the status in the L1 vertebral body Code(s): C34.91 - Malignant neoplasm of unspecified part of right bronchus or lung Plan: Established with Oncology (3) Annual physical exam: Code(s): Z00.00 - Encounter for general adult medical examination without abnormal findings Plan: Well-balanced diet regular physical activity discussed with the patient (4) Persistent atrial fibrillation: Code(s): I48.19 - Other persistent atrial fibrillation Plan: Anticoagulated on Eliquis (5) COPD (chronic obstructive pulmonary disease): Code(s): J44.9 - Chronic obstructive pulmonary disease, unspecified Plan: Continue Anoro (6) Hypothyroid: Code(s): E03.9 - Hypothyroidism, unspecified Plan: Continue levothyroxine (7) Recurrent squamous cell carcinoma of skin: Comment: Established with Dermatology Code(s): C44.92 - Squamous cell carcinoma of skin, unspecified Plan: Follow-up with dermatology Orders: Orders IRON PROFILE 6 Months C34.91 - Malignant neoplasm of unspecified part of right bronchus or lung, E55.9 - Vitamin D deficiency, unspecified, I10 - Essential (primary) hypertension, Z00.00 - Encounter for general adult medical examination without abnormal findings Complete Blood Count Auto Diff 6 Months C34.91 - Malignant neoplasm of unspecified part of right bronchus or lung, E55.9 - Vitamin D deficiency, unspecified, I10 - Essential (primary) hypertension, Z00.00 - Encounter for general adult medical examination without abnormal findings Vitamin B12 and Folate 6 Months C34.91 - Malignant neoplasm of unspecified part of right bronchus or lung, E55.9 - Vitamin D deficiency, unspecified, I10 - Essential (primary) hypertension, Z00.00 - Encounter for general adult medical examination without abnormal findings Vitamin D 25-OH Total 6 Months C34.91 - Malignant neoplasm of unspecified part of right bronchus or lung, E55.9 - Vitamin D deficiency, unspecified, I10 - Essential (primary) hypertension, Z00.00 - Encounter for general adult medical examination without abnormal findings Comprehensive Speculator. Panel Fast 6 Months C34.91 - Malignant neoplasm of unspecified part of right bronchus or lung, E55.9 - Vitamin D deficiency, unspecified, I10 - Essential (primary) hypertension, Z00.00 - Encounter for general adult medical examination without abnormal findings Quality Reporting (2019) Depression/Bipolar (159/160/161/177) PHQ-9: Total score: 1 Coding Level of Care Code Medicare Subsequent (G0439) Diagnoses HTN (hypertension) I10 Non-small cell cancer of right lung C34.91 Annual physical exam Z00.00 Persistent atrial fibrillation I48.19 COPD (chronic obstructive pulmonary disease) J44.9 Hypothyroid E03.9 Recurrent squamous cell carcinoma of skin C44.92 CPT Codes Advance Care Planning - Advance Care Planning discussion: On file, no changes ([id number]) Advance Care Planning - Time spent: 1-15 minutes, on File ([id number]) Additional Codes PHQ-9 - 78757 - PHQ-9 Billing: Yes ([id number]) Advance Care Planning Advance Care Planning discussion: On file, no changes Forms completed: Health Care Proxy Time spent: 1-15 minutes, on File Did not discuss due to Cultural/Spiritual beliefs: Yes
[2024-08-17 13:12] VITALS: BP 120/60; PULSE 63; RESP 18; TEMP 36.7; O2SAT 96; BMI 21.5
--- OUTSIDE RECORDS SUMMARY | 2024-08-17 15:10 | XMS_ITS ---
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) Active confirmed Q7(A), Q8(2B), Q9(1B,2 C) Problem Acquired hammer toe of right foot ([id number]) Other hammer toe(s) (acquired), right foot (M20.41) Active confirmed Problem Localized, primary osteoarthritis of the ankle and/or foot (238661731) Arthritis of joint of lesser toe, right (M19.071) Active confirmed Vital Signs Height 5 ft 4 in in 06/29/2024 Weight 120 lbs 06/29/2024 BMI 20.6 kg/m2 06/29/2024 Blood pressure systolic 130 mm Hg 06/30/19 25 Blood pressure diastolic 60 mm Hg 025 Procedures Procedure Date Ordered Date Performed Result Body Sit e 76497-LLXCORH NAIL, 1-5 06/29/2024 N/A 24481-ZLFV SKIN LESIONS, 2 TO 4 06/29/2024 N/A X6995-GEWUGVMN DYSTROPHIC NAILS ANY # 06/29/2024 N/A Encounters Encounter Location Date Provider Diagnosis [facility] [place] [address] [place] [address] 06/29/2024 Edmar Maier Atherosclerosis of artery of [...] X ray : Foot, right 3V 06/29/2024 33034-RIVRZXO NAIL, 1-5 06/29/2024 33138-WTYN SKIN LESIONS, 2 TO 4 06/30/19 25 F5461-XPZDNBBE DYSTROPHIC NAILS ANY # Next Appt Details Follow Up: prn, Reason: Provider Name:Edmar Lainez Livier , 10/01/2024 09:00:00 AM, [address] [place] [address], [id number], Procedure Notes * Category Sub-Category Detail [...] instrumentation by the physician of record - 68015, Q8 Debride Nails 1-5 Procedure: Due to [...] necessary to maintain effective symptomatic relief - 37055 Nail Reduction Nail Reduction (-27) Trimming o [...] * Aneta PLATA ADOB:1940 (84 yo F)Acc No.[id number]:06/29/2024 Progress Notes Patient:?Aneta PLATA Provider:?Edmar Maier DPM :1940???Age:84 Y???Sex:Female D ate:06/29/2024 [facility] Pcp:Yamile Hearn MD Subjective: * Chief Complaints: [...] 1 tablet Orally Once a day Vit O53-Nayundtmzg-Ozmz-Qbyk Betamethasone Dipropionate Aug 0.05 % Ointment External Jantoven 5 MG Tablet Oral Medication List reviewed and reconciled with the patientUnknown Simvastatin 40 MG Tablet Oral Unknown Warfarin Sodium 5 MG Tablet 1 tablet Orally Once a day Unknown Vit L45-Kzrrfagnou-Reme-Zbvh Unknown Betamethasone Dipropionate Aug 0.05 % Ointment [...] Foot, AP, LO, MO, RIGHT??Taken by trained?Podiatric Tank House Supervisor (?EF ).?Findings:?mild generalized decrease in bone density.?Digits:? [...] - M19.071??? Plan: * Treatment: 2.?Tinea unguium?Procedure: 36570-YJMUARL NAIL, 1-5 3.?Pain in right toe(s)?Imaging: X [...] necessary to maintain effective symptomatic relief - 55997.?Keratoma Treatment:?Parring or Cutting of Benign Hyperkeratotic Lesion(s)?(-56) [...] instrumentation by the physician of record - 11365, Q8.?Nail Reduction:?Nail Reduction?(-27) Trimming of all dystrophic [...] DYSTROPHIC NAILS ANY #, Modifiers: XS , [id number] X-RAY EXAM OF RIGHT FOOT 3V, Modifiers: 26 , [id number] DEBRIDE NAIL, 1-5, Modifiers: XS 47623 TRIM SKIN LESIONS, 2 TO 4, Modifiers: [...] Maier DPM Date:?2024 Generated for Nargis velasco/Shemar/Omaira on:?08/17/2024 03:10 PM EDT History and Physical Notes * [...] LO, MO, RIGHT Taken by trained Podiatric Tank House Supervisor ( EF ) Clinical Indication(s): Evaluate Biomech anical Deformity
--- OUTSIDE RECORDS SUMMARY | 2024-08-17 15:10 | XMS_ITS ---
Author Organization [facility] Address [address] [place] [address] Care Team Providers Care Human Anatomy Teacher Name Role Phone Yamile Hearn MD Primary Care Provider Edmar Rubin Unavailable [phone] Judy Quintana Unavailable [phone] REASON FOR VISIT Seen Sooner Medications Medication SIG (Take, Route, Frequency, Duration) Notes Start Date End Date Status Simvastatin 40 MG Oral for 90 Unknown Warfarin Sodium 5 MG 1 tablet Orally Onc e a day Unknown Vit K30-Eldakeicfm-Gjdr-Poge Unk nown Betamethasone Dipropionate Aug 0.05 % External for 10 Unknown Jantoven 5 MG Oral for 90 Unkn own Eliquis Active Levothyroxine Sodium 50 MCG Oral for 30 Unknown FLUoxetine HCl 10 MG Oral for 90 Unknown Rosuvastatin Calcium Active amLODIPine Besylate [...] No Encounters Encounter Location Date Provider Diagnosis [facility] [address] [place] [address] 08/10/2024 Judy Quintana Plan Of Treatment Next Appt Details Provider Name:Edmar Maier , 10/01/2024 09:00:00 AM, [address] [place], [address], Progress Notes * Aneta PLATA ADOB:1940 (84 yo F)Acc No.[id number]:08/10/2024 Progress Notes Patient:?Aneta PLATA Provider:?Judy Quintana DPM :1940???Age:84 Y???Sex:Female D ate:08/10/2024 [address] [place], [place] [address] Pcp:Yamile Hearn MD Subjective: * Chief Complaints: * ???1. Seen Sooner. * ROS:?General/Constitutional:?Nausea?denies.?Vomiting?denies.?Hunger Thirst?denies.?Loss appetite?denies, denies.?Chills?denies, denies.?Fatigue?denies, denies.?Fever?denies, denies.?Night Sweats?denies.?Unexplained weight loss?denies.?Unexplained weight gain?denies.?Ophthalmologic:?Blurred vision?denies.?Red eye?denies.?HEENTM:?Dentures?admits.?Dizziness?denies.?Glasses/contacts?admits.?Retinopathy?de nies.?Blurred/double vision?denies, denies.?TMJ?denies, denies.?Discharge/drainage?denies.?Implants?denies, denies.?Sore throat?denies.?Dental implants?denies.?Hard of hearing ?denies.?Difficulty chewing/swallowing/speaking?denies, denies.?Nose bleeds?admits, denies.?Sore mouth?denies, denies.?Swollen glands?denies.?Respiratory:?On Oxygen?denies.?Pneumonia/pleurisy?denies.?Bronchitis?admits, denies.?Emphysema?denies, denies.?Coughing?denies.?Cough blood?denies, denies.?Shortness of breath?admits, denies.?Wheezing?denies.?Cardiovascular:?Pacemaker?denies.?MVP?denies.?WPW?denies, denies.?CHF?denies, denies.?Heart attack?denies, denies.?Septal defect?denies, denies.?Rapid beat?denies, denies.?Chest pain ?denies, denies.?Atrial Fib.?admits.?Murmur/Palpitations?denies, denies.?Gastrointestinal:?Hemorrhoids?denies.?Stomach/Abdominal pain?denies, denies.?Dark blood stool?denies, denies.?Irritable bowel ?denies, denies.?Constipation?denies.?Diarrhea?denies, denies.?Vomiting?denies.?Hematology:?Swelling?denies.?Clots?denies.?Varicose Veins?denies.?Bruising?denies.?Bleeding problem?denies, denies.?Genitourinary:?Blood urine?denies.?Frequent/Painfu/urination/bladder control?denies, denies.?Kidney stones?denies, denies.?Infection (UTI)?denies.?Nephropathy?denies.?sex trans dis (STD)?denies.?Prostate?denies.?Musculoskeletal:?Hammertoes?denies.?Bunions?denies, denies.?Scoliosis/kyphosis?denies.?Back Pain?denies.?Muscle Cramps/ Resting?denies.?Muscle cramps / walking?admits.?Generalized aches and pains?denies.?Weakness?denies.?Integ.:?Moore?denies.?Scars?denies.?Corns/calluses?denies.?Ingrown nails?denies.?Painful nails?denies.?Open Sores?denies.?Rashes?denies.?Neurologic:?Difficulty sleeping?denies, denies.?Bipolar?denies.?Brain disorder?denies, denies.?Numbness?denies.?Balance trouble?denies, denies.?Confusion?denies, denies.?Fainting/blackouts?denies, denies.?Headache?denies.?Tingling?denies.?Tremors?denies, denies.? * Medical History:? * Social History:?Tobacco Use:?Tobacco Use/Smoking?Are you a:?former smoker ?Additional Findings: Tobacco Non-User?Current non-smoker,Ex-moderate cigarette smoker (10-19/day) ?Tobacco use other than smoking?Are you an other tobacco user??No ???Miscellaneous:?Caffeine: yes, 2-3 cups per day. ?Children: yes, 4. ?Exercise: yes, walking, yoga. ?Living with: family. ?Marital status: . ?Occupation: retired. * Medications:?Taking Rosuvast atin Calcium , Taking amLODIPine Besylate , Taking Eliquis , Unknown Levothyroxine Sodium 50 MCG Tablet Oral , Unknown FLUoxetine HCl 10 MG Capsule Oral , Unknown Simvastatin 40 MG Tablet Oral , Unknown Warfarin Sodium 5 MG Tablet 1 tablet Orally Once a day , Unknown Vit R21-Trxfjywsim-Evnz-Txhb , Unknown Betamethasone Dipropionate Aug 0.05 % Ointment External , Unknown Jantoven 5 MG Tablet Oral Objective: * Vitals:? Assessment: Plan: * Treatment: * Images: * The named appointment provid er may or may not be the originator of this progress note, and it is not deemed complete until electronically signed by the appointment provider. Sign off status: Pending * Provider:?Judy Quintana DPM Date:? Generated for Nargis velasco/Shemar/Omaira on:?08/17/2024 03:10 PM EDT
--- OUTSIDE RECORDS SUMMARY | 2024-08-17 15:10 | XMS_ITS | Patient Health Record ---
Author Organization [facility] Address [address] [place] [address] Care Team Providers Care Retail Greeter Name Role Phone Yamile Hearn MD Primary Care Provider Edmar Rubin Unavailable [phone] Judy Quintana Unavailable [phone] Allergies No Known Allergies Reason For Referral No Information Medications Medication SIG (Take, Route, Frequency, Duration) Notes Start Date End Date Status Eliquis Active FLUoxetine HCl 10 MG 1 capsule Orally On ce a day Active Eliquis 5 MG as directed Orally Active Levothyroxine Sodium 50 MCG Oral for 30 Unknown Rosuvastatin Calcium 40 MG 1 tablet Oral ly Once a day Active FLUoxetine HCl 10 MG Oral for 90 Unknown amLODIPine Besylate 10 MG 1 tablet Orall y Once a day Active Simvastatin 40 MG Oral for 90 Unknown Warfarin Sodium 5 MG 1 tablet Orally Onc e a day Unknown Vit U91-Juhomkzkqc-Jsid-Vait Unk nown Betamethasone Dipropionate Aug 0.05 % External for 10 Unknown Jantoven 5 MG Oral for 90 Unkn own Rosuvastatin Calcium Active amLODIPine Besylate Active Social History Alcohol Screen Question Answer Notes Did you have a drink containing alcohol in the p ast year? Yes Points 0 Interpretation Negative Tobacco use other than smoking: Question Answer Notes Are you an other tobacco user? No Problems Problem Type SNOMED Code ICD Code Onset Dates Problem Status W/U Status Risk Notes Problem Acquired hammer toe of right foot (8726637321379860) Other hammer toe(s) (acquired), right foot (M20.41) Active confirmed Problem Bilateral atherosclerosis of arteries of lower limbs (disorder) (42448116735862494 ) 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 (I70.203) Active confirmed Q7(A), Q8(2B), Q9(1B,2 C) Problem Localized, primary osteoarthritis of the ankle and/or foot (456297520) Arthritis of joint of lesser toe, right (M19.071) Active confirmed Vital Signs Blood pressure diastolic 60 mm Hg 06/29/2024 Height 5 ft 4 in in 06/29/2024 Blood pressure systolic 130 mm Hg 06/29/2024 Weight 120 lbs 06/29/2024 BMI 20.6 kg/m2 06/29/2024 Procedures Procedure Date Ordered Date Performed Result Body Sit e 72154-MKKAJEX NAIL, 1-5 06/29/2024 N/A 67409-LHYF SKIN LESIONS, 2 TO 4 06/29/2024 N/A A5148-XKBZKWAT DYSTROPHIC NAILS ANY # 06/29/2024 N/A Encounters Encounter Location Date Provider Diagnosis [facility] [place] [address] [place] [address] 06/29/2024 Edmar Maier Atherosclerosis of artery of [...] X ray : Foot, right 3V 06/29/2024 29806-JHAJFNO NAIL, 1-5 06/29/2024 70793-VCDB SKIN LESIONS, 2 TO 4 06/30/19 25 A9691-GZJMFGWO DYSTROPHIC NAILS ANY # [id number] TENDON SHEATH/LIGAMENT 0 09/10/2017 Next Appt Details Provider Name:Edmar Maier , 10/01/2024 09:00:00 AM, [address] [place], [address], Insurance Providers Payer Name Payer Address Payer Phone Subscriber Number Group Number Insured Name Patient Relationship to Insured Coverage Start Date Coverage End Date Medicare National Govt [facility] [address] [place] [address] [id number] Aneta Broussard Self - patient is the insured 7 [employer] [address] [place] [address] [phone] [id number] Aneta Broussard Self - patient is the insured 7 Medical (General) History Medical History History ICD Code Broken bones Skin Cancer Measles Mumps Chicken pox CAD (Cholesterol) covid-19 Depression High Blood Pressure Lung cancer A fib Surgical History Surgery Date(Month/Year) carotid artery 2009
== END 2024-08-17 13:50 | disposition home or self-care (01) ==
LOC: HO.HMCC 13:09
PROVIDERS: PCP Internal Medicine; Visit Provider Internal Medicine
DX: Z00.00 Encounter for general adult medical examination without abnormal findings (principal); C34.91 Malignant neoplasm of unspecified part of right bronchus or lung; I48.19 Other persistent atrial fibrillation; J44.9 Chronic obstructive pulmonary disease, unspecified; I10 Essential (primary) hypertension; E03.9 Hypothyroidism, unspecified; C44.92 Squamous cell carcinoma of skin, unspecified

== ENCOUNTER → 2024-08-17 13:08 | Outpatient (BNVA) | payer MEDICARE, SELFPAY | PROVIDERS: PCP Internal Medicine; Visit Provider Internal Medicine | DX: Z00.00 Encounter for general adult medical examination without abnormal findings (principal); I10 Essential (primary) hypertension; C34.91 Malignant neoplasm of unspecified part of right bronchus or lung; I48.19 Other persistent atrial fibrillation; J44.9 Chronic obstructive pulmonary disease, unspecified; E03.9 Hypothyroidism, unspecified; C44.92 Squamous cell carcinoma of skin, unspecified | CPT/HCPCS: 96127 ==

== ENCOUNTER 2024-09-14 12:11 | Outpatient (REF) | payer MEDICARE, SELFPAY ==
--- NOTE | ~2024-09-14 | XR_ITS ---
EXAMINATION: XR HAND 3 OR MORE VIEWS RIGHT HISTORY: S69.91XA - Unspecified injury of right wrist, hand and finger(s), initial... COMPARISON: There are no prior studies available for comparison. FINDINGS: Three views of the right hand are submitted. The bones are osteopenic. There is no fracture or dislocation. There is mild osteoarthritis of the DIP joints. The soft tissues are unremarkable. XR/XR hand RT min 3V IMPRESSION: Osteopenia. No evidence of fracture of the right hand. Electronically signed by: Devang Armas MD 09/14/2024 03:49 PM EDT
== END 2024-09-14 12:12 | disposition home or self-care (01) ==
LOC: HO.HMGCX 12:11
PROVIDERS: PCP Internal Medicine; Visit Provider Internal Medicine
DX: S69.91XA Unspecified injury of right wrist, hand and finger(s), initial encounter (principal)
CPT/HCPCS: 73130; 99212

== ENCOUNTER 2024-09-14 12:11 | Outpatient (AMB) | payer MEDICARE, SELFPAY ==
--- OUTSIDE RECORDS SUMMARY | 2024-09-14 12:29 | XMS_ITS | Patient Health Record ---
[facility] Address [address] [place] [address] Care Team Providers Care Director Of Entertainment Name Role Phone Yamile Hearn MD Primary Care Provider Edmar Rubin Unavailable [phone] Judy Quintana Unavailable [phone] Allergies No Known Allergies Reason For Referral [...] Orally Onc e a day Unknown Vit R42-Lmnqqitojq-Zgqb-Pafh Unk nown Betamethasone Dipropionate Aug 0.05 % [...] Problem Acquired hammer toe of right foot (7693312773699163) Other hammer toe(s) (acquired), right foot (M20.41) Active confirmed Problem Bilateral atherosclerosis of arteries of lower limbs (disorder) (58956737043763725 ) 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 (I70.203) Active confirmed Q7(A), Q8(2B), Q9(1B,2 C) Problem Localized, primary osteoarthritis of the ankle and/or foot (890447052) Arthritis of joint of lesser toe, right (M19.071) Active confirmed Vital Signs Blood pressure diastolic 60 mm Hg 06/29/2024 Height 5 ft 4 in in 06/29/2024 Blood pressure systolic 130 mm Hg 06/29/2024 Weight 120 lbs 06/29/2024 BMI 20.6 kg/m2 06/29/2024 Procedures Procedure Date Ordered Date Performed Result Body Sit e 99431-JQUSXUX NAIL, 1-5 06/29/2024 N/A 48121-ERFV SKIN LESIONS, 2 TO 4 06/29/2024 N/A T2597-XUOEXIKB DYSTROPHIC NAILS ANY # 06/29/2024 N/A Encounters Encounter Location Date Provider Diagnosis [facility] [place] [address] [place] [address] 06/29/2024 Edmar Maier Atherosclerosis of artery of [...] X ray : Foot, right 3V 06/29/2024 46362-JOZVTBM NAIL, 1-5 06/29/2024 50373-JQPC SKIN LESIONS, 2 TO 4 06/30/19 25 W3596-XDIHHCMS DYSTROPHIC NAILS ANY # [id number] TENDON SHEATH/LIGAMENT 0 09/10/2017 Next Appt Details Provider Name:Edmar Maier , 10/01/2024 09:00:00 AM, [address] [place], [address], Insurance Providers Payer Name Payer Address Payer Phone Subscriber Number Group Number Insured Name Patient Relationship to Insured Coverage Start Date Coverage End Date Medicare National Govt [facility] [address] [place] [address] [id number] Aneta Broussard Self - patient is the insured 7 [employer] [address] [place] [address] [id number] Aneta Broussard Self - patient is the insured 7 Medical (General) History Medical History History ICD Code Broken bones Skin Cancer Measles Mumps Chicken pox CAD (Cholesterol) covid-19 Depression High Blood Pressure Lung cancer A fib Surgical History Surgery Date(Month/Year) carotid artery 2009
[2024-09-14 12:46] VITALS: BP 120/60; PULSE 88; RESP 18; TEMP 36.7; O2SAT 95; BMI 21.5
--- NOTE | 2024-09-14 12:46 | MHC.PC.OV ---
Vital Signs 09/14/24 12:46 Height 5 ft 4 in Weight 125 lb BMI 21.5 BP 120/60 Blood Pressure Location Lt brachial Position Sitting Respiration 18 Pulse 88 Pulse Source Pulse Oximeter Temp 98.1 F Temp Source Oral Pulse Oximetry (%) 95 Oxygen Delivery Method Room Air Intake Visit Reasons: EP-rt hand swollen & pain Intake Note: Pt is here today for a sick visit. Pt c/o R hand swelling and pain. Allergies atorvastatin Adverse Reaction (Intermediate, Verified 09/14/24 13:01) Gastrointestinal Upset lovastatin Adverse Reaction (Intermediate, Verified 09/14/24 13:01) Gastrointestinal Upset Medication List - Last Reconciled 09/14/24 by Yamile Hearn MD acetaminophen 1,000 mg (2 x 500 mg) PO Q6H PRN albuterol sulfate 90 mcg/actuation 2 puffs inhalation Q6H PRN amlodipine 10 mg PO DAILY apixaban (Eliquis) 5 mg PO BID fluoxetine 10 mg PO DAILY levothyroxine 50 mcg PO DAILY lorazepam 0.5 mg PO DAILY PRN pembrolizumab 200 mg IV Q3W rosuvastatin 40 mg PO DAILY umeclidinium-vilanterol 62.5-25 mcg/actuation (Anoro Ellipta) 1 ea inhalation DAILY Tobacco use date assessed: 09/14/24 Fall risk assessment: No Falls in past year Last assessed Fall Risk: 09/14/24 Dental Screening Dental Screen Date: 09/14/24 Did you have a dental visit in the last 12 months?: Yes Did you have a dental problem in the last 6 months where you did not have access to dental care?: No Was dental information given to patient?: Patient has dentist HPI EP-rt hand swollen & pain HPI Details Patient presents complaining of right hand swelling and pain after patient pricked herself with a tevin castillo thorn 3 days ago. Patient denies fever chills discharge from the wound [facility] Medical History (Updated 09/14/24 @ 13:36 by Yamile Hearn MD) Tubular adenoma Tubulovillous adenoma Annual physical exam Abnormal myocardial perfusion study Atrial septal defect Persistent atrial fibrillation COPD (chronic obstructive pulmonary disease) Tibia fracture Cancer, skin, squamous cell Anxiety Hypothyroid High cholesterol Surgical History Hx of bilateral cataract extraction History of esophagogastroduodenoscopy (EGD) H/O colonoscopy Status post bilateral carotid endarterectomy Status post cardiac surgery Family History Maternal Aunt Cervical cancer Social History Household Members: Significant Other Housing: House Are you a primary career services assistant to a significant other at home: No Alcohol intake: current Alcohol intake frequency: does not drink Patient Tobacco Use Status: Former Tobacco user Tobacco use type: Cigarette e-Cigarette/Vaping Use: Never Used Advance Directives Date on File: 04/04/20 service: No Current occupational status: retired Cognitive needs: No Hearing needs: No Vision needs: Yes Questionnaire Thrive Questionnaire Date Thrive assessed: 04/22/23 SHADY-7 AMB Questionnaire SHADY-7 Date SHADY - 7 assessed: 04/22/23 Source: Developed by Drs. Devang Jordan, Terra Arias, Irvin Gonzalez and colleagues, with an educational kristel from [employer]. Review of Systems Const All systems reviewed & are unremarkable except as noted in HPI and below ENT Reports no additional complaints Card Reports no additional complaints Resp Reports no additional complaints GI Reports no additional complaints Reports no additional complaints Physical exam (Primary Care) Vital Signs: Last Vital Signs Temp 98.1 F 09/14/24 12:46 Pulse 88 09/14/24 12:46 Resp 18 09/14/24 12:46 BP 120/60 09/14/24 12:46 Pulse Ox 95 09/14/24 12:46 Oxygen Delivery Method Room Air 09/14/24 12:46 BMI result Body Mass Index 21.5 Tobacco/Smoking Status: Tobacco use Status Tobacco use date assessed 09/14/24 09/14/24 13:09 Patient Tobacco Use Status Former Tobacco user 09/14/24 13:09 Tobacco use type Cigarette 09/14/24 12:47 e-Cigarette/Vaping Use Never Used 09/14/24 12:47 Thrive Assessment: Date of Thrive Assessment Date Thrive assessed 04/22/23 09/14/24 12:47 Const General: no acute distress HENMT Head: Yes normal to inspection Eyes General: appearance normal, both eyes and all related structures Resp Effort & Inspection: normal respiratory effort Auscultation: clear to auscultation bilaterally Cardio Rhythm: regular rhythm Heart sounds: S1 normal heart sound present and S2 normal heart sound present Extrem Other: There is soft tissue swelling and erythema tenderness of the dorsum of right hand. There is a small puncture wound present without discharge Coding Level of Care Code Est Pt Level 3 (59342) Diagnoses Injury of right hand S69.91XA Assessment & Plan Assessment & Plan (1) Injury of right hand: Code(s): S69.91XA - Unspecified injury of right wrist, hand and finger(s), initial encounter Category: Medical Plan: Check x-ray of right hand, Augmentin 875 b.i.d. for 7 days is prescribed and supportive care discussed with the patient. Patient was advised to get a tetanus shot at the pharmacy. Medications: New amoxicillin-pot clavulanate 875-125 mg 1 tab PO BID 14 tabs 0RF
== END 2024-09-14 14:43 | disposition home or self-care (01) ==
LOC: HO.HMCC 12:11
PROVIDERS: PCP Internal Medicine; Visit Provider Internal Medicine
DX: S69.91XA Unspecified injury of right wrist, hand and finger(s), initial encounter (principal)

== ENCOUNTER → 2024-09-14 13:47 | Outpatient (BNV) | payer MEDICARE, SELFPAY | PROVIDERS: PCP Internal Medicine; Visit Provider Radiology Diagnostic Radiology | DX: M19.041 Primary osteoarthritis, right hand (principal) | CPT/HCPCS: 73130 ==

== ENCOUNTER 2024-09-21 08:06 | Outpatient (REF) | payer MEDICARE, SELFPAY ==
--- NOTE | ~2024-09-21 | PE_ITS ---
PT/CT SKULL BASE TO MID THIGH HISTORY: Assess response to treatment. Non-small cell right lung carcinoma. COMPARISON: Comparison is made with the prior examination dated 04/06/2024. TECHNIQUE: Images were obtained from the skull base to the proximal thighs. Image reconstruction was performed in the axial, coronal, and sagittal planes. Fusion images were obtained and evaluated using the concurrently performed unenhanced CT scan. Images were obtained approximately 57 minutes after the intravenous administration of 16.1 mCi F18-FDG. A low dose 3.[address] scan was acquired for attenuation correction. PET and CT in-line fusion was performed for anatomical correlation of the functional information obtained from FDG PET imaging. FINDINGS: HEAD/NECK: No abnormal FDG uptake is identified in the head or neck. Physiologic RAILWAY ENGINEER, salivary, pharyngeal, laryngeal and muscular uptake appears symmetric. CHEST: Again seen is a spiculated mass at the right lung apex. The mass now measures 2.3 x 1.2 cm, similar to the prior study (previously 2.5 x 1.1 cm). This lesion demonstrates an SUV max of 1.5 to background. No additional abnormal activity is seen in the chest. Physiologic cardiac activity is noted. ABDOMEN/PELVIS: No abnormal FDG uptake is identified in the abdomen or pelvis. Again seen are right renal cysts. Physiologic activity is noted in the GI and tracts. SKELETAL: No suspicious musculoskeletal uptake is identified. Activity at the site of the previously noted L1 metastatic deposit (PET/CT scan 11/05/2022) is 2.2, similar to background. PET/CT SCAN PET/PET CT fusion skull to thigh IMPRESSION: Stable PET/CT scan. The previously seen right apical lung mass is similar in size and demonstrates activity similar to background. Activity at the previously seen L1 metastatic deposit is also similar to background on the current examination. Electronically signed by: Devang Armas MD 09/21/2024 12:59 PM EDT
--- OUTSIDE RECORDS SUMMARY | 2024-09-21 08:08 | XMS_ITS | Patient Health Record ---
Author Organization [facility] Address [address] [place] [address] Care Team Providers Care Director Of Billing Name Role Phone Yamile Hearn MD Primary Care Provider Edmar Rubin Unavailable [phone] Judy Quintana Unavailable [phone] Allergies No Known Allergies Reason For Referral [...] Orally Onc e a day Unknown Vit W16-Ciqvuontod-Ezgk-Hgcd Unk nown Betamethasone Dipropionate Aug 0.05 % [...] Problem Acquired hammer toe of right foot (1557904746222306) Other hammer toe(s) (acquired), right foot (M20.41) Active confirmed Problem Bilateral atherosclerosis of arteries of lower limbs (disorder) (89601342504098546 ) 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 (I70.203) Active confirmed Q7(A), Q8(2B), Q9(1B,2 C) Problem Arthritis of taylor nt of lesser toe, right (M19.071) Active confirmed Vital Signs Blood pressure diastolic 60 mm Hg 06/29/2024 Height 5 ft 4 in in 06/29/2024 Blood pressure systolic 130 mm Hg 06/29/2024 Weight 120 lbs 06/29/2024 BMI 20.6 kg/m2 06/29/2024 Procedures Procedure Date Ordered Date Performed Result Body Sit e 69075-QJPOKGM NAIL, 1-5 06/29/2024 N/A 09079-OIPZ SKIN LESIONS, 2 TO 4 06/29/2024 N/A Q8788-NSYFMIZP DYSTROPHIC NAILS ANY # 06/29/2024 N/A Encounters Encounter Location Date Provider Diagnosis [facility] [place] [address] [place] [address] 06/29/2024 Edmar Maier Atherosclerosis of artery of [...] X ray : Foot, right 3V 06/29/2024 51537-WKNUAYF NAIL, 1-5 06/29/2024 58312-JMFC SKIN LESIONS, 2 TO 4 06/30/19 25 G1232-PYOJINHU DYSTROPHIC NAILS ANY # [id number] TENDON SHEATH/LIGAMENT 0 09/10/2017 Next Appt Details Provider Name:Edmar Maier , 10/01/2024 09:00:00 AM, [address] [place], [address], Insurance Providers Payer Name Payer Address Payer Phone Subscriber Number Group Number Insured Name Patient Relationship to Insured Coverage Start Date Coverage End Date Medicare [facility] [employer] [address] [place] [address] [id number] Aneta Broussard Self - patient is the insured 7 [employer] [address] [place] [address] [phone] [id number] Aneta Broussard Self - patient is the insured 7 Medical (General) History Medical History History ICD Code Broken bones Skin Cancer Measles Mumps Chicken pox CAD (Cholesterol) covid-19 Depression High Blood Pressure Lung cancer A fib Surgical History Surgery Date(Month/Year) carotid artery 2010
== END 2024-09-21 08:07 | disposition home or self-care (01) ==
LOC: HO.PET 08:06
PROVIDERS: PCP Internal Medicine; Visit Provider Internal Medicine
DX: Z13.89 Encounter for screening for other disorder (principal)

== ENCOUNTER 2024-10-20 14:56 | Outpatient (REF) | payer MEDICARE, SELFPAY ==
--- NOTE | ~2024-10-20 | MR_ITS ---
EXAMINATION: MR BRAIN WITHOUT AND WITH CONTRAST CLINICAL INFORMATION: Lung cancer. Concerning metastatic disease. COMPARISON: November 29, 2022. TECHNIQUE: Multiplanar, multisequence MRI of the brain was obtained before and after the intravenous administration of 6.0 mL gadolinium based (Gadavist) without reported immediate complications.. FINDINGS: No restricted diffusion. No abnormal enhancement within the intra-axial or extra-axial compartment of the cranium. Bilateral multifocal patchy and punctate deep periventricular white matter deep white matter and subcortical white matter hyperintense T2 FLAIR signal involving centrum semiovale and pittman radiata and olga. Prominent perivascular spaces both hemispheres. Probable old lacunar infarcts basal ganglia. Prominence of the extra-axial CSF spaces cerebral sulci and ventricles likely age-related volume loss. The main cerebral venous sinuses are patent without intraluminal filling defects. Flow-void signal within the main vessels is normal. Sellar/suprasellar region demonstrated no signal abnormality or masses. Craniocervical junction demonstrates normal position of the cerebellar tonsils. There is a polypoid mucosal thickening and secretions with the mucosal enhancement and no restricted diffusion centered in the left sphenoid sinus and left sphenoid sinus recess. No gross enhancing lesions in the orbits. MR/MR head/brain wo/w con IMPRESSION: No intracranial metastasis. Extensive White matter disease. Differential diagnostic considerations include small vessel occlusive disease versus posttreatment changes. Acute on chronic left sphenoid sinus disease. Recommend direct inspection. No acute stroke or acute brain abnormality. Electronically signed by: Dago Nathan MD 10/21/2024 07:58 AM EDT
--- OUTSIDE RECORDS SUMMARY | 2024-10-20 15:20 | XMS_ITS | Patient Health Record ---
Author Organization [facility] Address [address] [place] [address] Care Team Providers Care Label Maker Name Role Phone Jose Gonzales MD Primary Care Provider Elton Sandy Unavailable [phone] Reason For Referral No Information Medications Medication SIG (Take, Route, Fr equency, Duration) Notes Start Date End Date Status FLUoxetine HCl 10 MG 1 capsule in the mo rning Orally Once a day Active Simvastatin 40 MG 1 tablet in the even ing Orally Once a day Active Warfarin Sodium 5 MG 1 tablet Orally Once a day Active Problems Problem Type SNOMED Code ICD Code Onset Dates Problem Status W/U Status Risk Notes Problem [id number] Encounter for screening for malignant neoplasm of colon (Z12.11) Active confirmed Problem Screening for malignant neoplasm of rectum (783187432) Encounter for screening for malignant neoplasm of rectum (Z12.12) Active confirmed Problem 553007185 Long-term (current) use of anticoagulants (Z79.01) Active confirmed Plan Of Treatment Future Test Test Name Order Date COLONOSCOPY 04/24/2016 Insurance Providers Payer Name Payer Address Payer Phone Subscriber Number Group Number Insured Name Patient Relationship to Insured Coverage Start Date Coverage End Date MEDICARE [place] [address] [place] [address] [id number] MATTHEW PLATA Self - patient is the insured [employer] CLAIM[employer] [address] [place] [address] [phone] [id number] MATTHEW PLATA Self - patient is the insured Medical (General) History Medical History History ICD Code 06-13-2006 upper endoscopy--gastric diver ticulum, gastritis, HH 4--2005 colonoscopy--negat dilia for polyps--revealed sigmoid diverticulosis and internal hemorrhoids Denies IL,DM,CVA,renal disease Collapsed lung in 2014--had a chest tube by Dr. Mercado Hyperlipidemia Depression On Coumadin in relation to the previous heart surgery Surgical History Surgery Date(Month/Year) Open heart surgery for repai r of what sounds like an atrial septal defect in 2000 Carotid arteries-- both Squamous cell skin cancers
--- OUTSIDE RECORDS SUMMARY | 2024-10-20 15:20 | XMS_ITS | Patient Health Record ---
Author Organization [facility] Address [address] [place] [address] Care Team Providers Care Invisible Braces Orthodontist Name Role Phone Yamlie Hearn MD Primary Care Provider Edmar Rubin Unavailable [phone] Judy Quintana Unavailable [phone] Allergies No Known Allergies Reason For Referral No Information Medications Medication SIG (Take, Route, Frequency, Duration) Notes Start Date End Date Status amLODIPine Besylate 10 MG 1 tablet Orall y Once a day Active FLUoxetine HCl 10 MG 1 capsule Orally On ce a day Active amLODIPine Besylate Active Jantoven 5 MG Oral; Duration: 90 Not-Taking Rosuvastatin Calcium 40 MG 1 tablet Oral ly Once a day Active Eliquis 5 MG as directed Orally Active Levothyroxine Sodium 50 MCG Oral; Duration: 30 Not-Takin g FLUoxetine HCl 10 MG Oral; Duration: 90 Not-Taking Vit Q27-Nvultqhmaz-Glaq-Zczn Not -Taking Rosuvastatin Calcium Active Betamethasone Dipropionate Aug 0.05 % External; Duration: 10 Not-T aking Simvastatin 40 MG Oral; Duration: 90 Not-Taking Warfarin Sodium 5 MG 1 tablet Orally Onc e a day Not-Taking Immunizations Vaccine Route Administration Date Status Comme nts Influenza Unknown 01/21/2024 Administered Social History Tobacco Use: Social History Observation Description Date Details (start date - stop date) Never Smoker NA - NA Tobacco use other than smoking: Question Answer Notes Are you an other tobacco user? No Tobacco Control (Standard) Question Answer Notes Tobacco use: Nonsmoker Additional Findings: Tobacco non-user Current no nsmoker AUDIT-C (Standard) Question Answer Notes Did you have a drink containing alcohol in the p ast year? No Points 0 Interpretation Negative Problems Problem Type SNOMED Code ICD Code Onset Dates Problem Status W/U Status Risk Notes Problem Bilateral atherosclerosis of arteries of lower limbs (disorder) (93956968341604267 ) 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 (I70.203) Active confirmed Q7(A), Q8(2B), Q9(1B,2 C) Vital Signs Blood pressure diastolic 60 mm Hg 10/01/2024 Height 5 ft 4 in in 10/01/2024 Blood pressure systolic 120 mm Hg 10/01/2024 Weight 125 lbs 10/01/2024 BMI 21.45 kg/m2 10/01/2024 Procedures Procedure Date Ordered Date Performed Result Body Sit e 80960-TYTYJZR NAIL, 1-5 06/29/2024 N/A 32551-LIJJ SKIN LESIONS, 2 TO 4 06/29/2024 N/A Z9477-XFWOTVHM DYSTROPHIC NAILS ANY # 06/29/2024 N/A 92619-CRIDACA NAIL, 1-5 10/01/2024 N/A 47785-QPNJ SKIN LESIONS, 2 TO 4 10/01/2024 N/A D4794-NDDJHIOE DYSTROPHIC NAILS ANY # 10/01/2024 N/A Encounters Encounter Location Date Provider Diagnosis [facility] [address] [address] 06/29/2024 Edmar Maier 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 I70.203 ; Tinea unguium B35.1 ; Pain in right toe(s) M79.674 ; Pain in left toe(s) M79.675 ; Other hammer toe(s) (acquired), right foot M20.41 and Arthritis of joint of lesser toe, right M19.071 [facility] [address] [address] 10/01/2024 Edmar Maier Tinea unguium B35.1 ; 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 I70.203 ; Pain in right toe(s) M79.674 and Pain in left toe(s) M79.675 Assessments Encounter Date Diagnosis (ICD Code) Assessment Notes Treatment Notes Treatment Clinical Notes Section Notes 06/29/2024 Tinea unguium (ICD-10 - B35.1) 06/29/2024 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 (ICD-10 - I70.203) Q7(A), Q8(2B), Q9(1B,2C) 10/01/2024 Tinea unguium (ICD-10 - B35.1) 10/01/2024 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 (ICD-10 - I70.203) Q7(A), Q8(2B), Q9(1B,2C) 10/01/2024 Pain in right toe(s) (ICD-10 - M79.674) 06/29/2024 Pain in right toe(s) (ICD-10 - M79.674) 06/29/2024 Pain in left toe(s) (ICD-10 - M79.675) 10/01/2024 Pain in left toe(s) (ICD-10 - M79.675) 06/29/2024 Other hammer toe(s) (acquired), right foot (ICD-10 - M20.41) 06/29/2024 Arthritis of joint of lesser toe, right (ICD-10 - M19.071) Plan Of Treatment Pending Test Test Name Order Date X ray : Foot, right 2V 08/11/2017 X ray : Foot, right 3V 06/29/2024 11711-UYXJZKQ NAIL, 1-5 06/29/2024 81381-KTWAEQU NAIL, 1-5 10/01/2024 23201-EXGM SKIN LESIONS, 2 TO 4 10/02/19 25 38750-OYZR SKIN LESIONS, 2 TO 4 06/30/19 25 U2698-YBGEQKMP DYSTROPHIC NAILS ANY # [id number] DYSTROPHIC NAILS ANY # [id number] TENDON SHEATH/LIGAMENT 0 09/10/2017 Next Appt Details Provider Name:Edmar Maier , 01/04/2025 09:00:00 AM, [address] [facility], [place], [address], Insurance Providers Payer Name Payer Address Payer Phone Subscriber Number Group Number Insured Name Patient Relationship to Insured Coverage Start Date Coverage End Date Medicare National [employer]t [employer] [address] [place] [address] [phone] [id number] Aneta Broussard Self - patient is the insured 7 [facility] [address] [place] [address] [id number] Aneta Broussard Self - patient is the insured 7 Medical (General) History Medical History History ICD Code Broken bones Skin Cancer Measles Mumps Chicken pox CAD (Cholesterol) covid-19 Depression High Blood Pressure Lung cancer A fib Surgical History Surgery Date(Month/Year) carotid artery 2010
== END 2024-10-20 14:57 | disposition home or self-care (01) ==
LOC: HO.MRI 14:56
PROVIDERS: PCP Internal Medicine; Visit Provider Internal Medicine
DX: C34.91 Malignant neoplasm of unspecified part of right bronchus or lung (principal)
CPT/HCPCS: 70553; A9585

== ENCOUNTER → 2024-10-20 14:56 | Outpatient (BNV) | payer MEDICARE, SELFPAY | PROVIDERS: PCP Internal Medicine; Visit Provider Radiology Diagnostic Radiology | DX: J01.30 Acute sphenoidal sinusitis, unspecified (principal); J32.3 Chronic sphenoidal sinusitis; R90.82 White matter disease, unspecified | CPT/HCPCS: 70553 ==

== ENCOUNTER 2025-01-18 13:38 | Outpatient (AMB) | payer MEDICARE, SELFPAY ==
--- OUTSIDE RECORDS SUMMARY | 2024-08-10 04:30 | XMS_ITS ---
Author Organization [facility] сергей [place] Address [address] [place] [address] Care Team Providers Care Electric Meter Tester Helper Name Role Phone Yamile Hearn MD Primary Care Provider Edmar Rubin Unavailable [phone] Judy Quintana Unavailable [phone] REASON FOR VISIT Seen Sooner Medications Medication SIG (Take, Route, Frequency, Duration) Notes Start Date End Date Status Simvastatin 40 MG Oral; Duration: 90 Unknown Warfarin Sodium 5 MG 1 tablet Orally Onc e a day Unknown Vit J14-Eahsfuomay-Lojc-Cbka Unk nown Betamethasone Dipropionate Aug 0.05 % [...] No Encounters Encounter Location Date Provider Diagnosis [facility] [address] [place] [address] 08/10/2024 Judy Quintana Plan Of Treatment Next Appt Details Provider Name:Edmar Maier , 05/10/2025 01:30:00 PM, [address] [place], [address], Progress Notes * Aneta PLATA ADOB:1940 (84 yo F)Acc No.[id number]:08/10/2024 Progress Notes Patient: Aneta RIOS Provider: Srikanth Quintana DPM :1940 A ge:84 Y S ex:Female Date:08/10/2024 Address:[address] [place] [address] [facility] Pcp:Yamile Hearn MD Subjective: * Chief Complaints: [...] enies. C ardiovascular: Pacemaker d enies. 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 W PW d enies, denies. [...] Orally Once a day , Unknown Vit K01-Kxaewahcgz-Wpdy-Some , Unknown Betamethasone Dipropionate Aug 0.05 % [...] 0 08/10/2024 Generated for Nargis velasco/Shemar/Omaira on: 0 01/18/2025 02:55 PM EDT
--- OUTSIDE RECORDS SUMMARY | 2025-01-04 05:00 | XMS_ITS ---
[facility] [place] Address [address] [place] [address] Care Team Providers Care Technical Training Manager Name Role Phone Yamile Hearn MD Primary Care Provider Edmar Rubin Unavailable [phone] Encounters Encounter Location Date Provider Diagnosis [facility] [address] [place] [address] 01/04/2025 Edmar Maier Plan Of Treatment Next Appt Details Provider Name:Edmar Maier , 05/10/2025 01:30:00 PM, [address] [place], [address], Progress Notes * Aneta PLATA ADOB:1940 (84 yo F)Acc No.[id number]:01/04/2025 Progress Note Patient: Aneta RIOS Provider: Qiana Maier DPM :1940 A ge:84 Y S ex:Female Date:01/04/2025 [facility] [place] Pcp:Yamile Hearn MD Subjective: * Chief Complaints: [...] 0 01/04/2025 Generated for Nargis velasco/Shemar/Omaira on: 0 01/18/2025 02:56 PM EDT
--- NOTE | 2025-01-18 13:40 | MHC.OFFVIS ---
Vital Signs 01/18/25 13:41 Height 5 ft 4 in Weight 125 lb BMI 21.5 BP 140/68 H Blood Pressure Location Lt brachial Position Sitting Pulse 72 Pulse Source Pulse Oximeter Intake Visit Reasons: 6 mth f/up Allergies atorvastatin Adverse Reaction (Intermediate, Verified 12/29/24 11:20) Gastrointestinal Upset lovastatin Adverse Reaction (Intermediate, Verified 12/29/24 11:20) Gastrointestinal Upset Medication List - Last Reconciled 01/18/25 by Juarez Coreas MD acetaminophen 1,000 mg (2 x 500 mg) PO Q6H PRN amlodipine 10 mg PO DAILY apixaban (Eliquis) 5 mg PO BID fluoxetine 10 mg PO DAILY levothyroxine 50 mcg PO DAILY lorazepam 0.5 mg PO DAILY PRN pembrolizumab 200 mg IV Q3W rosuvastatin 40 mg PO DAILY umeclidinium-vilanterol 62.5-25 mcg/actuation (Anoro Ellipta) 1 ea inhalation DAILY HPI Comments Details: Aneta returns for follow-up regarding atrial fibrillation, history of ASD repair and other concerns. No known coronary disease, myocardial infarction but there is a history of bilateral carotid endarterectomy. She also has lung cancer and sees Oncology. Since last seen, she has got no cardiac complaints or other concerns. [facility] Medical History (Updated 01/18/25 @ 14:53 by Juarez Coreas MD) Tubular adenoma Tubulovillous adenoma Annual physical exam Abnormal myocardial perfusion study Atrial septal defect Persistent atrial fibrillation COPD (chronic obstructive pulmonary disease) Tibia fracture Cancer, skin, squamous cell Anxiety Hypothyroid High cholesterol Surgical History Hx of bilateral cataract extraction History of esophagogastroduodenoscopy (EGD) H/O colonoscopy Status post bilateral carotid endarterectomy Status post cardiac surgery Family History Maternal Aunt Cervical cancer Social History Household Members: Significant Other Housing: House Are you a primary urgent care technician to a significant other at home: No Alcohol intake: current Alcohol intake frequency: does not drink Patient Tobacco Use Status: Former Tobacco user Tobacco use type: Cigarette e-Cigarette/Vaping Use: Never Used Advance Directives Date on File: 04/04/20 service: No Current occupational status: retired Cognitive needs: No Hearing needs: No Vision needs: Yes Review of Systems Const Denies weakness ENT Denies dizziness Card Denies chest pain, Denies chest pain with activity, Denies syncope, Denies rapid heart rate, Denies pedal edema, Denies edema, Denies leg edema, Denies lightheadedness, Denies palpitations, Denies dyspnea, Denies dyspnea on exertion and Denies orthopnea Resp Denies cough, Denies dyspnea and Denies dyspnea on exertion GI Denies hematochezia and Denies change in stool character Musc Denies abnormal gait, Denies muscle cramps, Denies muscle weakness, Denies numbness, Denies radiating pain into limb and Denies tingling Neuro Denies abnormal gait, Denies dizziness, Denies syncope, Denies numbness, Denies tingling and Denies weakness Endo Denies palpitations Physical Exam Vital Signs: Last Vital Signs Pulse 72 01/18/25 13:41 BP 140/68 H 01/18/25 13:41 BMI result Body Mass Index 21.5 Const General: comfortable and no acute distress Orientation/consciousness: patient oriented x3 HEENT Other: Unremarkable Head: Yes normal to inspection Neck Neck: Yes normal visual inspection Chest Chest palpation & inspection: normal inspection of the chest Resp Auscultation: clear to auscultation bilaterally Cardio Palpation: normal PMI Heart sounds: S1 normal heart sound present, S2 normal heart sound present, no gallops, Murmur heart sound present systolic II/ and no rubs GI Palpation (GI): Soft to palpation Back/Spine/Pelvis Other: unremarkable Skin General skin exam: no rashes or lesions noted Neuro General: patient oriented x3 Extrem General: Yes normal to inspection Psych Mental Status: mental status grossly normal Office Procedures EKG Details: EKG with atrial fibrillation at 72/Min; incomplete right bundle-branch block pattern; cannot exclude old septal infarct; [place]. [address]-Zzkplsamnpahkpgap, Complete Assessment & Plan Assessment & Plan (1) Persistent atrial fibrillation: Code(s): I48.19 - Other persistent atrial fibrillation Category: Medical Plan: Not on rate control medications. Continue Eliquis. (2) Status post atrial septal defect repair: Code(s): Z87.74 - Personal history of (corrected) congenital malformations of heart and circulatory system Category: Surgical Plan: Remote history. No recent concerns. (3) Abnormal myocardial perfusion study: Code(s): R94.39 - Abnormal result of other cardiovascular function study Category: Medical Plan: Prior myocardial perfusion imaging study showed possible mild ischemia in the distal lateral wall and apex. Clinically, she has got absolutely no angina. On statins. Last LDL 60 mg/dL. With comorbidities and malignancy history, most likely conservative care only. (4) Non-rheumatic tricuspid valve insufficiency: Code(s): I36.1 - Nonrheumatic tricuspid (valve) insufficiency Category: Medical Plan: On the echocardiogram, moderate tricuspid regurgitation with moderate pulmonary hypertension. No symptoms or signs of right heart failure. (5) Status post bilateral carotid endarterectomy: Comment: right 07/2006 & left 06/2006 Code(s): Z98.890 - Other specified postprocedural states Category: Surgical Plan: Carotid Doppler-07/2024% stenosis bilaterally. We will follow by ultrasound. (6) Essential hypertension: Code(s): I10 - Essential (primary) hypertension Category: Medical Plan: On amlodipine. Add Losartan. Advised to do labs few days after starting the medication. There is already an order from PCP. Medications: New losartan 50 mg PO DAILY 90 tabs 1RF Coding Level of Care Code Est Pt Level 4 (57601) Complex EM visit Add On G2211 Diagnoses Persistent atrial fibrillation I48.19 Status post atrial septal defect repair Z87.74 Abnormal myocardial perfusion study R94.39 Non-rheumatic tricuspid valve insufficiency I36.1 Status post bilateral carotid endarterectomy Z98.890 Essential hypertension I10 CPT Codes EKG - CPT: 47582-Oxxienacblavkaumw, Complete ([id number])
[2025-01-18 13:41] VITALS: BP 140/68; PULSE 72; BMI 21.5
--- OUTSIDE RECORDS SUMMARY | 2025-01-18 14:56 | XMS_ITS | Patient Health Record ---
Author Organization [facility] Address [address] [place] [address] Care Team Providers Care Saw Cleaner Name Role Phone Jose Gonzales MD Primary Care Provider Elton Sandy Unavailable [phone] Reason For Referral No Information Medications Medication [...] Problem Status W/U Status Risk Notes Problem [id number] Encounter for screening for malignant neoplasm of colon (Z12.11) Active confirmed Problem Screening for malignant neoplasm of rectum (914351006) Encounter for screening for malignant neoplasm of rectum (Z12.12) Active confirmed Problem [id number] Long-term (current) use of anticoagulants (Z79.01) Active confirmed Plan Of Treatment Future Test Test Name Order Date COLONOSCOPY 04/24/2016 Insurance Providers Payer Name Payer Address Payer Phone Subscriber Number Group Number Insured Name Patient Relationship to Insured Coverage Start Date Coverage End Date MEDICARE OF [place] [address] [place] [address] [id number] MATTHEW PLATA Self - patient is the insured MEDEX ATTN CLAIMS [address] [place] [address] [id number] MATTHEW PLATA Self - patient is the insured Medical (General) History Medical History History ICD Code 06-13-2006 upper endoscopy--gastric diver ticulum, gastritis, HH 4--2005 colonoscopy--negat dilia for polyps--revealed sigmoid diverticulosis and internal hemorrhoids Denies NE,DM,CVA,renal disease Collapsed lung in 2014--had a chest tube by Dr. Mercado Hyperlipidemia Depression On Coumadin in relation to the previous heart surgery Surgical History Surgery Date(Month/Year) Open heart surgery for repai r of what sounds like an atrial septal defect in 2000 Carotid arteries-- both Squamous cell skin cancers
--- OUTSIDE RECORDS SUMMARY | 2025-01-18 14:56 | XMS_ITS | Patient Health Record ---
[facility] [place] Address [address] [place] [address] Care Team Providers Care Baler Name Role Phone Yamile Hearn MD Primary Care Provider Edmar Rubin Unavailable [phone] Judy Quintana Unavailable [phone] Allergies No Known Allergies Reason For Referral No Information Medications Medication SIG (Take, Route, Frequency, Duration) Notes Start Date End Date Status FLUoxetine HCl 10 MG Oral; Duration: 90 Not-Taking Levothyroxine Sodium 50 MCG Oral; Duration: 90 Days Active Warfarin Sodium 5 MG 1 tablet Orally Onc e a day Not-Taking Simvastatin 40 MG Oral; Duration: 90 Not-Taking FLUoxetine HCl 10 MG 1 capsule Orally On ce a day Active amLODIPine Besylate 10 MG 1 tablet Orall y Once a day Active Levothyroxine Sodium 50 MCG Oral; Duration: 30 Active Eliquis 5 MG as directed Orally Active Vit K98-Fvugcleigr-Dmpc-Yhyv Not -Taking Rosuvastatin Calcium 40 MG 1 tablet Oral ly Once a day Active Jantoven 5 MG Oral; Duration: 90 Not-Taking amLODIPine Besylate Active Betamethasone Dipropionate Aug 0.05 % External; Duration: 10 Not-T aking Rosuvastatin Calcium Active Immunizations Vaccine Route Administration Date Status Comme [...] atherosclerosis of arteries of lower limbs (disorder) ([id number] ) 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 (I70.203) Active confirmed Q7(A), Q8(2B), Q9(1B,2 C) Vital Signs Blood pressure diastolic 65 mm Hg 01/11/2025 Height 5 ft 4 in in 01/11/2025 Blood pressure systolic 128 mm Hg 01/11/2025 Weight 125 lbs 01/11/2025 BMI 21.45 kg/m2 01/11/2025 Procedures Procedure Date Ordered Date Performed Result Body Sit e 46987-UEGQKZI NAIL, 1-5 06/29/2024 N/A 14526-CMAR SKIN LESIONS, 2 TO 4 06/29/2024 N/A N7600-ANXMWWSU DYSTROPHIC NAILS ANY # 06/29/2024 N/A 60323-PXRAJPR NAIL, 1-5 10/01/2024 N/A 86112-ZHVW SKIN LESIONS, 2 TO 4 10/01/2024 N/A S2129-MBCVXWOD DYSTROPHIC NAILS ANY # 10/01/2024 N/A 63119-NTIGFOE NAIL, 1-5 01/11/2025 N/A 16889-BTAQ SKIN LESIONS, 2 TO 4 01/11/2025 N/A Z2491-PZDWQPGF DYSTROPHIC NAILS ANY # 01/11/2025 N/A Encounters Encounter Location Date Provider Diagnosis [facility] [address] [address] 06/29/2024 Edmar Maier 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 I70.203 ; Tinea unguium B35.1 ; Pain in right toe(s) M79.674 ; Pain in left toe(s) M79.675 ; Other hammer toe(s) (acquired), right foot M20.41 and Arthritis of joint of lesser toe, right M19.071 [facility] [address] [address] 10/01/2024 Edmar Maier Tinea unguium B35.1 ; 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 I70.203 ; Pain in right toe(s) M79.674 and Pain in left toe(s) M79.[address] [address] 01/11/2025 Edmar Maier Tinea unguium B35.1 ; 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 I70.203 ; Pain in right toe(s) M79.674 and Pain in left toe(s) M79.[address] [address] 01/03/2025 Edmar Maier Assessments Encounter Date Diagnosis (ICD Code) Assessment Notes Treatment Notes Treatment Clinical Notes Section Notes 06/29/2024 Tinea unguium (ICD-10 - B35.1) 06/29/2024 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 (ICD-10 - I70.203) Q7(A), Q8(2B), Q9(1B,2C) 10/01/2024 Tinea unguium (ICD-10 - B35.1) 10/01/2024 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 (ICD-10 - I70.203) Q7(A), Q8(2B), Q9(1B,2C) 01/11/2025 Tinea unguium (ICD-10 - B35.1) 01/11/2025 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 (ICD-10 - I70.203) Q7(A), Q8(2B), Q9(1B,2C) 10/01/2024 Pain in right toe(s) (ICD-10 - M79.674) 01/11/2025 Pain in right toe(s) (ICD-10 - M79.674) 06/29/2024 Pain in right toe(s) (ICD-10 - M79.674) 06/29/2024 Pain in left toe(s) (ICD-10 - M79.675) 01/11/2025 Pain in left toe(s) (ICD-10 - M79.675) 10/01/2024 Pain in left toe(s) (ICD-10 - M79.675) 06/29/2024 Other hammer toe(s) (acquired), right foot (ICD-10 - M20.41) 06/29/2024 Arthritis of joint of lesser toe, right (ICD-10 - M19.071) Plan Of Treatment Pending Test Test Name Order Date X ray : Foot, right 2V 08/11/2017 X ray : Foot, right 3V 06/29/2024 10362-BDUSCCZ NAIL, 1-5 10/01/2024 63206-QYXAQPD NAIL, 1-5 06/29/2024 18263-DQGDDHV NAIL, 1-5 01/11/2025 53776-EQBY SKIN LESIONS, 2 TO 4 01/12/20 25 05998-BZFC SKIN LESIONS, 2 TO 4 10/02/19 25 38865-MMNY SKIN LESIONS, 2 TO 4 06/30/19 25 A9196-ONKIXSHA DYSTROPHIC NAILS ANY # G4261-ZEKIMPIV DYSTROPHIC NAILS ANY # A3649-NVLXGLPZ DYSTROPHIC NAILS ANY # 40935,Z2071-ABC TENDON SHEATH/LIGAMENT 0 09/10/2017 Next Appt Details Provider Name:Edmar Maier , 05/10/2025 01:30:00 PM, [address] [place], [address], Insurance Providers Payer Name Payer Address Payer Phone Subscriber Number Group Number Insured Name Patient Relationship to Insured Coverage Start Date Coverage End Date Medicare National Govt [employer] [facility] [address] [facility] [place] [address] [id number] Aneta Broussard Self - patient is the insured 7 [employer] Blue [employer] [address] [place] [address] [id number] Aneta Broussard Self - patient is the insured 7 Medical (General) History Medical History History ICD Code Broken bones Skin Cancer Measles Mumps Chicken pox CAD (Cholesterol) covid-19 Depression High Blood Pressure Lung cancer A fib Surgical History Surgery Date(Month/Year) carotid artery 2009
== END 2025-01-18 14:02 | disposition home or self-care (01) ==
LOC: HO.HCS 13:39
PROVIDERS: PCP Internal Medicine; Visit Provider Internal Medicine
DX: I48.19 Other persistent atrial fibrillation (principal); Z87.74 Personal history of (corrected) congenital malformations of heart and circulatory system; R94.39 Abnormal result of other cardiovascular function study; I36.1 Nonrheumatic tricuspid (valve) insufficiency; Z98.890 Other specified postprocedural states; I10 Essential (primary) hypertension
CPT/HCPCS: 93010; 99214; G2211

== ENCOUNTER → 2025-01-18 13:38 | Outpatient (BNVA) | payer MEDICARE, SELFPAY | PROVIDERS: PCP Internal Medicine; Visit Provider Internal Medicine | DX: I36.1 Nonrheumatic tricuspid (valve) insufficiency (principal); R94.39 Abnormal result of other cardiovascular function study; I48.19 Other persistent atrial fibrillation; Z87.74 Personal history of (corrected) congenital malformations of heart and circulatory system; I10 Essential (primary) hypertension | CPT/HCPCS: 93005; 99212 ==

== ENCOUNTER 2025-01-27 08:13 | Outpatient (REF) | payer MEDICARE, SELFPAY ==
--- NOTE | ~2025-01-27 | CT_ITS ---
CLINICAL HISTORY: Assess for recurrence CT chest with contrast Comparison: 09/25/2022 01:36 PM EDT: CTPR CONTRAST Findings: There are moderate coronary artery calcifications. There is pulmonary artery hypertension. The main pulmonary trunk is dilated to 4.2 cm. The visualized thyroid and mediastinum are unremarkable. There is a right breast lipoma. Spiculated mass in the right upper lobe is substantially smaller than previously noted measuring 1.6 x 1.4 x 2.4 cm. Previously it measured approximately 2.8 x 3 x 2.6 cm. No new nodules are noted. There is lingular atelectasis. There is mild centrilobular emphysema. There are bilateral renal cysts. No acute fractures. There is dilatation of the atria. IMPRESSION: 1. Spiculated mass in the right upper lobe is significantly smaller than on the prior study. 2. Mild centrilobular emphysema. 3. Moderate coronary artery calcifications. 4. Chronically dilated atria. 5. Bilateral renal cysts. 6. Pulmonary artery hypertension. 7. Right breast lipoma, unchanged. This document has been electronically signed by: Reinaldo Jones MD on 01/28/2025 10:28:55
[2025-01-27] MEDS: iohexoL 350 MG/ML 100 ML INFUS..BTL 85 ML IV (08:54)
== END 2025-01-27 08:14 | disposition home or self-care (01) ==
LOC: HO.CT 08:13
PROVIDERS: PCP Internal Medicine; Visit Provider Internal Medicine
DX: C34.91 Malignant neoplasm of unspecified part of right bronchus or lung (principal)
CPT/HCPCS: 71260; Q9967

== ENCOUNTER 2025-02-01 09:04 | Outpatient (REF) | payer MEDICARE, SELFPAY ==
--- OUTSIDE RECORDS SUMMARY | 2024-08-10 04:30 | XMS_ITS ---
Author Organization [facility] сергей [place] Address [address] [place] [address] Care Team Providers Care Used Car Make Ready Mechanic Name Role Phone Yamile Hearn MD Primary Care Provider Edmar Rubin Unavailable [phone] Judy Quintana Unavailable [phone] REASON FOR VISIT Seen Sooner Medications Medication SIG (Take, Route, Frequency, Duration) Notes Start Date End Date Status Simvastatin 40 MG Oral; Duration: 90 Unknown Warfarin Sodium 5 MG 1 tablet Orally Onc e a day Unknown Vit O48-Iuaebiqcul-Qynw-Gmjm Unk nown Betamethasone Dipropionate Aug 0.05 % [...] No Encounters Encounter Location Date Provider Diagnosis [facility] [address] [place] [address] 08/10/2024 Judy Quintana Plan Of Treatment Next Appt Details Provider Name:Edmar Maier , 05/10/2025 01:30:00 PM, [address] [place], [address], Progress Notes * Aneta PLATA ADOB:1940 (84 yo F)Acc No.[id number]:08/10/2024 Progress Notes Patient: Aneta RIOS Provider: Srikanth Quintana DPM :1940 A ge:84 Y S ex:Female Date:08/10/2024 Address:[address] [place] [address] [facility] Pcp:Yamile Hearn MD Subjective: * Chief Complaints: [...] enies. C ardiovascular: Pacemaker d enies. 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 W PW d enies, denies. [...] Orally Once a day , Unknown Vit O14-Uktrsubwqq-Mphw-Opso , Unknown Betamethasone Dipropionate Aug 0.05 % [...] 0 08/10/2024 Generated for Nargis velasco/Shemar/Omaira on: 1 09:45 AM EDT
--- OUTSIDE RECORDS SUMMARY | 2025-01-04 05:00 | XMS_ITS ---
[facility] [place] Address [address] [facility] [place] [address] Care Team Providers Care Splicing Machine Operator Name Role Phone Yamile Hearn MD Primary Care Provider Edmar Rubin Unavailable [phone] Encounters Encounter Location Date Provider Diagnosis [facility] [address] [place] [address] 01/04/2025 Edmar Maier Plan Of Treatment Next Appt Details Provider Name:Edmar Maier , 05/10/2025 01:30:00 PM, [address] [place], [address], Progress Notes * Aneta PLATA ADOB:1940 (84 yo F)Acc No.[id number]:01/04/2025 Progress Note Patient: Aneta RIOS Provider: Qiana Maier DPM :1940 A ge:84 Y S ex:Female Date:01/04/2025 [facility] [place] Pcp:Yamile Hearn MD Subjective: * Chief Complaints: * * Medical History: Objective: * Vitals: Assessment: Plan: * Treatment: * Images: * The named appointment provid er may or may not be the originator of this progress note, and it is not deemed complete until electronically signed by the appointment provider. Sign off status: Pending * Provider: Qiana aMier DPM Date: 0 01/04/2025 Generated for Nargis velasco/Shemar/Omaira on: 1 09:45 AM EDT
--- OUTSIDE RECORDS SUMMARY | 2025-02-01 09:45 | XMS_ITS | Patient Health Record ---
Author Organization [facility] Address [address] [place] [address] Care Team Providers Care Academic Services Coordinator Name Role Phone Jose Gonzales MD Primary Care Provider Maxa Elton Caceres Unavailable [phone] Reason For Referral No Information Medications Medication [...] Problem Status W/U Status Risk Notes Problem Screening for malignant neoplasm of colon (730889854) Encounter for screening for malignant neoplasm of colon (Z12.11) Active confirmed Problem Screening for malignant neoplasm of rectum (966936308) Encounter for screening for malignant neoplasm of rectum (Z12.12) Active confirmed Problem Long-term current use of anticoagulant (400784528) Long-term (current) use of anticoagulants (Z79.01) Active confirmed Plan Of Treatment Future Test Test Name Order Date COLONOSCOPY 04/24/2016 Insurance Providers Payer Name Payer Address Payer Phone Subscriber Number Group Number Insured Name Patient Relationship to Insured Coverage Start Date Coverage End Date MEDICARE OF [place] [address] [place] [address] [phone] [id number] MATTHEW PLATA Self - patient is the insured MED[employer] ATTN CLAIMS [address] [place] [address] [id number] MATTHEW PLATA Self - patient is the insured Medical (General) History Medical History History ICD Code 06-13-2006 upper endoscopy--gastric diver ticulum, gastritis, HH 4-18-2005 colonoscopy--negat dilia for polyps--revealed sigmoid diverticulosis and internal hemorrhoids Denies PA,DM,CVA,renal disease Collapsed lung in 2014--had a chest tube by Dr. Mercado Hyperlipidemia Depression On Coumadin in relation to the previous heart surgery Surgical History Surgery Date(Month/Year) Open heart surgery for repai r of what sounds like an atrial septal defect in 2000 Carotid arteries-- both Squamous cell skin cancers
--- OUTSIDE RECORDS SUMMARY | 2025-02-01 09:46 | XMS_ITS | Patient Health Record ---
[facility] Say[facility] Address [address] [place] [address] Care Team Providers Care Scrub Wheel Operator Name Role Phone Yamile Hearn MD Primary Care Provider Edmar Rubin Unavailable [phone] Judy Quintana Unavailable [phone] Allergies No Known Allergies Reason For Referral [...] 5 MG as directed Orally Active Vit H91-Dxfkxhiibi-Lbjg-Byzn Not -Taking Rosuvastatin Calcium 40 MG 1 [...] atherosclerosis of arteries of lower limbs (disorder) (88452751269239458 ) 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 (I70.203) Active confirmed Q7(A), Q8(2B), Q9(1B,2 C) Vital Signs Blood pressure diastolic 65 mm Hg 01/11/2025 Height 5 ft 4 in in 01/11/2025 Blood pressure systolic 128 mm Hg 01/11/2025 Weight 125 lbs 01/11/2025 BMI 21.45 kg/m2 01/11/2025 Procedures Procedure Date Ordered Date Performed Result Body Sit e 73386-HFHCOGN NAIL, 1-5 06/29/2024 N/A 63100-ZGHH SKIN LESIONS, 2 TO 4 06/29/2024 N/A Y7029-VCDDTYKS DYSTROPHIC NAILS ANY # 06/29/2024 N/A 45429-TQMOFBN NAIL, 1-5 10/01/2024 N/A 77982-WYXI SKIN LESIONS, 2 TO 4 10/01/2024 N/A Q5672-YKYBSEWE DYSTROPHIC NAILS ANY # 10/01/2024 N/A 62961-VJCGKLC NAIL, 1-5 01/11/2025 N/A 80645-PFTA SKIN LESIONS, 2 TO 4 01/11/2025 N/A D3653-SQMLNSVU DYSTROPHIC NAILS ANY # 01/11/2025 N/A Encounters Encounter Location Date Provider Diagnosis [facility] [address] [address] 06/29/2024 Edmar Maier 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 I70.203 ; Tinea unguium B35.1 ; Pain in right toe(s) M79.674 ; Pain in left toe(s) M79.675 ; Other hammer toe(s) (acquired), right foot M20.41 and Arthritis of joint of lesser toe, right M19.071 [facility] [address] [address] 10/01/2024 Edmar Maier Tinea unguium B35.1 ; 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 I70.203 ; Pain in right toe(s) M79.674 and Pain in left toe(s) M79.[address] [address] 01/11/2025 Edmar Maier Tinea unguium B35.1 ; 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 I70.203 ; Pain in right toe(s) M79.674 and Pain in left toe(s) M79.[address] [address] 01/03/2025 Edmar Maier Assessments Encounter Date Diagnosis (ICD Code) Assessment Notes Treatment Notes Treatment Clinical Notes Section Notes 10/01/2024 Tinea unguium (ICD-10 - B35.1) 10/01/2024 [...] Pain in right toe(s) (ICD-10 - M79.674) 10/01/2024 Pain in right toe(s) (ICD-10 - M79.674) 01/11/2025 Pain in right toe(s) (ICD-10 - M79.674) 01/11/2025 Pain in left toe(s) (ICD-10 - M79.675) 10/01/2024 Pain in left toe(s) (ICD-10 - M79.675) 06/29/2024 Pain in left toe(s) (ICD-10 - M79.675) 06/29/2024 Other hammer toe(s) (acquired), right foot (ICD-10 - M20.41) 06/29/2024 Arthritis of joint of lesser toe, right (ICD-10 - M19.071) Plan Of Treatment Pending Test Test Name Order Date X ray : Foot, right 2V 08/11/2017 X ray : Foot, right 3V 06/29/2024 23011-IBTDJGB NAIL, 1-5 06/29/2024 90715-AUYCRLX NAIL, 1-5 01/11/2025 20353-QZJYJLN NAIL, 1-5 10/01/2024 97141-QZCT SKIN LESIONS, 2 TO 4 10/02/19 25 32757-DNCM SKIN LESIONS, 2 TO 4 01/12/20 25 48433-MYTE SKIN LESIONS, 2 TO 4 06/30/19 25 P0692-QOFEHLVD DYSTROPHIC NAILS ANY # J9296-EPUHKPOS DYSTROPHIC NAILS ANY # H8523-MQZFPJEI DYSTROPHIC NAILS ANY # 50883,S0115-KDY TENDON SHEATH/LIGAMENT 0 09/10/2017 Next Appt Details Provider Name:Edmar Maier , 05/10/2025 01:30:00 PM, [address] [place], [address], Insurance Providers Payer Name Payer Address Payer Phone Subscriber Number Group Number Insured Name Patient Relationship to Insured Coverage Start Date Coverage End Date Medicare National Govt [facility] [address] [facility] [place] [address] [id number] Aneta Broussard Self - patient is the insured 7 [employer] Blue [employer] [address] [place] [address] [id number] Aneta Broussard Self - patient is the insured 7 Medical (General) History Medical History History ICD Code Broken bones Skin Cancer Measles Mumps Chicken pox CAD (Cholesterol) covid-19 Depression High Blood Pressure Lung cancer A fib Surgical History Surgery Date(Month/Year) carotid artery 2009
[2025-02-01 10:14] LABS: MANUAL DIFF FLAG NO
[2025-02-01 10:26] LABS: Hematocrit 35.3 % (37.0-47.0); Hemoglobin 10.9 g/dl (12.0-16.0); Imm Gran Abs Auto 0.01 X10*3/uL (0.00-0.03); Imm Gran Pct Auto 0.2 % (0.0-0.4); Lymphocytes Absolute Auto 1.4 X10*3/uL (1.2-4.9); Mean Corpuscular HGB Conc 30.9 g/dl (31.0-35.0); Mean Corpuscular Hemoglobin 29.2 pg (27.0-33.0); Mean Corpuscular Volume 94.6 fL (80.0-98.0); NRBC Abs Auto 0.000 X10*3/uL (0.0-0.012); NRBC Pct Auto 0.0 /100WBC (0.0-0.2); Platelet Count 265 X10*3/uL (160-400); Red Blood Count 3.73 X10*6/uL (4.20-5.50); White Blood Count 5.0 X10*3/uL (4.8-10.8)
[2025-02-01 11:20] LABS: Alanine Aminotransferase 22 U/L (0-31); Albumin Level 4.3 g/dL (3.5-5.0); Alkaline Phosphatase 117 U/L (39-117); Anion Gap 11 (12-20); Aspartate Amino Transferase 37 U/L (5-31); Blood Urea Nitrogen 19 mg/dL (9-16); Calcium 9.0 mg/dL (8.4-10.2); Carbon Dioxide 27 mmol/L (22-29); Chloride 107 mmol/L (96-108); Estimated Glomerular Filt Rate > 60; Iron 31 mcg/dL (30-160); Percent Iron Saturation 10 % (15-50); Potassium 3.8 mmol/L (3.3-5.1); Sodium 141 mmol/L (135-145); Total Iron Binding Capacity 322 mcg/dL (228-428); Total Protein 6.9 g/dL (6.5-8.0); Unsaturated Iron Binding 291 ug/dL
[2025-02-01 11:35] LABS: Folate 12.4 ng/mL (> or = 4.0); Vitamin B12 359 pg/mL (200-900)
== END 2025-02-01 09:05 | disposition home or self-care (01) ==
LOC: HO.HMGCLDS 09:04
PROVIDERS: PCP Internal Medicine; Visit Provider Internal Medicine
DX: Z00.00 Encounter for general adult medical examination without abnormal findings (principal); C34.91 Malignant neoplasm of unspecified part of right bronchus or lung; E55.9 Vitamin D deficiency, unspecified; I10 Essential (primary) hypertension
CPT/HCPCS: 36415; 80053; 82306; 82607; 82746; 83540; 85025

== ENCOUNTER 2025-02-15 09:22 | Outpatient (AMB) | payer MEDICARE, SELFPAY ==
[2025-02-15 09:35] VITALS: BP 120/64; PULSE 55; RESP 17; TEMP 36.6; O2SAT 96; BMI 21.5
--- NOTE | 2025-02-15 09:35 | MHC.PC.OV ---
Vital Signs 02/15/25 09:35 02/15/25 10:57 Height 5 ft 4 in Weight 125 lb BMI 21.5 BP 120/64 140/80 H Blood Pressure Location Rt brachial Lt brachial Position Sitting Sitting Respiration 17 Pulse 55 Pulse Source Pulse Oximeter Temp 97.9 F Temp Source Oral Pulse Oximetry (%) 96 Oxygen Delivery Method Room Air Intake Visit Reasons: 6m follow up Intake Note: Pt is here today for 6 months follow up visit. Allergies atorvastatin Adverse Reaction (Intermediate, Verified 02/15/25 09:42) Gastrointestinal Upset lovastatin Adverse Reaction (Intermediate, Verified 02/15/25 09:42) Gastrointestinal Upset Tobacco use date assessed: 02/15/25 Fall risk assessment: No Falls in past year Last assessed Fall Risk: 02/15/25 Dental Screening Dental Screen Date: 09/14/24 HPI 6m follow up HPI Details Patient presents for the follow-up hypertension chronic AFib hypothyroidism hyperlipidemia. She completed 2 years of treatment for metastatic lung CA with pembrolizumab but developed recurrent squamous cell skin CA. The chemotherapy was stopped in December and patient will continue to follow-up with oncology every [address]. She was seen by radioactivity technician and losartan 50 mg was added to amlodipine but patient misunderstood directions and stopped taking amlodipine. She denies chest pain shortness or breath palpitations headaches. Patient has been taking fluoxetine for chronic depression. COPD is controlled on Anoro. [facility] Medical History (Updated 02/15/25 @ 10:57 by Yamile Hearn MD) Non-small cell cancer of right lung Tubular adenoma Tubulovillous adenoma Annual physical exam Abnormal myocardial perfusion study Atrial septal defect Persistent atrial fibrillation COPD (chronic obstructive pulmonary disease) Tibia fracture Cancer, skin, squamous cell Anxiety Hypothyroid High cholesterol Surgical History Hx of bilateral cataract extraction History of esophagogastroduodenoscopy (EGD) H/O colonoscopy Status post bilateral carotid endarterectomy Status post cardiac surgery Family History Maternal Aunt Cervical cancer Social History Household Members: Significant Other Housing: House Are you a primary behavioral health care manager to a significant other at home: No Alcohol intake: current Alcohol intake frequency: does not drink Patient Tobacco Use Status: Former Tobacco user Tobacco use type: Cigarette e-Cigarette/Vaping Use: Never Used Advance Directives Date on File: 04/04/20 service: No Current occupational status: retired Cognitive needs: No Hearing needs: No Vision needs: Yes Questionnaire PHQ-9 Over the last 2 weeks, how often have you been bothered by any of the following problems? 1. Little interest or pleasure in doing things: not at all 2. Feeling down, depressed, or hopeless: not at all 3. Trouble falling or staying asleep, or sleeping too much: not at all 4. Feeling tired or having little energy: several days 5. Poor appetite or overeating: not at all 6. Feeling bad about yourself - or that you are a failure or have let yourself or your family down: not at all 7. Trouble concentrating on things, such as reading the newspaper or watching television: not at all 8. Moving or speaking so slowly that other people could have noticed. Or the opposite - being so fidgety or restless that you have been moving around a lot more than usual: not at all 9. Thoughts that you would be better off or of hurting yourself in some way: not at all Total score: 1 Depression Screening Interpretation: Negative Depression Screening Done: Yes Source: Developed by Drs. Devang Jordan, Terra Arias, Irvin Gonzalez and colleagues, with an educational kristel from [employer]. Thrive Questionnaire Date Thrive assessed: 02/15/25 I am a: Patient What is your living situation today?: I have a steady place to live Within the past 12 months, did the food you bought not last and you didn't have the money to get more?: Never true Within the past 12 months, did you worry whether your food would run out before you got money to buy more?: Never true Do you have trouble paying for medicines?: No Do you have trouble getting transportation to medical appointments?: No Do you have trouble paying your heating and electricity bill?: No Do you have trouble taking care of your child, family member or friend?: No Do you have trouble with day-to-day activities such as bathing, preparing meals, shopping, managing finances, etc.?: No Are you currently unemployed and looking for a job?: No Are you interested in more education?: No Please select the resources that you would like help with: None Currently or been in a relationship where the following occur: No concerns reported THRIVE Score: 0 AUDIT C Alcohol Use Questionnaire (AUDIT-C) 1. How often do you have a drink containing alcohol?: Never Total Score: 0 SHADY-7 AMB Questionnaire SHADY-7 Date SHADY - 7 assessed: 02/15/25 Feeling nervous, anxious, or on edge: 0 = Not at all Not being able to stop or control worryin = Not at all Worrying too much about different things: 0 = Not at all Trouble relaxin = Not at all Being so restless that it is hard to sit still: 0 = Not at all Becoming easily annoyed or irritable: 0 = Not at all Feeling afraid as if something awful might happen: 0 = Not at all Total SHADY-7 score (0-4 normal; 5-9 mild; 10-14 moderate; 15-21 severe): 0 Source: Developed by Drs. Devang Jordan, Terra Arias, Irvin Gonzalez and colleagues, with an educational kristel from [employer]. Review of Systems Const All systems reviewed & are unremarkable except as noted in HPI and below Eyes Reports no additional complaints ENT Reports no additional complaints Card Reports no additional complaints Resp Reports no additional complaints Physical exam (Primary Care) Vital Signs: Last Vital Signs Temp 97.9 F 02/15/25 09:35 Pulse 55 02/15/25 09:35 Resp 17 02/15/25 09:35 BP 120/64 02/15/25 09:35 Pulse Ox 96 02/15/25 09:35 Oxygen Delivery Method Room Air 02/15/25 09:35 BMI result Body Mass Index 21.5 Tobacco/Smoking Status: Tobacco use Status Tobacco use date assessed 02/15/25 02/15/25 09:47 Patient Tobacco Use Status Former Tobacco user 02/15/25 09:36 Tobacco use type Cigarette 02/15/25 09:36 e-Cigarette/Vaping Use Never Used 02/15/25 09:36 PHQ-9: PHQ-9 Score PHQ-9: Total score 1 02/15/25 09:47 Depression Screening Interpretation: Negative Thrive Assessment: Date of Thrive Assessment Date Thrive assessed 02/15/25 02/15/25 09:36 Currently or been in a relationship where the following occur: No concerns reported Const General: no acute distress HENCO Head: Yes normal to inspection Eyes General: appearance normal, both eyes and all related structures Resp Effort & Inspection: normal respiratory effort Auscultation: crackles bilateral and diminished lung sounds Cardio Rhythm: abnormal rhythm irregularly irregular Heart sounds: S1 normal heart sound present and S2 normal heart sound present GI Inspection: Yes normal to inspection Palpation (GI): Soft to palpation Percussion: Yes normal to percussion Auscultation: normal bowel sounds Coding Level of Care Code Est Pt Level 4 (39569) Diagnoses Persistent atrial fibrillation I48.19 Non-small cell cancer of right lung C34.91 Tubulovillous adenoma D36.9 Recurrent squamous cell carcinoma of skin C44.92 COPD (chronic obstructive pulmonary disease) J44.9 HTN (hypertension) I10 Assessment & Plan Assessment & Plan (1) Persistent atrial fibrillation: Code(s): I48.19 - Other persistent atrial fibrillation Category: Medical Plan: Anticoagulated on Eliquis follow-up with cardiology (2) Non-small cell cancer of right lung: Comment: PET scan 10/11 showed mets to cervical, mediastinal LNs, ? verterbral body L1, addenoCa on Keytruda since October 2022 f/u , PET scan 04/13 stable right upper lobe pulmonary nodule improved from baseline. Immunotherapy stopped December 2024, patient developed recurrent squamous cell skin CA, monitor by oncology q [address] Code(s): C34.91 - Malignant neoplasm of unspecified part of right bronchus or lung Category: Medical Plan: Follow-up with oncology (3) Tubulovillous adenoma: Comment: colonoscopy large rectal polyp 10-12 mm pathology TUBULOVILLOUS ADENOMA, colon polyp TA 02/2022, repeat sigmoidoscopy 06/2022 rectal polyp 10-12 mm , path inflammatory polyp (no colon prep), repeat sigmoid in 01/2023 recommended by GI, but patient declined due to ongoing treatment for lung CA Code(s): D36.9 - Benign neoplasm, unspecified site Category: Medical Plan: Patient needs to follow-up with GI for repeat colonoscopy she would like to discuss it during her next appointment (4) Recurrent squamous cell carcinoma of skin: Comment: Established with Dermatology Code(s): C44.92 - Squamous cell carcinoma of skin, unspecified Category: Medical Plan: Follow-up with dermatology (5) COPD (chronic obstructive pulmonary disease): Code(s): J44.9 - Chronic obstructive pulmonary disease, unspecified Category: Medical Plan: Continue Anoro (6) HTN (hypertension): Code(s): I10 - Essential (primary) hypertension Category: Medical Plan: Patient will continue losartan and will restart a half a tablet of amlodipine. Patient will follow-up in 1 month
[2025-02-15 10:57] VITALS: BP 140/80
== END 2025-02-15 10:22 | disposition home or self-care (01) ==
LOC: HO.HMCC 09:23
PROVIDERS: PCP Internal Medicine; Visit Provider Internal Medicine
DX: I48.19 Other persistent atrial fibrillation (principal); C34.91 Malignant neoplasm of unspecified part of right bronchus or lung; J44.9 Chronic obstructive pulmonary disease, unspecified; D36.9 Benign neoplasm, unspecified site; C44.92 Squamous cell carcinoma of skin, unspecified; I10 Essential (primary) hypertension

== ENCOUNTER → 2025-02-15 09:22 | Outpatient (BNVA) | payer MEDICARE, SELFPAY | PROVIDERS: PCP Internal Medicine; Visit Provider Internal Medicine | DX: I48.19 Other persistent atrial fibrillation (principal); C34.91 Malignant neoplasm of unspecified part of right bronchus or lung; D36.9 Benign neoplasm, unspecified site; C44.92 Squamous cell carcinoma of skin, unspecified; J44.9 Chronic obstructive pulmonary disease, unspecified; I10 Essential (primary) hypertension; Z87.891 Personal history of nicotine dependence | CPT/HCPCS: 99212 ==

== ENCOUNTER 2025-03-18 09:33 | Outpatient (AMB) | payer MEDICARE, SELFPAY ==
--- OUTSIDE RECORDS SUMMARY | 2024-08-10 03:30 | XMS_ITS ---
Author Organization [facility] сергей [place] Address [address] [place] [address] Care Team Providers Care Review Analyst Name Role Phone Yamile Hearn MD Primary Care Provider Edmar Rubin Unavailable [phone] Judy Quintana Unavailable [phone] REASON FOR VISIT Seen Sooner Medications Medication SIG (Take, Route, Frequency, Duration) Notes Start Date End Date Status Simvastatin 40 MG Oral; Duration: 90 Unknown Warfarin Sodium 5 MG 1 tablet Orally Onc e a day Unknown Vit T27-Epnxvhbhhb-Rdxw-Fhls Unk nown Betamethasone Dipropionate Aug 0.05 % [...] No Encounters Encounter Location Date Provider [facility] [address] [place] [address] 08/10/2024 Judy Quintana Plan Of Treatment Next Appt Details Provider Name:Edmar Maier , 05/10/2025 01:30:00 PM, [address] [place], [address], Progress Notes * Aneta PLATA ADOB:1940 (84 yo F)Acc No.[id number]:08/10/2024 Progress Notes Patient: Aneta RIOS Provider: Srikanth Quintana DPM :1940 A ge:84 Y S ex:Female Date:08/10/2024 Address:[address] [place] [address] [facility] Pcp:Yamile Hearn MD Subjective: * Chief Complaints: [...] enies. C ardiovascular: Pacemaker d enies. 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 W PW d enies, denies. [...] Orally Once a day , Unknown Vit N43-Qbyvrkqoah-Kwxn-Cymn , Unknown Betamethasone Dipropionate Aug 0.05 % [...] 0 08/10/2024 Generated for Nargis velasco/Shemar/Omaira on: 05/18/2024 09:36 AM EST
--- OUTSIDE RECORDS SUMMARY | 2025-01-04 04:00 | XMS_ITS ---
[facility] Organization [facility] [place] Address [address] [facility] [place] [address] Care Team Providers Care Pattern Drum Maker Name Role Phone Yamile Hearn MD Primary Care Provider Edmar Rubin Unavailable [phone] Encounters Encounter Location Date Provider Diagnosis [facility] [address] [place] [address] 01/04/2025 Edmar Maier Plan Of Treatment Next Appt Details Provider Name:Edmar Maier , 05/10/2025 01:30:00 PM, [address] [place], [address], Progress Notes * Aneta PLATA ADOB:1940 (84 yo F)Acc No.[id number]:01/04/2025 Progress Note Patient: Aneta RIOS Provider: Qiana Maier DPM :1940 A ge:84 Y S ex:Female Date:01/04/2025 [facility] [place] Pcp:Yamile Hearn MD Subjective: * Chief Complaints: [...] 01/04/2025 Generated for Nargis velasco/Shemar/Omaira on: 1 05/18/2024 09:36 AM EST
--- OUTSIDE RECORDS SUMMARY | 2025-03-18 09:36 | XMS_ITS | Patient Health Record ---
Author Organization [facility] Address [address] [place] [address] Care Team Providers Care Lecturer Of Portuguese Name Role Phone Jose Gonzales MD Primary Care Provider Elton Sandy Unavailable [phone] Reason For Referral No Information Medications Medication SIG (Take, Route, Frequency, Duration) Notes Start Date End Date Status FLUoxetine HCl 10 MG Capsule 1 capsule in the morning Orally Once a day Active Simvastatin 40 MG Tablet 1 tablet in the evening Orally Once a day Active Warfarin Sodium 5 MG Tablet 1 tablet Ora lly Once a day Active Social History Social History Additional Details Category Social Info Options Details Miscellaneous: Marital status: Occupation: retired Section Notes: Stopped smoking in 2014; no sig alcohol Problems Problem Type SNOMED Code ICD Code Onset Dates Problem Status W/U Status Risk Notes Problem Screening for malignant neoplasm of colon (913685795) Encounter for screening for malignant neoplasm of colon (Z12.11) Active confirmed Problem Screening for malignant neoplasm of rectum (642090869) Encounter for screening for malignant neoplasm of rectum (Z12.12) Active confirmed Problem Long-term current use of anticoagulant (991042714) Long-term (current) use of anticoagulants (Z79.01) Active confirmed Plan Of Treatment Future Test Test Name Order Date COLONOSCOPY 04/24/2016 Insurance Providers Payer Name Payer Address Payer Phone Subscriber Number Group Number Insured Name Patient Relationship to Insured Coverage Start Date Coverage End Date MEDIC[place] [address] [place] [address] [phone] [id number] MATTHEW PLATA Self - patient is the insured MED[employer] ATT[employer] CLAIMS [address] [place] [address] [phone] [id number] MATTHEW PLATA Self - patient is the insured Medical (General) History Medical History History ICD Code 06-13-2006 upper endoscopy--gastric diver ticulum, gastritis, HH 4--2005 colonoscopy--negat dilia for polyps--revealed sigmoid diverticulosis and internal hemorrhoids Denies DE,DM,CVA,renal disease Collapsed lung in 2014--had a chest tub e by Dr. Mercado Hyperlipidemia Depression On Coumadin in relation to the previous heart surgery Surgical History Surgery Date(Month/Year) Open heart surgery for repai r of what sounds like an atrial septal defect in 2000 Carotid arteries-- both Squamous cell skin cancers
--- OUTSIDE RECORDS SUMMARY | 2025-03-18 09:36 | XMS_ITS | Patient Health Record ---
Author [facility] Address [address] [place] [address] Care Team Providers Care Gristmill Operator Name Role Phone Yamile Hearn MD Primary Care Provider Edmar Rubin Unavailable [phone] Judy Quintana Unavailable [phone] Allergies No Known Allergies Reason For Referral [...] 5 MG as directed Orally Active Vit Z35-Zvjnaznnmi-Lbjw-Hgfu Not -Taking Rosuvastatin Calcium 40 MG 1 [...] atherosclerosis of arteries of lower limbs (disorder) (93593893896964618 ) 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 (I70.203) Active confirmed Q7(A), Q8(2B), Q9(1B,2 C) Vital Signs Blood pressure diastolic 65 mm Hg 01/11/2025 Height 5 ft 4 in in 01/11/2025 Blood pressure systolic 128 mm Hg 01/11/2025 Weight 125 lbs 01/11/2025 BMI 21.45 kg/m2 01/11/2025 Procedures Procedure Date Ordered Date Performed Result Body Sit e 08783-UKHZACJ NAIL, 1-5 06/29/2024 N/A 15567-VSVF SKIN LESIONS, 2 TO 4 06/29/2024 N/A K3403-IZETZNDE DYSTROPHIC NAILS ANY # 06/29/2024 N/A 44547-KZZAHVW NAIL, 1-5 10/01/2024 N/A 39408-BHOI SKIN LESIONS, 2 TO 4 10/01/2024 N/A S6254-ZNWYDRRA DYSTROPHIC NAILS ANY # 10/01/2024 N/A 04224-RPQJPCO NAIL, 1-5 01/11/2025 N/A 48029-EAPP SKIN LESIONS, 2 TO 4 01/11/2025 N/A X2183-RVVCREXT DYSTROPHIC NAILS ANY # 01/11/2025 N/A Encounters Encounter Location Date Provider Diagnosis [facility] [address] [address] 06/29/2024 Edmar Maier 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 I70.203 ; Tinea unguium B35.1 ; Pain in right toe(s) M79.674 ; Pain in left toe(s) M79.675 ; Other hammer toe(s) (acquired), right foot M20.41 and Arthritis of joint of lesser toe, right M19.071 [facility] [address] [address] 10/01/2024 Edmar Maier Tinea unguium B35.1 ; 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 I70.203 ; Pain in right toe(s) M79.674 and Pain in left toe(s) M79.[address] [address] 01/11/2025 Edmar Maier Tinea unguium B35.1 ; 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 I70.203 ; Pain in right toe(s) M79.674 and Pain in left toe(s) M79.[address] [address] 01/03/2025 Edmar Maier Assessments Encounter Date Diagnosis [...] X ray : Foot, right 3V 06/29/2024 61150-OCDMHAO NAIL, 1-5 10/01/2024 97694-KUHHSPX NAIL, 1-5 06/29/2024 40766-HKCXYDH NAIL, 1-5 01/11/2025 01453-YSFU SKIN LESIONS, 2 TO 4 01/12/20 25 15397-JJON SKIN LESIONS, 2 TO 4 10/02/19 25 26374-ACRU SKIN LESIONS, 2 TO 4 06/30/19 25 H2910-ANFTKSVN DYSTROPHIC NAILS ANY # Z9990-FFMROUON DYSTROPHIC NAILS ANY # F6904-BKCJDZRU DYSTROPHIC NAILS ANY # 23667,R8781-AWZ TENDON SHEATH/LIGAMENT 0 09/10/2017 Next Appt Details Provider Name:Edmar Maier , 05/10/2025 01:30:00 PM, [address] [place], [address], Insurance Providers Payer Name Payer Address Payer Phone Subscriber Number Group Number Insured Name Patient Relationship to Insured Coverage Start Date Coverage End Date Medicare National Govt [facility] [facility] [address] [place] [address] [id number] Aneta Broussard Self - patient is the insured 7 [employer] [address] [place] [address] [id number] Aneta Broussard Self - patient is the insured 7 Medical (General) History Medical History History ICD Code Broken bones Skin Cancer Measles Mumps Chicken pox CAD (Cholesterol) covid-19 Depression High Blood Pressure Lung cancer A fib Surgical History Surgery Date(Month/Year) carotid artery 2009
--- NOTE | 2025-03-18 10:01 | AM.OFFWIN_ITS ---
Intake Vital Signs 03/18/25 10:02 Height 5 ft 4 in Weight 125 lb BMI 21.5 BP 138/60 Blood Pressure Location Lt brachial Position Sitting Pulse 71 Pulse Source Pulse Oximeter Temp 98.0 F Temp Source Oral Pulse Oximetry (%) 97 Oxygen Delivery Method Room Air Intake Visit Reasons: EP rt leg burn other day now big red warm Intake Note: pt presents with slow healing wound right lower leg after the corner of the area sales manager door scraped her leg near a week ago Patient Tobacco Use Status: Former Tobacco user Allergies atorvastatin Adverse Reaction (Intermediate, Verified 03/18/25 10:08) Gastrointestinal Upset lovastatin Adverse Reaction (Intermediate, Verified 03/18/25 10:08) Gastrointestinal Upset Do you need a note to return to daycare/school/sports/work: No HPI HPI Comments History of Present Illness Details History of Present Illness - The patient is an 84 year old individu al presenting with a leg wound that became red and warm yesterday. - The patient sustained an injury to the leg which started bleeding and subsequently developed surrounding erythema and warmth. - The patient denies fevers. - The patient has no history of MRSA inf ections. - The patient denies a history of diabet es. Review of Systems - Constitutional: Denies fever but repor ts a temperature of 98, which is above the patient's baseline of 96-97. - Integumentary: Reports a leg wound xu t initially bled, and is now red and warm. - Endocrine: Denies diabetes. All systems reviewed and are unremarkable except as noted in HPI Physical Exam General: Cooperative, healthy appearing, comfortable, no acute distress and well developed Orientation: Patient oriented x3 Limitations: No limitations Head: Normal to inspection Ears: Hearing grossly normal bilaterally Nose: Normal External nose present Face and sinus: Normal facial exam Eyes: Appearance normal, both eyes and all related structures Neck: Normal visual inspection and Yes full ROM Respiratory: Normal respiratory effort and able to speak in complete sentences. Skin: Red and warm area on the leg, suggestive of cellulitis; no rashes or lesions noted elsewhere Neuro: Patient oriented x3 Extremities: Normal to inspection except for right anterior lower leg with 2.5cm area of erythema and warmth with central scabbing. [facility] Medical History (Updated 03/18/25 @ 10:32 by Mandy Ramos PA-C) Non-small cell cancer of right lung Tubular adenoma Tubulovillous adenoma Annual physical exam Abnormal myocardial perfusion study Atrial septal defect Persistent atrial fibrillation COPD (chronic obstructive pulmonary disease) Tibia fracture Cancer, skin, squamous cell Anxiety Hypothyroid High cholesterol Surgical History Hx of bilateral cataract extraction History of esophagogastroduodenoscopy (EGD) H/O colonoscopy Status post bilateral carotid endarterectomy Status post cardiac surgery Family History Maternal Aunt Cervical cancer Social History Household Members: Significant Other Housing: House Are you a primary pet caregiver to a significant other at home: No Alcohol intake: current Alcohol intake frequency: does not drink Patient Tobacco Use Status: Former Tobacco user Tobacco use type: Cigarette e-Cigarette/Vaping Use: Never Used Advance Directives Date on File: 04/04/20 service: No Current occupational status: retired Cognitive needs: No Hearing needs: No Vision needs: Yes Review of Systems Const All systems reviewed & are unremarkable except as noted in HPI and below Physical Exam Vital Signs: Last Vital Signs Temp 98.0 F 03/18/25 10:02 Pulse 71 03/18/25 10:02 BP 138/60 03/18/25 10:02 Pulse Ox 97 03/18/25 10:02 Oxygen Delivery Method Room Air 03/18/25 10:02 BMI result Body Mass Index 21.5 Assessment & Plan Assessment & Plan (1) Cellulitis of right lower leg: Code(s): L03.115 - Cellulitis of right lower limb Plan: Plan Patient was informed and verbally consented to the use of an ambient scribe for clinic note documentation during this visit. Cellulitis of right lower limb - The patient's presentation with a red, warm area on the leg is consistent with cellulitis. - Given the absence of a history of MRSA, treatment will begin with a single antibiotic. - A prescription for Keflex will be sent to the [facility] in [place], to be taken every 6 hours for 7 days. - The patient was advised to keep the area clean and dry, and to apply an emollient such as Aquaphor to promote healing. - Area was marked with a surgical pen. If the redness expands significantly, the patient should call the office for an additional antibiotic to cover for MRSA without needing a return visit. - The patient is scheduled to see their primary care doctor next Friday. Medications: New cephalexin 500 mg PO Q6H 28 caps 0RF Coding Level of Care Code Est Pt Level 3 (99438) Diagnoses Cellulitis of right lower leg L03.115
[2025-03-18 10:02] VITALS: BP 138/60; PULSE 71; TEMP 36.7; O2SAT 97; BMI 21.5
== END 2025-03-18 10:28 | disposition home or self-care (01) ==
PROVIDERS: PCP Internal Medicine; Visit Provider Physician Assistant
DX: L03.115 Cellulitis of right lower limb (principal)

== ENCOUNTER → 2025-03-18 09:33 | Outpatient (BNVA) | payer MEDICARE, SELFPAY | PROVIDERS: PCP Internal Medicine; Visit Provider Physician Assistant | DX: L03.115 Cellulitis of right lower limb (principal) | CPT/HCPCS: 99212 ==

== ENCOUNTER 2025-03-25 10:47 | Outpatient (AMB) | payer MEDICARE, SELFPAY ==
[2025-03-25 10:50] VITALS: BP 134/66; PULSE 66; RESP 17; TEMP 36.4; O2SAT 95; BMI 21.5
--- NOTE | 2025-03-25 10:50 | A.OFFPC_ITS ---
Vital Signs 03/25/25 10:50 Height 5 ft 4 in Weight 125 lb BMI 21.5 BP 134/66 Blood Pressure Location Lt brachial Position Sitting Respiration 17 Pulse 66 Pulse Source Pulse Oximeter Temp 97.6 F Temp Source Oral Pulse Oximetry (%) 95 Oxygen Delivery Method Room Air Intake Visit Reasons: 1 mo follow up Intake Note: Pt is here today for 1 month follow up visit. Allergies atorvastatin Adverse Reaction (Intermediate, Verified 03/25/25 10:51) Gastrointestinal Upset lovastatin Adverse Reaction (Intermediate, Verified 03/25/25 10:51) Gastrointestinal Upset Medication List - Last Reconciled 03/25/25 by Yamile Hearn MD acetaminophen 1,000 mg (2 x 500 mg) PO Q6H PRN apixaban (Eliquis) 5 mg PO BID doxycycline hyclate 100 mg PO BID fluoxetine 10 mg PO DAILY levothyroxine 50 mcg PO DAILY lorazepam 0.5 mg PO DAILY PRN losartan 50 mg PO DAILY pembrolizumab 200 mg IV Q3W rosuvastatin 40 mg PO DAILY umeclidinium-vilanterol 62.5-25 mcg/actuation (Anoro Ellipta) 1 ea inhalation DAILY Tobacco use date assessed: 02/15/25 Dental Screening Dental Screen Date: 09/14/24 HPI 1 mo follow up HPI Details Pt presents for follow-up of hypothyroidism hypertension chronic anxiety and hyperlipidemia COPD stable on current medications. Patient was seen in the walk in for a right lower extremity redness and pain after patient hit her newton against chair Two weeks ago. She was prescribed Keflex 500 mg 4 times a day without significant improvement. [facility] Medical History Non-small cell cancer of right lung Tubular adenoma Tubulovillous adenoma Annual physical exam Abnormal myocardial perfusion study Atrial septal defect Persistent atrial fibrillation COPD (chronic obstructive pulmonary disease) Tibia fracture Cancer, skin, squamous cell Anxiety Hypothyroid High cholesterol Surgical History Hx of bilateral cataract extraction History of esophagogastroduodenoscopy (EGD) H/O colonoscopy Status post bilateral carotid endarterectomy Status post cardiac surgery Family History Maternal Aunt Cervical cancer Social History Household Members: Significant Other Housing: House Are you a primary health care facility administrator to a significant other at home: No Alcohol intake: current Alcohol intake frequency: does not drink Patient Tobacco Use Status: Former Tobacco user Tobacco use type: Cigarette e-Cigarette/Vaping Use: Never Used Advance Directives Date on File: 04/04/20 service: No Current occupational status: retired Cognitive needs: No Hearing needs: No Vision needs: Yes Questionnaire Thrive Questionnaire Date Thrive assessed: 02/15/25 I am a: Patient What is your living situation today?: I have a steady place to live Within the past 12 months, did the food you bought not last and you didn't have the money to get more?: Never true Within the past 12 months, did you worry whether your food would run out before you got money to buy more?: Never true Do you have trouble paying for medicines?: No Do you have trouble getting transportation to medical appointments?: No Do you have trouble paying your heating and electricity bill?: No Do you have trouble taking care of your child, family member or friend?: No Do you have trouble with day-to-day activities such as bathing, preparing meals, shopping, managing finances, etc.?: No Are you currently unemployed and looking for a job?: No Are you interested in more education?: No Please select the resources that you would like help with: None Currently or been in a relationship where the following occur: No concerns reported THRIVE Score: 0 SHADY-7 AMB Questionnaire SHADY-7 Date SHADY - 7 assessed: 02/15/25 Source: Developed by Drs. Devang Jordan, Terra Arias, Irvin Gonzalez and colleagues, with an educational kristel from [employer]. Review of Systems Const All systems reviewed & are unremarkable except as noted in HPI and below ENT Reports no additional complaints Card Reports no additional complaints Resp Reports no additional complaints GI Reports no additional complaints Reports no additional complaints Physical exam (Primary Care) Vital Signs: Last Vital Signs Temp 97.6 F 03/25/25 10:50 Pulse 66 03/25/25 10:50 Resp 17 03/25/25 10:50 BP 134/66 03/25/25 10:50 Pulse Ox 95 03/25/25 10:50 Oxygen Delivery Method Room Air 03/25/25 10:50 BMI result Body Mass Index 21.5 Tobacco/Smoking Status: Tobacco use Status Tobacco use date assessed 02/15/25 03/25/25 10:50 Patient Tobacco Use Status Former Tobacco user 03/25/25 10:50 Tobacco use type Cigarette 03/25/25 10:50 e-Cigarette/Vaping Use Never Used 03/25/25 10:50 Thrive Assessment: Date of Thrive Assessment Date Thrive assessed 02/15/25 03/25/25 10:50 Currently or been in a relationship where the following occur: No concerns reported Const General: no acute distress HENMT Head: Yes normal to inspection Mouth: Normal oral and palatal mucosa present Resp Effort & Inspection: normal respiratory effort Auscultation: clear to auscultation bilaterally Cardio Rhythm: regular rhythm Heart sounds: S1 normal heart sound present and S2 normal heart sound present GI Inspection: Yes normal to inspection Palpation (GI): Soft to palpation Extrem Other: was about 10 cm x 8 cm area of erythema slightly warm to the touch surrounding 2 cm scab, no purulent discharge Coding Level of Care Code Est Pt Level 4 (23393) Diagnoses Cellulitis L03.90 Non-small cell cancer of right lung C34.91 COPD (chronic obstructive pulmonary disease) J44.9 HTN (hypertension) I10 Assessment & Plan Assessment & Plan (1) Cellulitis: Code(s): L03.90 - Cellulitis, unspecified Category: Medical Plan: start doxycycline 100 mg b.i.d. follow-up in 1 week (2) Non-small cell cancer of right lung: Comment: PET scan 10/11 showed mets to cervical, mediastinal LNs, ? verterbral body L1, addenoCa on Keytruda since October 2022 f/u , PET scan 04/13 stable right upper lobe pulmonary nodule improved from baseline. Immunotherapy stopped December 2024, patient developed recurrent squamous cell skin CA, monitor by oncology q [address] Code(s): C34.91 - Malignant neoplasm of unspecified part of right bronchus or lung Category: Medical Plan: follow-up with oncology (3) COPD (chronic obstructive pulmonary disease): Code(s): J44.9 - Chronic obstructive pulmonary disease, unspecified Category: Medical Plan: continue Anoro (4) HTN (hypertension): Code(s): I10 - Essential (primary) hypertension Category: Medical Plan: continue current medications Orders: Orders Complete Blood Count Auto Diff Today C34.91 - Malignant neoplasm of unspecified part of right bronchus or lung, E03.9 - Hypothyroidism, unspecified, I10 - Essential (primary) hypertension TSH reflex Free T4 Today C34.91 - Malignant neoplasm of unspecified part of right bronchus or lung, E03.9 - Hypothyroidism, unspecified, I10 - Essential (primary) hypertension Comprehensive Weir. Panel Fast Today C34.91 - Malignant neoplasm of unspecified part of right bronchus or lung, E03.9 - Hypothyroidism, unspecified, I10 - Essential (primary) hypertension Medications: New doxycycline hyclate 100 mg PO BID 14 tabs 0RF Discontinued cephalexin Discontinued Reason: Doctor's Order 500 mg PO Q6H 28 caps 0RF
--- OUTSIDE RECORDS SUMMARY | 2025-03-25 13:14 | XMS_ITS | Patient Health Record ---
Author Organization [facility] Address [address] [place] [address] Care Team Providers Care Business Unit Director Name Role Phone Jose Gonzales MD Primary Care Provider Elton Sandy Unavailable [phone] Reason For Referral No Information Medications Medication [...] Problem Screening for malignant neoplasm of colon (303740654) Encounter for screening for malignant neoplasm of colon (Z12.11) Active confirmed Problem Screening for malignant neoplasm of rectum (240232983) Encounter for screening for malignant neoplasm of rectum (Z12.12) Active confirmed Problem Long-term current use of anticoagulant (063739971) Long-term (current) use of anticoagulants (Z79.01) Active confirmed Plan Of Treatment Future Test Test Name Order Date COLONOSCOPY 04/24/2016 Insurance Providers Payer Name Payer Address Payer Phone Subscriber Number Group Number Insured Name Patient Relationship to Insured Coverage Start Date Coverage End Date [place] [address] [place] [address] [phone] [id number] MATTHEW PLATA Self - patient is the insured MED[employer] ATT[employer] CLAIMS [address] [place] [address] [id number] MATTHEW PLATA Self - patient is the insured Medical (General) History Medical History History ICD Code 06-13-2006 upper endoscopy--gastric diver ticulum, gastritis, HH 4--2005 colonoscopy--negat dilia for polyps--revealed sigmoid diverticulosis and internal hemorrhoids Denies [place],DM,CVA,renal disease Collapsed lung in 2014--had a chest tub e by Dr. Mercado Hyperlipidemia Depression On Coumadin in relation to the previous heart surgery Surgical History Surgery Date(Month/Year) Open heart surgery for repai r of what sounds like an atrial septal defect in 2000 Carotid arteries-- both Squamous cell skin cancers
== END 2025-03-25 13:46 | disposition home or self-care (01) ==
LOC: HO.HMCC 10:48
PROVIDERS: PCP Internal Medicine; Visit Provider Internal Medicine
DX: L03.90 Cellulitis, unspecified (principal); C34.91 Malignant neoplasm of unspecified part of right bronchus or lung; J44.9 Chronic obstructive pulmonary disease, unspecified; I10 Essential (primary) hypertension

== ENCOUNTER → 2025-03-25 10:47 | Outpatient (BNVA) | payer MEDICARE, SELFPAY | PROVIDERS: PCP Internal Medicine; Visit Provider Internal Medicine | DX: L03.90 Cellulitis, unspecified (principal); C34.91 Malignant neoplasm of unspecified part of right bronchus or lung; J44.9 Chronic obstructive pulmonary disease, unspecified; I10 Essential (primary) hypertension | CPT/HCPCS: 99212 ==

== ENCOUNTER 2025-03-29 07:35 | Outpatient (REF) | payer MEDICARE, SELFPAY ==
--- OUTSIDE RECORDS SUMMARY | 2024-08-10 03:30 | XMS_ITS ---
Author Organization [facility] сергей Dexter Address [address] [place] [address] Care Team Providers Care Saw Setter Name Role Phone Yamile Hearn MD Primary Care Provider Edmar Rubin Unavailable [phone] Judy Quintana Unavailable [phone] REASON FOR VISIT Seen Sooner Medications Medication SIG (Take, Route, Frequency, Duration) Notes Start Date End Date Status Simvastatin 40 MG Oral; Duration: 90 Unknown Warfarin Sodium 5 MG 1 tablet Orally Onc e a day Unknown Vit U96-Dhjykyhgff-Ommz-Risc Unk nown Betamethasone Dipropionate Aug 0.05 % External; Duration: 10 Unkno wn Jantoven 5 MG Oral; Duration: 90 Unknown Eliquis Active Levothyroxine Sodium 50 MCG Oral; Duration: 30 Unknown FLUoxetine HCl 10 MG Oral; Duration: 90 Unknown Rosuvastatin Calcium Active amLODIPine Besylate Active Social History Tobacco Use: Social History Observation Description Date Details (start date - stop date) Former Smoker NA - NA Tobacco Use/Smoking Question Answer Notes Are you a: former smoker Additional Findings: Tobacco Non-User Cu rrent non-smoker,Ex-moderate cigarette smoker (10-19/day) Tobacco use other than smoking: Question Answer Notes Are you an other tobacco user? No Encounters Encounter Location Date Provider Diagnosis [facility] [address] [place] [address] 08/10/2024 Judy Quintana Plan Of Treatment Next Appt Details Provider Name:Edmar Maier , 05/10/2025 01:30:00 PM, [address] [place], [address], Progress Notes * Aneta PLATA ADOB:1940 (84 yo F)Acc No.[id number]:08/10/2024 Progress Notes Patient: Aneta RIOS Provider: Srikanth Quintana DPM :1940 A ge:84 Y S ex:Female Date:08/10/2024 Address:[address] [place] [address] [facility] Pcp:Yamile Hearn MD Subjective: * Chief Complaints: * 1 . Seen Sooner. * ROS: G eneral/Constitutional: Nausea d enies. V omiting d enies. H jaylen Thirst d enies. L oss appetite d enies, denies. C hills d enies, denies. F atigue d enies, denies. F ever d enies, denies. N ight Sweats d enies. U nexplained weight loss d enies. U nexplained weight gain d enies. O phthalmologic: Blurred vision d enies. R ed eye d enies. ? H EENTM: Dentures a dmits. D izziness d enies. G lasses/contacts a dmits. R etinopathy d enies. B lurred/double vision d enies, denies.?TMJ d enies, denies. D ischarge/drainage d enies. I mplants d enies, denies. S ore throat d enies. D ental implants d enies. H shanti of hearing d enies.?Difficulty chewing/swallowing/speaking d enies, denies. N ose bleeds a dmits, denies. S ore mouth d enies, denies. S wollen glands d enies. R espiratory: On Oxygen d enies. P neumonia/pleurisy d enies.?Bronchitis a dmits, denies. E mphysema d enies, denies. C oughing d enies.?Cough blood d enies, denies. S hortness of breath a dmits, denies. W heezing d enies. C ardiovascular: Pacemaker d enies. M REINFORCING STEEL ERECTOR d enies. W PW d enies, denies. C HF d enies, denies. H eart attack d enies, denies. S eptal defect?denies, denies. R apid beat d enies, denies. C hest pain d enies, denies. A trial Fib. a dmits. M urmur/Palpitations d enies, denies. G astrointestinal: Hemorrhoids d enies. S tomach/Abdominal pain d enies, denies. D ark blood stool d enies, denies. I rritable bowel d enies, denies.?Constipation d enies. D iarrhea d enies, denies. V omiting d enies. H ematology: Swelling d enies. C lots d enies. V aricose Veins d enies. B ruising d enies. B leeding problem d enies, denies. ? G enitourinary: Blood urine d enies. F requent/Painfu/urination/bladder control d enies, denies. K idney stones d enies, denies. I nfection (UTI) d enies. N ephropathy d enies. s ex trans dis (STD) d enies. P rostate d enies.? M usculoskeletal: Hammertoes d enies. B unions d enies, denies. S coliosis/kyphosis d enies. B ack Pain d enies. M uscle Cramps/ Resting d enies.?Muscle cramps / walking a dmits. G eneralized aches and pains d enies. W eakness d enies. I nteg.: Moore d enies. S cars d enies. C orns/calluses?denies. I ngrown nails d enies. P ainful nails d enies. O pen Sores d enies. R ashes d enies. N eurologic: Difficulty sleeping d enies, denies. B ipolar d enies. B rain disorder d enies, denies. N umbness d enies. B alance trouble d enies, denies. C onfusion d enies, denies. F ainting/blackouts d enies, denies. H eadache d enies. T ingling d enies. T remors d enies, denies. * Medical History: * Social History: T obacco Use: T obacco Use/Smoking A re you a: f ormer smoker A dditional Findings: Tobacco Non-User C urrent non-smoker,Ex-moderate cigarette smoker (10-19/day) Tobacco use other than smoking A re you an other tobacco user? N o M iscellaneous: C affeine: yes, 2-3 cups per day. Children: yes, 4. Exercise: yes, walking, yoga. Living with: family. Marital status: . Occupation: retired. * Medications: T aking Rosuvastatin Calcium , Taking amLODIPine Besylate , Taking Eliquis , Unknown Levothyroxine Sodium 50 MCG Tablet Oral , Unknown FLUoxetine HCl 10 MG Capsule Oral , Unknown Simvastatin 40 MG Tablet Oral , Unknown Warfarin Sodium 5 MG Tablet 1 tablet Orally Once a day , Unknown Vit N29-Bryejdyqsb-Enox-Mxql , Unknown Betamethasone Dipropionate Aug 0.05 % Ointment External , Unknown Jantoven 5 MG Tablet Oral Objective: * Vitals: Assessment: Plan: * Treatment: * Images: * The named appointment provid er may or may not be the originator of this progress note, and it is not deemed complete until electronically signed by the appointment provider. Sign off status: Pending * Provider: Srikanth Quintana DPM Date: 0 08/10/2024 Generated for Nargis velasco/Shemar/Omaira on: 05/30/2024 07:39 AM EST
--- OUTSIDE RECORDS SUMMARY | 2025-01-04 04:00 | XMS_ITS ---
[facility] Organization [facility] [place] Address [address] [facility] [place] [address] Care Team Providers Care Refinery Operator Helper Cracking Unit Name Role Phone Yamile Hearn MD Primary Care Provider Edmar Rubin Unavailable [phone] Encounters Encounter Location Date Provider Diagnosis [facility] [address] [place] [address] 01/04/2025 Edmar Maier Plan Of Treatment Next Appt Details Provider Name:Edmar Maier , 05/10/2025 01:30:00 PM, [address] [place], [address], Progress Notes * Aneta PLATA ADOB:1940 (84 yo F)Acc No.[id number]:01/04/2025 Progress Note Patient: Aneta RIOS Provider: Qiana Maier DPM :1940 A ge:84 Y S ex:Female Date:01/04/2025 [facility] [id number] Pcp:Yamile Hearn MD Subjective: * Chief Complaints: * * Medical History: Objective: * Vitals: Assessment: Plan: * Treatment: * Images: * The named appointment provid er may or may not be the originator of this progress note, and it is not deemed complete until electronically signed by the appointment provider. Sign off status: Pending * Provider: Qiana Maier DPM Date: 0 01/04/2025 Generated for Nargis velasco/Shemar/Omaira on: 1 05/30/2024 07:39 AM EST
--- NOTE | ~2025-03-29 | MM_ITS ---
EXAMINATION: MM SCREENING DIGITAL BREAST TOMOSYNTHESIS, BILATERAL CLINICAL INFORMATION: Screening. Asymptomatic. COMPARISON: Mammography: Comparison is made with available priors TECHNIQUE: Digital breast mammography with tomosynthesis is performed in both the craniocaudal and mediolateral oblique views along with computer-aided detection (CAD). FINDINGS: There are scattered areas of fibroglandular density. There are no significant masses, abnormal calcifications, or other abnormalities. MM/MM tomosynthesis screening BI IMPRESSION: No mammographic evidence of malignancy. ASSESSMENT: BI-RADS Category 1: Negative RECOMMENDATION: Routine annual mammography screening. 1 year F/U This examination should not preclude the clinical evaluation of a suspicious palpable abnormality. This patient's information was entered into a reminder system with a target due date for their next mammogram. Electronically signed by: Tootie Rust DO 03/29/2025 09:00 PM JULIO
--- OUTSIDE RECORDS SUMMARY | 2025-03-29 07:39 | XMS_ITS | Patient Health Record ---
Author Organization [facility] Address [address] [place] [address] Care Team Providers Care Travel Professional Name Role Phone Jose Gonzales MD Primary Care Provider Elton Sandy Unavailable [phone] Reason For Referral No Information Medications Medication [...] Problem Screening for malignant neoplasm of colon (746730498) Encounter for screening for malignant neoplasm of colon (Z12.11) Active confirmed Problem Screening for malignant neoplasm of rectum (726704842) Encounter for screening for malignant neoplasm of rectum (Z12.12) Active confirmed Problem Long-term current use of anticoagulant (510510496) Long-term (current) use of anticoagulants (Z79.01) Active confirmed Plan Of Treatment Future Test Test Name Order Date COLONOSCOPY 04/24/2016 Insurance Providers Payer Name Payer Address Payer Phone Subscriber Number Group Number Insured Name Patient Relationship to Insured Coverage Start Date Coverage End Date MEDICARE OF [place] [address] [place] [address] [id number] MATTHEW PLATA Self - patient is the insured MEDEX ATTN CLAIMS [address] [place] [address] [phone] [id number] MATTHEW PLATA Self - patient is the insured Medical (General) History Medical History History ICD Code 06-13-2006 upper endoscopy--gastric diver ticulum, gastritis, HH 4--2005 colonoscopy--negat dilia for polyps--revealed sigmoid diverticulosis and internal hemorrhoids Denies [place],DM,CVA,renal disease Collapsed lung in 2014--had a chest tub e by Dr. Mercado Hyperlipidemia Depression On Coumadin in relation to the previous heart surgery Surgical History Surgery Date(Month/Year) Open heart surgery for repai r of what sounds like an atrial septal defect in 2000 Carotid arteries-- both Squamous cell skin cancers
--- OUTSIDE RECORDS SUMMARY | 2025-03-29 07:39 | XMS_ITS | Patient Health Record ---
Author Organization [facility] [address] Address [address] [place] [address] Care Team Providers Care Apprentice Cook Name Role Phone Yamile Hearn MD Primary Care Provider Edmar Rubin Unavailable [phone] Judy Quintana Unavailable [phone] Allergies No Known Allergies Reason For Referral [...] 5 MG as directed Orally Active Vit D74-Ncuofqmckn-Sfkq-Pnti Not -Taking Rosuvastatin Calcium 40 MG 1 [...] atherosclerosis of arteries of lower limbs (disorder) (16013468650147509 ) 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 (I70.203) Active confirmed Q7(A), Q8(2B), Q9(1B,2 C) Vital Signs Blood pressure diastolic 65 mm Hg 01/11/2025 Height 5 ft 4 in in 01/11/2025 Blood pressure systolic 128 mm Hg 01/11/2025 Weight 125 lbs 01/11/2025 BMI 21.45 kg/m2 01/11/2025 Procedures Procedure Date Ordered Date Performed Result Body Sit e 62152-NIYUKSL NAIL, 1-5 06/29/2024 N/A 41520-IHHU SKIN LESIONS, 2 TO 4 06/29/2024 N/A W1745-OEUGEXZP DYSTROPHIC NAILS ANY # 06/29/2024 N/A 30672-DYFFCVY NAIL, 1-5 10/01/2024 N/A 90170-AHIG SKIN LESIONS, 2 TO 4 10/01/2024 N/A T0930-OCPEMGJT DYSTROPHIC NAILS ANY # 10/01/2024 N/A 40690-LQHPKDM NAIL, 1-5 01/11/2025 N/A 14045-LPQC SKIN LESIONS, 2 TO 4 01/11/2025 N/A Z3759-OLKLLLYY DYSTROPHIC NAILS ANY # 01/11/2025 N/A Encounters Encounter Location Date Provider Diagnosis [facility] [address] [address] 06/29/2024 Edmar Maier 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 I70.203 ; Tinea unguium B35.1 ; Pain in right toe(s) M79.674 ; Pain in left toe(s) M79.675 ; Other hammer toe(s) (acquired), right foot M20.41 and Arthritis of joint of lesser toe, right M19.071 [facility] [address] [address] 10/01/2024 Edmar Maier Tinea unguium B35.1 ; 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 I70.203 ; Pain in right toe(s) M79.674 and Pain in left toe(s) M79.[address] [address] 01/11/2025 Edmar Maier Tinea unguium B35.1 ; 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 I70.203 ; Pain in right toe(s) M79.674 and Pain in left toe(s) M79.[address] [address] 01/03/2025 Edmar Maier Assessments Encounter Date Diagnosis [...] X ray : Foot, right 3V 06/29/2024 84180-IPOBPSH NAIL, 1-5 10/01/2024 62475-BDVYXLX NAIL, 1-5 06/29/2024 92375-UOVAHJL NAIL, 1-5 01/11/2025 34926-BSXO SKIN LESIONS, 2 TO 4 01/12/20 25 73096-LNPQ SKIN LESIONS, 2 TO 4 10/02/19 25 99775-DCFU SKIN LESIONS, 2 TO 4 06/30/19 25 C6809-SYHDYUVI DYSTROPHIC NAILS ANY # N3436-MTGDNTZU DYSTROPHIC NAILS ANY # I2155-MKHEULUH DYSTROPHIC NAILS ANY # 51111,N4164-NSD TENDON SHEATH/LIGAMENT 0 09/10/2017 Next Appt Details Provider Name:Edmar Maier , 05/10/2025 01:30:00 PM, [address] [place], [address], Insurance Providers Payer Name Payer Address Payer Phone Subscriber Number Group Number Insured Name Patient Relationship to Insured Coverage Start Date Coverage End Date Medicare National Govt [employer] [facility] [address] [facility] [place] [address] [id number] Aneta Broussard Self - patient is the insured 7 [employer] Blue Shield [address] [place] [address] [id number] Aneta Broussard Self - patient is the insured 7 Medical (General) History Medical History History ICD Code Broken bones Skin Cancer Measles Mumps Chicken pox CAD (Cholesterol) covid-19 Depression High Blood Pressure Lung cancer A fib Surgical History Surgery Date(Month/Year) carotid artery 2009
== END 2025-03-29 07:36 | disposition home or self-care (01) ==
LOC: HO.MAMMO 07:35
PROVIDERS: PCP Internal Medicine; Visit Provider Internal Medicine
DX: Z12.31 Encounter for screening mammogram for malignant neoplasm of breast (principal)
CPT/HCPCS: 77063; 77067

== ENCOUNTER → 2025-03-29 07:45 | Outpatient (BNV) | payer MEDICARE, SELFPAY | PROVIDERS: PCP Internal Medicine; Visit Provider Internal Medicine | DX: Z12.31 Encounter for screening mammogram for malignant neoplasm of breast (principal) | CPT/HCPCS: 77063; 77067 ==